=== PATIENT | female | born 1975 | race Caucasian/White ===

== ENCOUNTER → 2024-10-06 | Outpatient (CLI) | payer MEDICAID, SELFPAY ==
[2024-10-06 12:31] LABS: AST(SGOT) 26 U/L (<=31); Alanine Aminotransfer ALT/SGPT 24 U/L (<=34); Albumin, Serum 4.0 g/dL (3.5-5.0); Alkaline Phosphatase 83 U/L (35-104); Anion Gap 14 (5-15); BUN 15 mg/dL (4-19); BUN/Creat Ratio 17.2 RATIO (10-20); Calcium,Total 9.2 mg/dL (7.6-11.0); Carbon Dioxide 22.2 mmol/L (21.0-32.0); Chloride 103 mmol/L (98-108); Cholesterol 215 mg/dL (<=200); Globulin 3.8 g/dL (2.2-4.2); Glucose 96 mg/dL (70-99); HIV Nonreactive (Nonreactive); Low Density Lipoprotein Calc. 130 mg/dL; Potassium 4.3 mmol/L (3.3-5.1); Syphilis Antibodies Nonreactive (Nonreactive); Triglycerides 142 mg/dL; Very Low Density Lipoprotein 28 mg/dL (5-40); cholesterol:hdl ratio screen 3.79
[2024-10-09 12:08] LABS: HEPATITIS B SURFACE AG Negative (Negative); Hep C Antibodies Reactive (Non Reactive)
== END | disposition home or self-care (01) ==
PROVIDERS: PCP Nurse Practitioner Family; Referring Provider Nurse Practitioner Family; Visit Provider Nurse Practitioner Family
DX: R73.03 Prediabetes (principal); Z13.220 Encounter for screening for lipoid disorders; Z11.3 Encounter for screening for infections with a predominantly sexual mode of transmission
CPT/HCPCS: 36415; 80053; 80061; 80074; 83036; 86703; 86780

== ENCOUNTER → 2024-10-15 | Outpatient (CLI) | payer MEDICAID, SELFPAY ==
[2024-10-15 15:18] LABS: Mucous, Urine 0 SEEN /hpf (<or=2+); Red Blood Cells-Urine 0 SEEN /hpf (0-5)
[2024-10-15 16:48] LABS: Hematocrit 39.7 % (37-47); Hemoglobin 12.8 g/dL (12.0-15.0); Immature Granulocytes Count 0.020 X10^3/uL (0.0-0.0); Mean Corp Hgb Conc 32.2 g/dL (32-36); Mean Corpuscular Volume 90.2 fL (81-99); Mean Platelet Vol. 9.6 fl (6.2-12.0); NRBC Flagged by Analyzer 0 % (0-5); Platelet Count 253 K/mm3 (150-450); RBC Distribution Width CV 13.7 % (11.6-14.6); RBC Distribution Width SD 45.6 fl (35.1-43.9); Red Blood Count 4.40 M/mm3 (4.2-5.4); White Blood Count 4.4 K/mm3 (4.4-11.0)
[2024-10-15 17:05] LABS: AST(SGOT) 25 U/L (<=31); Alanine Aminotransfer ALT/SGPT 18 U/L (<=34); Albumin, Serum 3.8 g/dL (3.5-5.0); Alkaline Phosphatase 77 U/L (35-104); Anion Gap 10 (5-15); BUN 8 mg/dL (4-19); BUN/Creat Ratio 11.6 RATIO (10-20); Calcium,Total 9.5 mg/dL (7.6-11.0); Carbon Dioxide 26.1 mmol/L (21.0-32.0); Chloride 102 mmol/L (98-108); Globulin 3.5 g/dL (2.2-4.2); Glucose 110 mg/dL (70-99); Potassium 4.2 mmol/L (3.3-5.1); Pro- Brain NATRIURETIC PEPTIDE 103 pg/mL (<=450)
[2024-10-15 17:49] LABS: Color, Urine Yellow (Yellow); Glucose, Dipstick Normal (Normal); Ketone-Dipstick Negative (Negative); Leukocyte Esterase-Dipstick Negative /ul (Negative); Nitrite-Dipstick Negative (Negative); Occult Blood-Urine Negative /ul (Negative); Protein-Dipstick Negative (Negative); Specific Gravity, Urine 1.010 (1.002-1.030); Urine Bilirubin Dipstick Negative (Negative)
[2024-10-15 18:55] LABS: Squamous Epithelial Cells - UA 0-5 SEEN /hpf (5-10)
[2024-10-20 10:09] LABS: HPV APTIMA, High Risk Negative (Negative)
== END | disposition home or self-care (01) ==
LOC: VSLAB 15:05
PROVIDERS: PCP Nurse Practitioner Family; Visit Provider Nurse Practitioner Family
DX: R63.5 Abnormal weight gain (principal); R30.0 Dysuria; Z12.4 Encounter for screening for malignant neoplasm of cervix
CPT/HCPCS: 36415; 80053; 81001; 83880; 85025; 87086; 87088; 87624; 88175; G0145

== ENCOUNTER → 2024-11-21 | Outpatient (CLI) | payer MEDICAID, SELFPAY ==
--- OUTSIDE RECORDS SUMMARY | 2024-11-21 11:31 | XMS RPT_ITS | CCD ---
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 M100.2200, L503.7505, L500.4050 #### [facility] [address] [place], [address] MCHC (RBC) [Mass/Vol] 32.2 g/dL Normal 32-36 [facility] Comment on above: Performed By: #### L 7400.0280, [id number], L400.0001, L100.0100, M100.2200, L503.7505, L500.4050 #### [facility] [address] [place], [address] MCV (RBC) [Entitic vol] 90.2 fL Normal 81-99 [facility] Comment on above: Performed By: #### L 7400.0280, [id number], L400.0001, L100.0100, M100.2200, L503.7505, L500.4050 #### [facility] [address] [place], [address] Monocytes/100 WBC (Bld) 9.2 % Normal 0-10 [facility] Comment on above: Performed By: #### L 7400.0280, [id number], L400.0001, L100.0100, M100.2200, L503.7505, L500.4050 #### [facility] [address] [place], [address] Neutrophils/100 WBC (Bld) 48.9 % Normal 47-70 [facility] Comment on above: Performed By: #### L 7400.0280, [id number], L400.0001, L100.0100, M100.2200, L503.7505, L500.4050 #### [facility] [address] [place], [address] Nucleated RBC (Bld) [#/Vol] 0 10*3/uL Normal 0-5 [facility] Comment on above: Performed By: #### L 7400.0280, L3410.9992, L400.0001, L100.0100, M100.2200, L503.7505, L500.4050 #### [facility] [address] [place], [address] Platelet mean volume (Bld) [Entitic vol] 9.6 fL Normal 6.2-12.0 [facility] Comment on above: Performed By: #### L 7400.0280, L3410.9992, L400.0001, L100.0100, M100.2200, L503.7505, L500.4050 #### [facility] [address] [place], [address] Platelets (Bld) [#/Vol] 253 10*3/uL Normal 150-450 [facility] Comment on above: Performed By: #### L 7400.0280, L3410.9992, L400.0001, L100.0100, M100.2200, L503.7505, L500.4050 #### [facility] [address] [place], [address] RBC (Bld) [#/Vol] 4.40 10*6/uL Normal 4.2-5.4 [facility] Comment on above: Performed By: #### L 7400.0280, L3410.9992, L400.0001, L100.0100, M100.2200, L503.7505, L500.4050 #### [facility] [address] [place], [address] RDW SD 45.6 fl High 35.1-43.9 [facility] Comment on above: Performed By: #### L 7400.0280, L3410.9992, L400.0001, L100.0100, M100.2200, L503.7505, L500.4050 #### [facility] [address] [place], [address] WBC (Bld) [#/Vol] 4.4 10*3/uL Normal 4.4-11.0 [facility] Comment on above: Performed By: #### L 7400.0280, L3410.9992, L400.0001, L100.0100, M100.2200, L503.7505, L500.4050 #### [facility] [address] [place], [address] Carbon dioxide, total [Moles /volume] in Central venous bloodOrdered By: Kayla Diego on 10-15-2024 CO2 [Moles/Vol] 26.1 mmol/L 21.0-32.0 [facility] Cervical or vaginal specimen microscopic examination by liquid based cytology (reportOrdered By: Kayla Diego on 10-15-2024 Cytology report Cyto stain.thin prep Doc (Cvx/Vag) Comment . [facility] Comment on above: Criteria not met, HP V Genotype not performed.Performed at: - [facility] [id number] Director: Liz Brown MD, Phone: [phone] at: = - [facility] [id number] Director: Liz Brown MD, Phone: [phone] Cervical or vagninal specime n microscopic examination by cytology stain (reported asOrdered By: Kayla Diego on 10-15-2024 Cytology report Cyto stain Doc (Cvx/Vag) Comment . [facility] Comment on above: The Pap smear is a s creening test designed to aid in thedetection of premalignant and malignant conditions of theuterine cervix. It is not a diagnostic procedure andshould not be used as the sole means of detecting cervicalcancer. Both false-positive and false-negative reports dooccur. Chloride assayOrdered By: Janie Diego on 10-15-2024 Chloride [Moles/Vol] 102 mmol/L 98-108 [facility] Comprehensive Metabolic Prof ilon 10-15-2024 Albumin [Mass/Vol] 3.8 g/dL Normal 3.5-5.0 [facility] Comment on above: Performed By: #### L 7400.0280, L3410.9992, L400.0001, L100.0100, M100.2200, L503.7505, L500.4050 #### [facility] [address] [place], [address] Albumin/Globulin [Mass ratio] 1.1 {ratio} Normal 0.9-2.4 [facility] Comment on above: Performed By: #### L 7400.0280, L3410.9992, L400.0001, L100.0100, M100.2200, L503.7505, L500.4050 #### [facility] [address] [place], [address] ALK PHOS 77 U/L Normal 35-104 [facility] Comment on above: Performed By: #### L 7400.0280, L3410.9992, L400.0001, L100.0100, M100.2200, L503.7505, L500.4050 #### [facility] [address] [place], [address] ALT [Catalytic activity/Vol] 18 U/L Normal <=34 [facility] Comment on above: Performed By: #### L 7400.0280, L3410.9992, L400.0001, L100.0100, M100.2200, L503.7505, L500.4050 #### [facility] [address] [place], [address] AST [Catalytic activity/Vol] 25 U/L Normal <=31 [facility] Comment on above: Performed By: #### L 7400.0280, L3410.9992, L400.0001, L100.0100, M100.2200, L503.7505, L500.4050 #### [facility] [address] [place], [address] Bilirubin [Mass/Vol] 0.27 mg/dL Normal 0.00-1.30 [facility] Comment on above: Performed By: #### L 7400.0280, L3410.9992, L400.0001, L100.0100, M100.2200, L503.7505, L500.4050 #### [facility] [address] [place], [address] BUN/CRE 11.6 RATIO Normal 10-20 [facility] Comment on above: Performed By: #### L 7400.0280, L3410.9992, L400.0001, L100.0100, M100.2200, L503.7505, L500.4050 #### [facility] [address] [place], [address] Calcium [Mass/Vol] 9.5 mg/dL Normal 7.6-11.0 [facility] Comment on above: Performed By: #### L 7400.0280, L3410.9992, L400.0001, L100.0100, M100.2200, L503.7505, L500.4050 #### [facility] [address] [place], [address] Chloride [Moles/Vol] 102 mmol/L Normal 98-108 [facility] Comment on above: Performed By: #### L 7400.0280, L3410.9992, L400.0001, L100.0100, M100.2200, L503.7505, L500.4050 #### [facility] [address] [place], [address] CO2 [Moles/Vol] 26.1 mmol/L Normal 21.0-32.0 [facility] Comment on above: Performed By: #### L 7400.0280, L3410.9992, L400.0001, L100.0100, M100.2200, L503.7505, L500.4050 #### [facility] [address] [place], [address] Creatinine [Mass/Vol] 0.72 mg/dL Normal 0.70-1.20 [facility] Comment on above: Performed By: #### L 7400.0280, L3410.9992, L400.0001, L100.0100, M100.2200, L503.7505, L500.4050 #### [facility] [address] [place], [address] GAP 10 Normal 5-15 [facility] Comment on above: Performed By: #### L 7400.0280, L3410.9992, L400.0001, L100.0100, M100.2200, L503.7505, L500.4050 #### [facility] [address] [place], [address] GFR/1.73 sq M.predicted among non-blacks MDRD (S/P/Bld) [Vol rate/Area] 104 mL/min/{1.73_m2} Normal >60 [facility] Comment on above: Result Comment: mL/m in/1.73m2 CKD-EPI Creatinine Equation (2020) Performed By: #### L 7400.0280, L3410.9992, L400.0001, L100.0100, M100.2200, L503.7505, L500.4050 #### [facility] [address] [place], [place], [address] Globulin (S) [Mass/Vol] 3.5 g/dL Normal 2.2-4.2 [facility] Comment on above: Performed By: #### L 7400.0280, L3410.9992, L400.0001, L100.0100, M100.2200, L503.7505, L500.4050 #### [facility] [address] [place], [address] Glucose [Mass/Vol] 110 mg/dL High 70-99 [facility] Comment on above: Performed By: #### L 7400.0280, L3410.9992, L400.0001, L100.0100, M100.2200, L503.7505, L500.4050 #### [facility] [address] [place], [address] Potassium [Moles/Vol] 4.2 mmol/L Normal 3.3-5.1 [facility] Comment on above: Performed By: #### L 7400.0280, L3410.9992, L400.0001, L100.0100, M100.2200, L503.7505, L500.4050 #### [facility] [address] [place], [address] Sodium [Moles/Vol] 138 mmol/L Normal 133-145 [facility] Comment on above: Performed By: #### L 7400.0280, L3410.9992, L400.0001, L100.0100, M100.2200, L503.7505, L500.4050 #### [facility] [address] [place], [address] T PROT 7.3 g/dL Normal 5.9-8.4 [facility] Comment on above: Performed By: #### L 7400.0280, L3410.9992, L400.0001, L100.0100, M100.2200, L503.7505, L500.4050 #### [facility] [address] [place], [address] Urea nitrogen [Mass/Vol] 8 mg/dL Normal 4-19 [facility] Comment on above: Performed By: #### L 7400.0280, L3410.9992, L400.0001, L100.0100, M100.2200, L503.7505, L500.4050 #### [facility] [address] [place], [address] Detection in cervical specim en of any of human papilloma virus (HPV) 16, 18, 31, 33,Ordered By: Kayla Diego on 10-15-2024 HPV 16+18+31+33+35+39+45+ 51+52+56+58+59+66+68 DNA Probe+sig amp Ql (Cvx) Negative Negative [facility] Comment on above: This nucleic acid am plification test detects fourteen high- risk HPV types (16,18,31,33,35,39,45,51,52,56,58,59,66,68)without differentiation. Eosinophil percentageOrdered By: Kayla Diego on 10-15-2024 Eosinophils/100 WBC (Bld) 1.4 % 0-5 [facility] Erythrocyte distribution wid th ratioOrdered By: Kayladallas Daviscristel on 10-15-2024 Erythrocyte distribution width (RBC) [Ratio] 13.7 % 11.6-14.6 [facility] Erythrocyte distribution wid th standard deviationOrdered By: Kayladallas Diego on 10-15-2024 Erythrocyte distribution width (RBC) [Ratio] 45.6 fl High 35.1-43.9 [facility] Glomerular filtration rate ( GFR) estimation/1.73 sq m using serum, plasma, or whole bOrdered By: Kayla Diego on 10-15-2024 GFR/1.73 sq M.predicted among non-blacks MDRD (S/P/Bld) [Vol rate/Area] 104 mL/min/{1.73_m2} >60 [facility] Comment on above: mL/min/1.73m2 CKD-EP I Creatinine Equation (2020) Hematocrit Auto (Bld) [Volum e fraction]Ordered By: Kayla Diego on 10-15-2024 Hematocrit (Bld) [Volume fraction] 39.7 % 37-47 [facility] Hemoglobin measurementOrdere d By: Kayla Diego on 10-15-2024 Hemoglobin (Bld) [Mass/Vol] 12.8 g/dL 12.0-15.0 [facility] Immature granulocytes/100 WB C Auto (Bld)Ordered By: Kayla Diego on 10-15-2024 Immature granulocytes/100 WBC (Bld) 0.500 % 0.0-0.9 [facility] Comment on above: IG% - Immature Granu locytes (promyelocytes, myelocytes and metamyelocytes) > 1% indicates that a LEFT SHIFT is Present. Ketones Test strip Ql (U)Ord ered By: Kayla Diego on 10-15-2024 Ketones Ql (U) Negative Negative [facility] L503.7505on 10-15-2024 Natriuretic peptide B (Bld) [Mass/Vol] 103 pg/mL Normal <=450 [facility] Comment on above: Result Comment: Hear t Failure Unlikely: < 300 pg/mL Heart Failure Likely < 50 Years: > 450 pg/mL 50-75 Years: > 900 pg/mL >75 Years: > 1800 pg/mL Performed By: #### L 7400.0280, L3410.9992, L400.0001, L100.0100, M100.2200, L503.7505, L500.4050 #### [facility] [address] [place], [address] Laboratory - Chemistry and C hemistry - challengeOrdered By: Kayla Diego on 10-15-2024 AST [Catalytic activity/Vol] 25 U/L <32 [facility] - CytologyOrdered By: Kayla Diego on 10-15-2024 [employer] Cyto stain Nom (Cvx/Vag) [ID] Comment . [facility] Comment on above: Andres Soares ologist (ASCP) Laboratory - Miscellaneous t estsOrdered By: Kayla Diego on 10-15-2024 Service comment (Unsp spec) [Interp] . . [facility] MCV (mean corpuscular volume ) determinationOrdered By: Kayla Diego on 10-15-2024 MCV (RBC) [Entitic vol] 90.2 fL 81-99 [facility] Mean corpuscular hemoglobin (MCH) determinationOrdered By: Kayla Diego on 10-15-2024 MCH (RBC) [Entitic mass] 29.1 pg 27.0-32.0 [facility] Mean corpuscular hemoglobin concentration (MCHC) determinationOrdered By: Kayla Diego on 10-15-2024 MCHC (RBC) [Mass/Vol] 32.2 g/dL 32-36 [facility] Mean platelet volume determi nationOrdered By: Kayla Diego on 10-15-2024 Platelet mean volume (Bld) [Entitic vol] 9.6 fL 6.2-12.0 [facility] Microscopic analysis of urin e for red blood cells (RBC)Ordered By: Kayla iDego on 10-15-2024 Microscopic analysis of urine for red blood cells (RBC) 0 SEEN /hpf 0-5 [facility] Monocyte percentageOrdered B y: Kayla Diego on 10-15-2024 Monocytes/100 WBC (Bld) 9.2 % 0-10 [facility] Mucus LM Ql (Urine sed)Order ed By: Kayla Diego on 10-15-2024 Mucus Ql (Urine sed) 0 SEEN /hpf [facility] Natriuretic peptide.B prohor vee N-Terminal [Mass/volume] in Serum or PlasmaOrdered By: Kayla Diego on 10-15-2024 Natriuretic peptide.B prohormone N-Terminal [Mass/Vol] 103 pg/mL <450 [facility] Comment on above: Heart Failure Unlike ly: < 300 pg/mLHeart Failure Likely< 50 Years: > 450 pg/mL50-75 Years: > 900 pg/mL>75 Years: > 1800 pg/mL Neutrophil percentageOrdered By: Kayla Diego on 10-15-2024 Neutrophils/100 WBC (Bld) 48.9 % 47-70 [facility] Nitrite Test strip Ql (U)Ord ered By: Kayla Dieog on 10-15-2024 Nitrite Ql (U) Negative Negative [facility] No Panel InformationOrdered By: Kayla Diego on 10-15-2024 Pap Smear Specimen Adequacy Comment . [facility] Comment on above: Satisfactory for jeannie luation. Endocervical and/or squamous metaplasticcells (endocervical component) are present. Nucleated red blood cell per centageOrdered By: Kayla Diego on 10-15-2024 Nucleated RBC/100 WBC (Bld) [Ratio] 0 % 0-5 [facility] Platelet countOrdered By: Janie Diego on 10-15-2024 Platelets (Bld) [#/Vol] 253 10*3/uL 150-450 [facility] Potassium measurement (mass/ volume)Ordered By: Kayla Diego on 10-15-2024 Potassium (Unsp spec) [Mass/Vol] 4.2 mmol/L 3.3-5.1 [facility] Protein Test strip Ql (U)Ord ered By: Kayla Diego on 10-15-2024 Protein Ql (U) Negative Negative [facility] RBC Auto (Bld) [#/Vol]Ordere d By: Kayla Diego on 10-15-2024 RBC (Bld) [#/Vol] 4.40 10*6/uL 4.2-5.4 [facility] Serum creatinine measurement (mass/volume)Ordered By: Kayla Diego on 10-15-2024 Creatinine [Mass/Vol] 0.72 mg/dL 0.70-1.20 [facility] Serum globulin measurementOr dered By: Kayla Diego 10-15-2024 Globulin (S) [Mass/Vol] 3.5 g/dL 2.2-4.2 [facility] Serum glucose measurement (m ass/volume)Ordered By: Kayla Diego on 10-15-2024 Glucose [Mass/Vol] 110 mg/dL High 70-99 [facility] Serum or plasma alanine valdivia otransferase (ALT) measurementOrdered By: Kayla Diego 10-15-2024 ALT [Catalytic activity/Vol] 18 U/L <35 [facility] Serum or plasma albumin marilee urement (mass/volume)Ordered By: Kayla Diego 10-15-2024 Albumin [Mass/Vol] 3.8 g/dL 3.5-5.0 [facility] Serum or plasma albumin/glob ulin mass ratioOrdered By: Kayla Diego 10-15-2024 Albumin/Globulin [Mass ratio] 1.1 {ratio} 0.9-2.4 [facility] Serum or plasma alkaline emerson sphatase measurementOrdered By: Kayla Diego 10-15-2024 ALP [Catalytic activity/Vol] 77 U/L 35-104 [facility] Serum or plasma calcium marilee urement (mass/volume)Ordered By: Kayla Diego 10-15-2024 Calcium [Mass/Vol] 9.5 mg/dL 7.6-11.0 [facility] Serum or plasma urea nitroge n measurement (mass/volume)Ordered By: Kayla Diego on 10-15-2024 Urea nitrogen [Mass/Vol] 8 mg/dL 4-19 [facility] Sodium levelOrdered By: Amaris Diego on 10-15-2024 Sodium [Moles/Vol] 138 mmol/L 133-145 [facility] Squamous epithelial cells de tection in urine sediment by light microscopyOrdered By: Kayla Diego on 10-15-2024 Epithelial cells.squamous LM Ql (Urine sed) 0-5 SEEN /hpf - [facility] Total proteinOrdered By: Rey landy Johnathon on 10-15-2024 Protein [Mass/Vol] 7.3 g/dL 5.9-8.4 [facility] Urinalysis, Completeon 10-15 EPI,SQUAMOUS 0-5 SEEN Normal - [facility] Comment on above: Order Comment: CLEAN CATCH Performed By: #### L 7400.0280, L3410.9992, L400.0001, L100.0100, M100.2200, L503.7505, L500.4050 #### [facility] [address] [place], [address] WBC 0-5 SEEN Normal 0-5 [facility] Comment on above: Order Comment: CLEAN CATCH Performed By: #### L 7400.0280, L3410.9992, L400.0001, L100.0100, M100.2200, L503.7505, L500.4050 #### [facility] [address] [place], [address] BACTERIA 0 SEEN Normal None Seen [facility] Comment on above: Order Comment: CLEAN CATCH Performed By: #### L 7400.0280, L3410.9992, L400.0001, L100.0100, M100.2200, L503.7505, L500.4050 #### [facility] [address] [place], [address] Mucus Ql (Urine sed) 0 SEEN Normal [facility] Comment on above: Order Comment: CLEAN CATCH Performed By: #### L 7400.0280, L3410.9992, L400.0001, L100.0100, M100.2200, L503.7505, L500.4050 #### [facility] [address] [place], [address] RBC 0 SEEN Normal 0-5 [facility] Comment on above: Order Comment: CLEAN CATCH Performed By: #### L 7400.0280, L3410.9992, L400.0001, L100.0100, M100.2200, L503.7505, L500.4050 #### [facility] [address] [place], [address] Urine clarityOrdered By: Rey Diego on 10-15-2024 Clarity (U) Clear Clear [facility] Urine color determinationOrd ered By: Kayla Diego on 10-15-2024 Color (U) Yellow Yellow [facility] Urine cultureOrdered By: Rey Diego on 10-15-2024 Bacteria identified Cx Nom (U) Positive Abnormal [facility] Urine glucose detectionOrder ed By: Kayla Diego on 10-15-2024 Glucose Ql (U) Normal mg/dl Normal [facility] Urine leukocyte esterase det ection by dipstickOrdered By: Kayla Diego on 10-15-2024 Leukocyte esterase Test strip Ql (U) Negative Negative [facility] Urine pHOrdered By: Kayla gonzales on 10-15-2024 pH (U) 7.0 [pH] 5.0 - 8.0 [facility] Urine sediment bacteria coun t by microscopy (number/high power field)Ordered By: Kayla Diego on 10-15-2024 Bacteria LM.HPF (Urine sed) [#/Area] 0 /[HPF] None Seen [facility] Urine specific gravity measu rementOrdered By: Kayla Diego on 10-15-2024 Specific gravity (U) [Rel density] 1.010 1.002-1.030 [facility] Urine urobilinogen measureme ntOrdered By: Kayla Diego on 10-15-2024 Urobilinogen Ql (U) 1 mg/dl High Normal [facility] White blood cell (WBC) count Ordered By: Kayla Johnathon on 10-15-2024 WBC (Bld) [#/Vol] 4.4 10*3/uL 4.4-11.0 [facility] White blood cell countOrdere d By: Kayla Diego on 10-15-2024 White blood cell count 0-5 SEEN /hpf 0-5 [facility] Hepatitis Panel Acuteon 09-29 HCV Interpretat Comment Normal . [facility] Comment on above: Result Comment: Posi tive HCV antibody screen without the presence of HCV RNA is consistent with a resolved past infection or a false positive HCV antibody. Consider repeat testing after one month. Performed at: [facility] [address] [id number] [employer]: Александр Florian PhD, Phone: [phone] Performed at: [facility] [address] [id number] [employer]: Radha Roche MD, Phone: [phone] Performed By: #### L 501.9985, L3000.0375, L3890.6006, L500.4050, L509.8002, L500.4100 #### [facility] [address] [place], [address] HCV log 10 TNP Normal . [facility] Comment on above: Performed By: #### L 501.9985, L3000.0375, L3890.6006, L500.4050, L509.8002, L500.4100 #### [facility] [address] [place], [address] HEP B CORE,IgM Negative Normal Negative [facility] Comment on above: Performed By: #### L 501.9985, L3000.0375, L3890.6006, L500.4050, L509.8002, L500.4100 #### [facility] [address] [place], [address] HEP B SURF AG Negative Normal Negative [facility] Comment on above: Performed By: #### L 501.9985, L3000.0375, L3890.6006, L500.4050, L509.8002, L500.4100 #### [facility] [address] [place], [address] Hep C Quant Not detected Normal . [facility] Comment on above: Performed By: #### L 501.9985, L3000.0375, L3890.6006, L500.4050, L509.8002, L500.4100 #### [facility] [address] [place], [address] HEP C VIRUS AB Reactive Abnormal Non Reactive [facility] Comment on above: Result Comment: Clie nt Requested Flag Performed By: #### L 501.9985, L3000.0375, L3890.6006, L500.4050, L509.8002, L500.4100 #### [facility] [address] [place], [address] HEPATITIS A-IgM Negative Normal Negative [facility] Comment on above: Result Comment: A ne gative anti-HAV IgM result suggests no recent or current HAV infection. Performed By: #### L 501.9985, L3000.0375, L3890.6006, L500.4050, L509.8002, L500.4100 #### [facility] [address] [place], [address] Test Informatio Comment Normal . [facility] Comment on above: Result Comment: The quantitative range of this assay is 15 IU/mL to 100 million IU/mL. Performed By: #### L 501.9985, L3000.0375, L3890.6006, L500.4050, L509.8002, L500.4100 #### [facility] [address] [place], [place], [id number] Anion gap in Serum or Plasma Ordered By: Kayla Diego on 10-06-2024 Anion gap [Moles/Vol] 14 mmol/L 5-15 [facility] BUN/creatinine ratioOrdered By: Kayla Diego on 10-06-2024 Urea nitrogen/Creatinine [Mass ratio] 17.2 mg/mg 10- [facility] Bilirubin, totalOrdered By: Kayla Diego on 10-06-2024 Bilirubin [Mass/Vol] 0.45 mg/dL 0.00-1.30 [facility] Calculated very low density lipoprotein (VLDL) cholesterol measurementOrdered By: Kayla Diego on 10-06-2024 Calculated very low density lipoprotein (VLDL) cholesterol measurement 28 mg/dL 5-40 [facility] Carbon dioxide, total [Moles /volume] in Central venous bloodOrdered By: Kayla Diego on 10-06-2024 CO2 [Moles/Vol] 22.2 mmol/L 21.0-32.0 [facility] Chloride assayOrdered By: Janie Diego on 10-06-2024 Chloride [Moles/Vol] 103 mmol/L 98-108 [facility] Comprehensive Metabolic Prof ilon 10-06-2024 Albumin [Mass/Vol] 4.0 g/dL Normal 3.5-5.0 [facility] Comment on above: Performed By: #### L 501.9985, L3000.0375, L3890.6006, L500.4050, L509.8002, L500.4100 #### [facility] [address] [place], [place], [id number] Albumin/Globulin [Mass ratio] 1.0 {ratio} Normal 0.9-2.4 [facility] Comment on above: Performed By: #### L 501.9985, L3000.0375, L3890.6006, L500.4050, L509.8002, L500.4100 #### [facility] [address] [place], [address] ALK PHOS 83 U/L Normal 35-104 [facility] Comment on above: Performed By: #### L 501.9985, L3000.0375, L3890.6006, L500.4050, L509.8002, L500.4100 #### [facility] [address] [place], [address] ALT [Catalytic activity/Vol] 24 U/L Normal <=34 [facility] Comment on above: Performed By: #### L 501.9985, L3000.0375, L3890.6006, L500.4050, L509.8002, L500.4100 #### [facility] [address] [place], [address] AST [Catalytic activity/Vol] 26 U/L Normal <=31 [facility] Comment on above: Performed By: #### L 501.9985, L3000.0375, L3890.6006, L500.4050, L509.8002, L500.4100 #### [facility] [address] [place], [place], [id number] ([phone] Bilirubin [Mass/Vol] 0.45 mg/dL Normal 0.00-1.30 [facility] Comment on above: Performed By: #### L 501.9985, L3000.0375, L3890.6006, L500.4050, L509.8002, L500.4100 #### [facility] [address] [place], [address] BUN/CRE 17.2 RATIO Normal 10-20 [facility] Comment on above: Performed By: #### L 501.9985, L3000.0375, L3890.6006, L500.4050, L509.8002, L500.4100 #### [facility] [address] [place], [place], [id number] [phone] Calcium [Mass/Vol] 9.2 mg/dL Normal 7.6-11.0 [facility] Comment on above: Performed By: #### L 501.9985, L3000.0375, L3890.6006, L500.4050, L509.8002, L500.4100 #### [facility] [address] [place], [address] Chloride [Moles/Vol] 103 mmol/L Normal 98-108 [facility] Comment on above: Performed By: #### L 501.9985, L3000.0375, L3890.6006, L500.4050, L509.8002, L500.4100 #### [facility] [address] [place], [address] CO2 [Moles/Vol] 22.2 mmol/L Normal 21.0-32.0 [facility] Comment on above: Performed By: #### L 501.9985, L3000.0375, L3890.6006, L500.4050, L509.8002, L500.4100 #### [facility] [address] [place], [address] Creatinine [Mass/Vol] 0.88 mg/dL Normal 0.70-1.20 [facility] Comment on above: Performed By: #### L 501.9985, L3000.0375, L3890.6006, L500.4050, L509.8002, L500.4100 #### [facility] [address] [place], [address] GAP 14 Normal 5-15 [facility] Comment on above: Performed By: #### L 501.9985, L3000.0375, L3890.6006, L500.4050, L509.8002, L500.4100 #### [facility] [address] [place], [address] GFR/1.73 sq M.predicted among non-blacks MDRD (S/P/Bld) [Vol rate/Area] 81 mL/min/{1.73_m2} Normal >60 [facility] Comment on above: Result Comment: mL/m in/1.73m2 CKD-EPI Creatinine Equation (2020) Performed By: #### L 501.9985, L3000.0375, L3890.6006, L500.4050, L509.8002, L500.4100 #### [facility] [address] [place], [address] Globulin (S) [Mass/Vol] 3.8 g/dL Normal 2.2-4.2 [facility] Comment on above: Performed By: #### L 501.9985, L3000.0375, L3890.6006, L500.4050, L509.8002, L500.4100 #### [facility] [address] [place], [address] Glucose [Mass/Vol] 96 mg/dL Normal 70-99 [facility] Comment on above: Performed By: #### L 501.9985, L3000.0375, L3890.6006, L500.4050, L509.8002, L500.4100 #### [facility] [address] [place], [address] Potassium [Moles/Vol] 4.3 mmol/L Normal 3.3-5.1 [facility] Comment on above: Performed By: #### L 501.9985, L3000.0375, L3890.6006, L500.4050, L509.8002, L500.4100 #### [facility] [address] [place], [address] Sodium [Moles/Vol] 140 mmol/L Normal 133-145 [facility] Comment on above: Performed By: #### L 501.9985, L3000.0375, L3890.6006, L500.4050, L509.8002, L500.4100 #### [facility] [address] [place], [address] T PROT 7.7 g/dL Normal 5.9-8.4 [facility] Comment on above: Performed By: #### L 501.9985, L3000.0375, L3890.6006, L500.4050, L509.8002, L500.4100 #### [facility] [address] [place], [address] Urea nitrogen [Mass/Vol] 15 mg/dL Normal 4-19 [facility] Comment on above: Performed By: #### L 501.9985, L3000.0375, L3890.6006, L500.4050, L509.8002, L500.4100 #### [facility] [address] [place], [place], [address] Gastroenterology Visit Repor ton 10-06-2024 Gastroenterology Visit Report [facility] [address] [place] [address] OFFICE VISIT Date of Service: 10/06/24 MR#: [id number] Acct: [id number] Name: LINDA BRUMFIELD Rep #: [id number] : 1975 Provider: LOLA plata Age/Sex: 48/F [place] [facility] [place]: S[place] Intake Vital Signs 10/06/24 09:46 Height 5 ft 7 in Weight: 269 lb 6 oz BMI 42.2 BP 128/69 H Respiration 18 Pulse 79 Temp 97.5 F L Pulse Oximetry (%) 97 Oxygen Delivery Method room air Intake Visit Reasons: CONSTIPATION Chief Complaint: constipation Ticketing Agent Required: No Accompanied by: Self Is patient in pain?: Yes Allergies erythromycin base (From E-Mycin) Allergy (Mild, Verified 10/06/24 09:44) chest pain and swelling hydroxyzine Allergy (Mild, Verified 10/06/24 09:44) elevates heart rate Medications ???Medication ???Instructions ???Recorded ???Confirmed ???Type all seltzer fizzy melts PO PRN 10/06/24 History hydrocortisone 2.5 % topical cream 1 applic KS QD-BID PRN rectal pa in 10/06/24 10/06/24 Rx with perineal applicator and bleeding #30 grams lubiprostone 24 mcg capsule 24 mcg PO BID #60 caps 10/06/24 Rx (Amitiza) ondansetron HCl 4 mg tablet 4 mg PO Q4-6H PRN 10/06/24 5 History pantoprazole 40 mg tablet,delayed 40 mg PO QDAY #90 tabs 10/06/24 0 10/06/24 Rx release peg 3350-electrolytes 236 240 ml PO Q10M #4,000 mL 10/06/24 10/06/24 Rx gram-22.74 gram-6.74 gram-5.86 gram solution (Golytely) polyethylene glycol 3350 17 17 g PO Q10M #119 grams 10/06/24 0 10/06/24 Rx gram/dose oral powder (Miralax) ropinirole 2 mg tablet 2 mg PO QHS 10/06/24 10/06/24 Hist ory [facility] Medical History (Updated 10/06/24 @ 13:53 by Candis Stone NP-C) Anxiety disorder Hallucinations Insomnia UTI (urinary tract infection) Back pain Abdominal pain Methamphetamine use Suicidal ideation RUQ pain PTSD (post-traumatic stress disorder) Medial meniscus tear Chondromalacia of knee Migraine with aura and without status migrainosus, not intractable Drug overdose, intentional Hypokalemia Surgical History Hx of cholecystectomy H/O tubal ligation Family History Brother Alcoholism Mother Anemia affecting fifth Anemia Anxiety Asthma Arthritis Bowel disease Cancer cervical and lung Depression Diabetes Heart disease Hypertension High cholesterol Kidney disease Liver disease Mental disorder Osteoporosis Ovarian cancer Respiratory disease CVA (cerebral vascular accident) Suicide attempt Thyroid disorder COPD (chronic obstructive pulmonary disease) Father Arthritis Diabetes Myocardial infarction Hypertension HPI HPI Chief Complaint: constipation Details: LINDA BRUMFIELD, is a 48 F who presents to the office today for - constipation, chronic, lately has to use a enema to have BM - has BM once every 2 weeks - formed and loose stool with BRB - can't use the bathroom unless she uses an enema - abdominal pain - excess gas - belching, flatulence - abdominal pain, epigastric and radiates down to lower abdomen, pain >1 year - methamphetamine - last used 1 month ago - just moved here from [facility] - Marijuana use intermittent - reports a remote history to Oxy abuse - she reports a history of inpatient rehab - denies any weight loss - nausea, constant, worse with eating - denies any emesis - denies any h/o colonoscopy or EGD - reports a history of UGI 15 years ago - suicidal ideation on ROS - reports she has tendencies to try and kill herself, I do not have that feeling now - reports her last attempt was in 2023 - I feel worthless - denies having a plan - she lives alone, trying to get her own place - she is currently in school for business - reports her fiance is currently incarcerated - reports there are no weapons in the home - I am happier now than I have been in years - weight gain 30lbs in the past 6 months The patient is a 48-year-old female presenting with severe constipation and abdominal pain. The constipation has been a long-standing issue, requiring the use of enemas for relief, and bowel movements occur no less than every two weeks, often accompanied by bright red blood. The abdominal pain is described as starting in the epigastric region and radiating to the lower abdomen, with episodes severe enough to cause the patient to cry in the position. The patient reports nausea, which worsens with eating, and has experienced significant weight gain of 30 pounds over the last six [address] scan of the abdomen and pelvis from August 2023 showed mild bile duct ectasia lik (more content not included)... Normal [facility] Glomerular filtration rate ( GFR) estimation/1.73 sq m using serum, plasma, or whole bOrdered By: Kayla Diego on 10-06-2024 GFR/1.73 sq M.predicted among non-blacks MDRD (S/P/Bld) [Vol rate/Area] 81 mL/min/{1.73_m2} >60 [facility] Comment on above: mL/min/1.73m2 CKD-EP I Creatinine Equation (2020) HIVon 10-06-2024 HIV Non-Reactive Normal Nonreactive [facility] Comment on above: Result Comment: Non- Reactive Reactive Repeatedly reactive samples must be confirmed according to CDC recommended confirmatory algorithms. The subresults for either HIVAG or AHIV can be used as an aid in the selection of the confirmation algorithm for reactive samples. Send out specimens with Reactive results to [facility] for confirmation. Order the HIV antibody detection and differentiation: lc#[id number] Performed By: #### L 501.9985, L3000.0375, L3890.6006, L500.4050, L509.8002, L500.4100 #### [facility] [address] [place], [place], [id number] Hemoglobin A1con 10-06-2024 HbA1c (Bld) [Mass fraction] 5.7 % Normal <=5.6 [facility] Comment on above: Result Comment: Norm al < 5.7 % Prediabetic 5.7 - 6.4 % Diabetic >or= 6.5 % Please note range changes. Performed By: #### L 501.9985, L3000.0375, L3890.6006, L500.4050, L509.8002, L500.4100 #### [facility] [address] [place], [address] Hemoglobin A1c percentageOrd ered By: Kayla Diego on 10-06-2024 HbA1c (Bld) [Mass fraction] 5.7 % <5.7 [facility] Comment on above: Normal < 5.7 % Predi abetic 5.7 - 6.4 % Diabetic >or= 6.5 % Please note range changes. LDL calc ser/plasOrdered By: Kayla Diego on 10-06-2024 Cholesterol in LDL [Mass/Vol] 130 mg/dL [facility] Comment on above: Tpbhakkcpb=554-915 m g/dL & Higher Mlta=155 mg/dL or greater Laboratory - Chemistry and C hemistry - challengeOrdered By: Kayla Diego on 10-06-2024 AST [Catalytic activity/Vol] 26 U/L <32 [facility] Lipid Profileon 10-06-2024 CHOL:HDL 3.79 Normal [facility] Comment on above: Performed By: #### L 501.9985, L3000.0375, L3890.6006, L500.4050, L509.8002, L500.4100 #### [facility] [address] [place], [address] Cholesterol [Mass/Vol] 215 mg/dL High <=200 [facility] Comment on above: Result Comment: Chol esterol level, Desirable <200 mg/dL Borderline high cholesterol 200-239 mg/dL High cholesterol >=240 mg/dL Recommendations of the NCEP Adult Treatment Panel for the following risk-cutoff thresholds for the [place] population. Performed By: #### L 501.9985, L3000.0375, L3890.6006, L500.4050, L509.8002, L500.4100 #### [facility] [address] [place], [address] Cholesterol in HDL [Mass/Vol] 57 mg/dL Normal [facility] Comment on above: Result Comment: Margaret onal Cholesterol Education Program (NCEP) guidelines: <40 mg/dL: Low HDL-cholesterol (major risk factor for CHD) >= 60 mg/dL: High HDL-cholesterol (negative risk factor for CHD) HDL-cholesterol is affected by a number of factors, e.g. smoking, exercise, hormones, sex and age. Performed By: #### L 501.9985, L3000.0375, L3890.6006, L500.4050, L509.8002, L500.4100 #### [facility] [address] [place], [address] Cholesterol in LDL [Mass/Vol] 130 mg/dL Normal [facility] Comment on above: Result Comment: Bord vsgsyn=613-619 mg/dL Higher Gyfn=036 mg/dL or greater Performed By: #### L 501.9985, L3000.0375, L3890.6006, L500.4050, L509.8002, L500.4100 #### [facility] [address] [place], [address] Cholesterol in VLDL [Mass/Vol] 28 mg/dL Normal 5-40 [facility] Comment on above: Performed By: #### L 501.9985, L3000.0375, L3890.6006, L500.4050, L509.8002, L500.4100 #### [facility] [address] [place], [address] Triglyceride [Mass/Vol] 142 mg/dL Normal [facility] Comment on above: Result Comment: The drugs N-Acetylcysteine and Metamizole may falsely depress this assay. Normal range: <150 mg/dL Borderline High: 150-199 mg/dL High: 200-499 mg/dL Very High: >500 mg/dL Performed By: #### L 501.9985, L3000.0375, L3890.6006, L500.4050, L509.8002, L500.4100 #### [facility] [address] [place], [address] No Panel InformationOrdered By: Kayla Diego on 10-06-2024 HCV log10 Confirmation TNP [facility] Comment on above: Test not performed Hepatitis C RNA Qnt (PCR) Test Info Comment . [facility] Comment on above: The quantitative ran ge of this assay is 15 IU/mL to 100million IU/mL. Hepatitis C Virus Note Comment . [facility] Comment on above: Positive HCV antibod y screen without the presence of HCVRNA is consistent with a resolved past infection or a falsepositive HCV antibody. Consider repeat testing after onemonth.Performed at: [facility] [address] [id number] Director: Александр Florian PhD, Phone: [phone] at: [facility] [address] [id number] Director: Radha Roche MD, Phone: [phone] HIV (1&2) Antibody Non-Reactive Nonreactive [facility] Comment on above: Non-ReactiveReactive Repeatedly reactive samples must be confirmed according to CDC recommended confirmatory algorithms. The subresults for either HIVAG or AHIV can be used as an aid in the selection of the confirmation algorithm for reactive samples.Send out specimens with Reactive results to [facility] for confirmation.Order the HIV antibody detection and differentiation: #[id number] Potassium measurement (mass/ volume)Ordered By: Kayla Diego on 10-06-2024 Potassium (Unsp spec) [Mass/Vol] 4.3 mmol/L 3.3-5.1 [facility] Screening total cholesterol/ high density lipoprotein (HDL) cholesterol ratioOrdered By: Kayladallas Diego on 10-06-2024 Cholesterol.total/Cho lesterol in HDL [Mass ratio] 3.79 {ratio} [facility] Serum creatinine measurement (mass/volume)Ordered By: Kayladallas Diego on 10-06-2024 Creatinine [Mass/Vol] 0.88 mg/dL 0.70-1.20 [facility] Serum globulin measurementOr dered By: Kayla Diego on 10-06-2024 Globulin (S) [Mass/Vol] 3.8 g/dL 2.2-4.2 [facility] Serum glucose measurement (m ass/volume)Ordered By: Kayla Diego on 10-06-2024 Glucose [Mass/Vol] 96 mg/dL 70-99 [facility] Serum or plasma alanine valdivia otransferase (ALT) measurementOrdered By: Kayladallas Diego 10-06-2024 ALT [Catalytic activity/Vol] 24 U/L <35 [facility] Serum or plasma albumin marilee urement (mass/volume)Ordered By: Kayla Diego on 10-06-2024 Albumin [Mass/Vol] 4.0 g/dL 3.5-5.0 [facility] Serum or plasma albumin/glob ulin mass ratioOrdered By: [facility]ladallas [facility] 10-06-2024 Albumin/Globulin [Mass ratio] 1.0 {ratio} 0.9-2.4 [facility] Serum or plasma alkaline emerson sphatase measurementOrdered By: Kayladallas Daviscristel 10-06-2024 ALP [Catalytic activity/Vol] 83 U/L 35-104 [facility] Serum or plasma calcium marilee urement (mass/volume)Ordered By: Kayla Diego on 10-06-2024 Calcium [Mass/Vol] 9.2 mg/dL 7.6-11.0 [facility] Serum or plasma cholesterol in HDL measurement (mass/volume)Ordered By: Kayla Diego on 10-06-2024 Cholesterol in HDL [Mass/Vol] 57 mg/dL >40 [facility] Comment on above: National Cholesterol Education Program (NCEP) guidelines:<40 mg/dL: Low HDL-cholesterol (major risk factor for CHD)>= 60 mg/dL: High HDL-cholesterol (negative risk factor for CHD)HDL-cholesterol is affected by a number of factors, e.g. smoking, exercise, hormones, sex and age. Serum or plasma cholesterol measurement (mass/volume)Ordered By: Kayla Diego on 10-06-2024 Cholesterol [Mass/Vol] 215 mg/dL High <201 [facility] Comment on above: Cholesterol level, D esirable <200 mg/dLBorderline high cholesterol 200-239 mg/dLHigh cholesterol >=240 mg/dLRecommendations of the NCEP Adult Treatment Panel for the following risk-cutoff thresholds for the [place] population. Serum or plasma hepatitis B virus surface antigen detection by immunoassayOrdered By: Kayla Diego on 10-06-2024 HBV surface Ag IA Ql Negative Negative [facility] Serum or plasma urea nitroge n measurement (mass/volume)Ordered By: Kayla Diego on 10-06-2024 Urea nitrogen [Mass/Vol] 15 mg/dL 4-19 [facility] Sodium levelOrdered By: Amaris Diego on 10-06-2024 Sodium [Moles/Vol] 140 mmol/L 133-145 [facility] Syphilis Antibodieson 2024 Syphilis Abs Non-Reactive Normal Nonreactive [facility] Comment on above: Performed By: #### L 501.9985, L3000.0375, L3890.6006, L500.4050, L509.8002, L500.4100 #### [facility] [address] [place], [place], [id number] Total proteinOrdered By: Rey Diego on 10-06-2024 Protein [Mass/Vol] 7.7 g/dL 5.9-8.4 [facility] Triglycerides measurementOrd ered By: Kayla Diego on 10-06-2024 Triglyceride [Mass/Vol] 142 mg/dL <199 [facility] Comment on above: The drugs N-Acetylcy steine and Metamizole may falsely depress this assay. Normal range: <150 mg/dLBorderline High: 150-199 mg/dLHigh: 200-499 mg/dLVery High: >500 mg/dL CULT URINEon 09-27-2023 CULT URINE SPECIMEN DESCRIPTION Urine, Clean Catch SPECIMEN TYPE Urine Tested at [facility] [address] [place] [address] CULTURE RESULTS Multiple bacterial species isolated from urine consistent with urogenital commensal organisms. REPORT STATUS 09/27/2023 FINAL REPORT Normal [facility] Comment on above: Performed By: #### U RNC #### Eva Fernández ([id number]) [facility] [address] [place] [address] TROPONIN I HIGH SENSITIVEon 09-26-2023 TROPONIN I HIGH SENSITIVE <3 Normal <15 [facility] Comment on above: Result Comment: Inte rpretive Guidelines: LOW RISK: <3 ng/L or Delta <4 and below 15 ng/L LOW INTERMEDIATE RISK: <15 ng/L HIGH INTERMEDIATE RISK: >/=15 ng/L HIGH RISK: >/=88 ng/L or Delta >/=[address] [facility] [address] [place] [address] Performed By: #### H STNI #### Eva Fernández ([id number]) [facility] [address] [place] [address] BASIC METABOLIC PNLon 2023 Anion gap [Moles/Vol] 9 mmol/L Normal 4-16 [facility] Comment on above: Performed By: #### B AMP #### Eva Fernández ([id number]) [facility] [address] [place] [address] Calcium [Mass/Vol] 9.0 mg/dL Normal 8.5-10.4 [facility] Comment on above: Performed By: #### B AMP #### Eva Fernández ([id number]) [facility] [address] [place] [address] Chloride [Moles/Vol] 104 mmol/L Normal 98-111 [facility] Comment on above: Performed By: #### B AMP #### Eva Fernández ([id number]) [facility] [address] [place] [address] CO2 [Moles/Vol] 26 mmol/L Normal 21-31 [facility] Comment on above: Performed By: #### B AMP #### Eva Fernández ([id number]) [facility] [address] [place] [address] Creatinine [Mass/Vol] 0.74 mg/dL Normal 0.60-1.20 [facility] [facility] Comment on above: Performed By: #### B AMP #### Eva Fernández ([id number]) [facility] [address] [place] [address] ESTIMATED GFR 100 mL/min/1.73 m2 Normal >59 [facility] Comment on above: Result Comment: Alis mated GFR was calculated using the CKD-EPI cr (2020) equation refit without race. The equation is recommended by the National Kidney Foundation - [place] Society of Nephrology Task Force. Tested at [facility] [address] [facility] [address] Performed By: #### B AMP #### Eva Fernández ([id number]) [facility] [address] [place] [address] Glucose [Mass/Vol] 97 mg/dL Normal 70-99 [facility] Comment on above: Performed By: #### B AMP #### Eva Fernández ([id number]) [facility] [address] [place] [address] Potassium [Moles/Vol] 3.7 mmol/L Normal 3.6-5.1 [facility] Comment on above: Performed By: #### B AMP #### Eva Fernández ([id number]) [facility] [address] [place] [address] Sodium [Moles/Vol] 139 mmol/L Normal 135-145 [facility] Comment on above: Performed By: #### B AMP #### Eva Fernández ([id number]) [facility] [address] [place] [address] Urea nitrogen [Mass/Vol] 13 mg/dL Normal 8-26 [facility] Comment on above: Performed By: #### B AMP #### Eva Fernández ([id number]) [facility] [address] [place] [address] CBC W/ DIFFon 09-25-2023 ABS BASOS 0.00 THOU/mcL Normal 0.00-0.20 [facility] Comment on above: Performed By: #### C BCD #### Eva Fernández ([id number]) [facility] [address] [place] [address] ABS EOS 0.10 THOU/mcL Normal 0.03-0.45 [facility] Comment on above: Performed By: #### C BCD #### Eva Fernández ([id number]) [facility] [address] [place] [address] ABS LYMPHS 2.10 THOU/mcL Normal 1.00-4.00 [facility] Comment on above: Performed By: #### C BCD #### Eva Fernández ([id number]) [facility] [address] [place] [address] ABS MONOS 0.50 THOU/mcL Normal 0.20-0.90 [facility] Comment on above: Performed By: #### C BCD #### Eva Fernández ([id number]) [facility] [address] [place] [address] ABS NEUTROPHIL 2.90 THOU/mcL Normal 1.80-7.70 [facility] Comment on above: Performed By: #### C BCD #### Eva Fernández ([id number]) [facility] [address] [place] [address] Basophils/100 WBC (Bld) 1 % Normal [facility] Comment on above: Result Comment: Test ed at [facility] [address] [facility] [address] Performed By: #### C BCD #### Eva Fernández ([id number]) [facility] [address] [place] [address] Eosinophils/100 WBC (Bld) 1 % Normal [facility] Comment on above: Performed By: #### C BCD #### Eva Fernández ([id number]) [facility] [address] [place] [address] Erythrocyte distribution width (RBC) [Ratio] 13.5 % Normal 12.3-17.0 [facility] Comment on above: Performed By: #### C BCD #### Eva Fernández ([id number]) [facility] [address] [place] [address] Hematocrit (Bld) [Volume fraction] 39.1 % Normal 36-46 [facility] Comment on above: Performed By: #### C BCD #### Eva Fernández ([id number]) [facility] [address] [place] [address] Hemoglobin (Bld) [Mass/Vol] 13.1 g/dL Normal 12.0-15.2 [facility] Comment on above: Performed By: #### C BCD #### Eva Fernández ([id number]) [facility] [address] [place] [address] Lymphocytes/100 WBC (Bld) 38 % Normal [facility] Comment on above: Performed By: #### C BCD #### Eva Fernández ([id number]) [facility] [address] [place] [address] MCH (RBC) [Entitic mass] 29.5 pg Normal 27-33 [facility] Comment on above: Performed By: #### C BCD #### Eva Fernández ([id number]) [facility] [address] [place] [address] MCHC (RBC) [Mass/Vol] 33.4 g/dL Normal 32-36 [facility] Comment on above: Performed By: #### C BCD #### Eva Fernández ([id number]) [facility] [address] [place] [address] MCV (RBC) [Entitic vol] 88.1 fL Normal 82-97 [facility] Comment on above: Performed By: #### C BCD #### Eva Fernández ([id number]) [facility] [address] [place] [address] Monocytes/100 WBC (Bld) 9 % Normal [facility] Comment on above: Performed By: #### C BCD #### Eva Fernández ([id number]) [facility] [address] [place] [address] PLATELET 215 THOU/mcL Normal 140-375 [facility] Comment on above: Performed By: #### C BCD #### Eva Fernández ([id number]) [facility] [address] [place] [address] Platelet mean volume (Bld) [Entitic vol] 8.0 fL Normal 7.4-11.5 [facility] Comment on above: Performed By: #### C BCD #### Eva Fernández ([id number]) [facility] [address] [place] [address] RBC 4.44 MIL/mcL Normal 3.80-5.20 [facility] Comment on above: Performed By: #### C BCD #### Eva Fernández ([id number]) [facility] [address] [place] [address] SEGS 51 % Normal [facility] Comment on above: Performed By: #### C BCD #### Eva Fernández ([id number]) [facility] [address] [place] [address] WBC 5.6 THOU/mcL Normal 3.6-10.5 [facility] Comment on above: Performed By: #### C BCD #### Eva Fernández ([id number]) [address] [address] [address] ABDOMEN PELVIS WO CONTRAS Ton 09-25-2023 CT ABDOMEN PELVIS WO CONTRAST CT ABDOMEN PELVIS WO CONTRAST HISTORY: Flank pain, kidney stone suspected left flank pain, vomiting , chest pain COMPARISON: Abdomen/pelvis CT 12-19 TECHNIQUE: Noncontrast multiplanar CT images of the abdomen and pelvis NOTE: If there are questions about the content of this report, please contact [facility] radiology by calling [phone] FINDINGS: LOWER CHEST: Unremarkable LIVER: Unremarkable GALLBLADDER/BILE DUCTS: Gallbladder surgically absent. Mild bile duct ectasia likely secondary to prior cholecystectomy. PANCREAS: Unremarkable. No mass or duct dilation SPLEEN: Unremarkable ADRENALS: Unremarkable KIDNEYS/URETERS: No obstructing renal or ureteral calculus. No hydronephrosis. GI TRACT: No obstruction, wall thickening, or pneumatosis. Normal appendix VESSELS: Unremarkable. No aneurysm LYMPH NODES: Unremarkable. No enlarged lymph nodes ABD WALL: Unremarkable PELVIS: Anteverted uterus. Intrauterine device in place. Unremarkable urinary bladder. BONES: Unremarkable OTHER: None IMPRESSION: No acute abdominopelvic CT abnormality. No obstructing renal or ureteral calculus. No hydronephrosis. SIGNED BY: William Reilly MD on 09/26/2023 12:21 AM 170.2 124.739 [facility] Imaging Report - Main Call Center - [facility] Call Center: Normal [facility] ED PROV NOTEon 09-25-2023 ED PROV NOTE [employer] Salesperson Authentication Interface Message Text [facility] EMERGENCY DEPARTMENT ED Encounter Arrival Date: 09/25/23 214 Linda Brumfield : 1975 [address] [place] [address] CSN: [id number] RAYRAY: [id number] EMERGENCY DEPARTMENT ENCOUNTER History: Chief Complaint Patient presents with Flank Pain Pt states she has been having flank pain on both sides for the last week with the left side hurting worse than the right, pt states the pain is rated a 7 out of 10, pt states she has been having burning and pain with urination HPI Linda Brumfield is a 47 year old female with PMH methamphetamine abuse presenting for evaluation of bilateral flank pain today. The patient reports that she is at intermittent pain of the bilateral flanks for the past week. She states the pain seems to come and go he is also been having some discomfort with urination. She denies any hematuria or history of kidney stone. Denies any fever, chest pain or shortness of breath. She does report some nausea/vomiting. History was provided by: Patient Triage Vitals ED Triage Vitals [09/25/232149] Enc Vitals Group BP 150/69 Pulse 75 Resp 18 Temp 98.2 F (36.8 C) Temp src TEMPORAL SpO2 98 % Weight 275 lb (124.7 kg) Height 5' 7 (1.702 m) Head Circumference Peak Flow Pain Score 7 Pain Loc Pain Education Exclude from Growth Chart Allergies Allergies Allergen Reactions Erythromycin Other (See Comments) Chest pain Past Medical History Past Medical History: Diagnosis Date AC (acromioclavicular) joint bone spurs PID (pelvic inflammatory disease) Surgical History Past Surgical History: Procedure Laterality Date CHOLECYSTECTOMY MULTIPLE TOOTH EXTRACTIONS TUBAL LIGATION Family History Family History Problem Relation Age of Onset Stroke Mother Ovarian cancer Mother Thyroid Disease Mother Mental illness Mother Diabetes Father Hypertension Father Diabetes Maternal Grandmother Diabetes Maternal Grandfather Stroke Maternal Grandfather Social History Social History Socioeconomic History Marital status: Single Tobacco Use Smoking status: Every Day Current packs/day: 1.00 Types: Cigarettes Substance and Sexual Activity Alcohol use: No Drug use: No Types: Marijuana Comment: former Sexual activity: Yes Partners: Male Social Determinants of Health Food Insecurities Transportation Interpersonal Safety Housing/Utilities Medications Prior to Admission medications Not on File I have reviewed the pertinent past medical history, past surgical history, social history, family history, current medications and allergies. Physical Exam: Vitals: 09/25/232149 BP: 150/69 Pulse: 75 Resp: 18 Temp: 98.2 F (36.8 C) SpO2: 98% Physical Exam Constitutional: General: She is not in acute distress. Appearance: Normal appearance. HENT: Head: Normocephalic and atraumatic. Right Ear: External ear normal. Left Ear: External ear normal. Nose: Nose normal. Mouth/Throat: Mouth: Mucous membranes are moist. Eyes: Extraocular Movements: Extraocular movements intact. Conjunctiva/sclera: Conjunctivae normal. Pupils: Pupils are equal, round, and reactive to light. Cardiovascular: Rate and Rhythm: Normal rate and regular rhythm. Pulses: Normal pulses. Heart sounds: Normal heart sounds. No murmur heard. No friction rub. No gallop. Pulmonary: Effort: Pulmonary effort is normal. No respiratory distress. Breath sounds: Normal breath sounds. No wheezing or rhonchi. Abdominal: General: Abdomen is flat. There is no distension. Palpations: Abdomen is soft. Tenderness: There is no abdominal tenderness. There is no right CVA tenderness, left CVA tenderness, guarding or rebound. Musculoskeletal: General: No deformity. Normal range of motion. Cervical back: Normal range of motion. Skin: General: Skin is warm and dry. Findings: No rash. Neurological: General: No focal deficit present. Mental Status: She is alert and oriented to person, place, and time. Sensory: No sensory deficit. Motor: No weakness. Psychiatric: Mood and Affect: Mood normal. Behavior: Behavior normal. Labs Recent Results (from the past 24 hour(s)) BAMP (Na,K,Cl,CO2,Glu,BUN,Cre at,Ca) Collection Time: 09/25/23 10:29 PM Result Value Ref Range BLD UREA NITROGEN 13 8 - 26 mg/dL SODIUM 139 135 - 145 mEq/L POTASSIUM 3.7 3.6 - 5.1 mEq/L CHLORIDE 104 98 - 111 mEq/L CO2 26 21 - 31 mmol/L GLUCOSE, RANDOM 97 70 - 99 mg/dL CREATININE 0.74 0.60 - 1.20 mg/dL ANION GAP 9 4 - 16 mmol/L CALCIUM 9.0 8.5 - 10.4 mg/dL ESTIMATED GFR 100 >59 mL/min/1.73 m2 CBC w diff Collection Time: 09/25/23 10:29 PM Result Value Ref Range WBC 5.6 3.6 - 10.5 THOU/mcL RBC 4.44 3.80 - 5.20 MIL/mcL HEMOGLOBIN 13.1 12.0 - 15.2 g/dL HEMATOCRIT 39.1 36 - 46 % MCV 88.1 82 - 97 fL MCH 29.5 27 - 33 pg MCHC 33.4 32 - 36 g/dL RDW (more content not included)... Normal [facility] HCG,POC URINEon 09-25-2023 Beta HCG ( test) Ql (U) Negative Normal NEGATIVE [facility] Comment on above: Performed By: #### P HCG #### Eva Fernández ([id number]) [facility] [address] [place] [address] HEPATIC FUNC PANELon 024 Albumin [Mass/Vol] 3.7 g/dL Normal 3.5-5.7 [facility] Comment on above: Performed By: #### L IVER #### Eva Fernández ([id number]) [facility] [address] [place] [address] ALP [Catalytic activity/Vol] 65 U/L Normal 35-135 [facility] Comment on above: Performed By: #### L IVER #### Eva Fernández ([id number]) [facility] [address] [place] [address] ALT [Catalytic activity/Vol] 10 U/L Normal 10-60 [facility] Comment on above: Performed By: #### L IVER #### Eva Fernández ([id number]) [facility] [address] [place] [address] AST [Catalytic activity/Vol] 13 U/L Normal 10-40 [facility] Comment on above: Performed By: #### L IVER #### Eva Fernández ([id number]) [facility] [address] [place] [address] Bilirubin [Mass/Vol] 0.3 mg/dL Normal 0.0-1.2 [facility] Comment on above: Performed By: #### L IVER #### Eva Fernández ([id number]) [facility] [address] [place] [address] Bilirubin.direct [Mass/Vol] 0.1 mg/dL Normal 0.0-0.2 [facility] Comment on above: Result Comment: Test ed at [facility] [address] [place] [address] Performed By: #### L IVER #### Eva Fernández ([id number]) [facility] [address] [place] [address] Protein [Mass/Vol] 7.0 g/dL Normal 6.0-8.0 [facility] Comment on above: Performed By: #### L IVER #### Eva Fernández ([id number]) [facility] [address] [place] [address] LIPASEon 09-25-2023 Lipase [Catalytic activity/Vol] 51 U/L Normal 11-82 [facility] Comment on above: Result Comment: Test ed at [facility] [address] [place] [address] Performed By: #### L IPA #### Eva Fernández ([id number]) [facility] [address] [place] [address] UAS REFLEXon 09-25-2023 Appearance (U) Clear Normal Clear [facility] Comment on above: Performed By: #### U ASR #### Eva Fernández ([id number]) [facility] [address] [place] [address] BACTERIA SEE NOTES Abnormal NONE [facility] Comment on above: Result Comment: FEW Performed By: #### U ASR #### Eva Fernández ([id number]) [facility] [address] [place] [address] BILIRUBIN,URINE Negative Normal NEGATIVE [facility] Comment on above: Performed By: #### U ASR #### Eva Fernández ([id number]) [facility] [address] [place] [address] BLOOD, URINE Negative Normal NEGATIVE [facility] Comment on above: Performed By: #### U ASR #### Eva Fernández ([id number]) [facility] [address] [place] [address] Color (U) Yellow Normal Yellow [facility] Comment on above: Result Comment: Ligh t Yellow Performed By: #### U ASR #### Eva Fernández ([id number]) [facility] [address] [place] [address] Glucose Ql (U) Negative Normal NEGATIVE [facility] Comment on above: Performed By: #### U ASR #### Eva Fernández ([id number]) [facility] [address] [place] [address] Ketones Ql (U) Negative Normal NEGATIVE [facility] Comment on above: Performed By: #### U ASR #### Eva Fernández ([id number]) [facility] [address] [place] [address] Leukocyte esterase Test strip Ql (U) 4+ (500 Ena/uL) Abnormal NEGATIVE [facility] Comment on above: Performed By: #### U ASR #### Eva Fernández ([id number]) [facility] [address] [place] [address] Mucus Ql (Urine sed) PRESENT Normal [facility] Comment on above: Result Comment: Test ed at [facility] [address] [facility] [address] Performed By: #### U ASR #### Eva Fernández ([id number]) [facility] [address] [place] [address] Nitrite Ql (U) Negative Normal NEGATIVE [facility] Comment on above: Performed By: #### U ASR #### Eva Fernández ([id number]) [facility] [address] [place] [address] pH (U) 6.0 [pH] Normal 5.0-8.0 [facility] Comment on above: Performed By: #### U ASR #### Eva Fernández ([id number]) [facility] [address] [place] [address] PROTEIN URIN Trace (10-20 mg/dL) Abnormal NEGATIVE [facility] Comment on above: Performed By: #### U ASR #### Eva Fernández ([id number]) [facility] [address] [place] [address] RBC (U) [#/Vol] /uL Normal <6 [facility] Comment on above: Result Comment: 3 to 5 Performed By: #### U ASR #### Eva Fernández ([id number]) [facility] [address] [place] [address] SPEC.GRAVITY,URINE 1.021 Normal 1.005-1.029 [facility] Comment on above: Performed By: #### U ASR #### Eva Fernández ([id number]) [facility] [address] [place] [address] SQUAMOUS EPI CELLS 6 to 10 Normal [facility] Comment on above: Performed By: #### U ASR #### Eva Fernández ([id number]) [facility] [address] [place] [address] UROBILINOGEN 1+ (2-3 mg/dL) Abnormal NORMAL [facility] Comment on above: Performed By: #### U ASR #### gayla Cortezew ([id number]) [facility] [address] [place] [address] WBC 11 to 20 Abnormal <6 [facility] Comment on above: Performed By: #### U ASR #### gayla Pradeep ([id number]) [facility] [address] [place] [address] SPECIMEN SOURCE Urine, Clean Catch Normal B [facility] Comment on above: Performed By: #### U ASR #### gayla Pradeep ([id number]) [facility] [address] [place] [address] URINE TYPE Urine Normal [facility] Comment on above: Performed By: #### U ASR #### Yunisummer Pradeep ([id number]) [facility] [address] [place] [address] CBC W Auto Differential pane l (Bld)on 10-09-2022 Basophils (Bld) [#/Vol] 0.1 10*3/uL 0.0 - 0.2 K/uL [employer] [facility] Basophils/100 WBC (Bld) 0.8 % [facility] Eosinophils (Bld) [#/Vol] 0.0 10*3/uL 0.0 - 0.6 K/uL [facility] Eosinophils/100 WBC (Bld) 0.3 % [facility] Erythrocyte distribution width (RBC) [Entitic vol] 13.7 % 12.4 - 15.4 % [facility] Hematocrit (Bld) [Volume fraction] 41.1 % 36.0 - 48.0 % [facility] Hemoglobin (Bld) [Mass/Vol] 13.6 g/dL 12.0 - 16.0 g/dL [facility] Lymphocytes (Bld) [#/Vol] 1.3 10*3/uL 1.0 - 5.1 K/uL [facility] Lymphocytes/100 WBC (Bld) 14.4 % [facility] MCH (RBC) [Entitic mass] 29.7 pg 26.0 - 34.0 pg [facility] MCHC (RBC) [Mass/Vol] 33.0 g/dL 31.0 - 36.0 g/dL [facility] MCV (RBC) [Entitic vol] 89.8 fL 80.0 - 100.0 fL [facility] Monocytes (Bld) [#/Vol] 0.8 10*3/uL 0.0 - 1.3 K/uL [facility] Monocytes/100 WBC (Bld) 9.3 % [facility] Neutrophils (Bld) [#/Vol] 6.8 10*3/uL 1.7 - 7.7 K/uL [facility] Neutrophils/100 WBC (Bld) 75.2 % [facility] Platelet mean volume (Bld) [Entitic vol] 7.7 fL 5.0 - 10.5 fL [facility] Platelets (Bld) [#/Vol] 238 10*3/uL 135 - 450 K/uL [facility] RBC (Bld) [#/Vol] 4.57 10*6/uL [facility] WBC (Bld) [#/Vol] 9.0 10*3/uL 4.0 - 11.0 K/uL [facility] Comprehensive metabolic 2000 panelon 10-09-2022 Albumin [Mass/Vol] 3.7 g/dL 3.4 - 5.0 g/dL [facility] Albumin/Globulin [Mass ratio] 0.9 {ratio} Low 1.1 - 2.2 [facility] ALP [Catalytic activity/Vol] 66 U/L 40 - 129 U/L [facility] ALT [Catalytic activity/Vol] 8 U/L Low 10 - 40 U/L [facility] Anion gap [Moles/Vol] 8 mmol/L 3 - 16 [facility] AST [Catalytic activity/Vol] 15 U/L 15 - 37 U/L [facility] Bilirubin [Mass/Vol] 0.4 mg/dL 0.0 - 1 .0 mg/dL [facility] Calcium [Mass/Vol] 9.6 mg/dL 8.3 - 10. 6 mg/dL [facility] Chloride [Moles/Vol] 103 mmol/L 99 - 11 0 mmol/L [facility] CO2 [Moles/Vol] 26 mmol/L 21 - 32 mmol/L [facility] Creatinine [Mass/Vol] 0.7 mg/dL 0.6 - 1.1 mg/dL [facility] GFR/1.73 sq M.predicted CKD-EPI (S/P/Bld) [Vol rate/Area] 60 - PINF [facility] Comment on above: Pediatric calculator link https://www.kidney.org/professionals/kdoqi/gfr_calculatorped Effective Jan 01, 2022 These results are not intended for use in patients <18 years of age. eGFR results are calculated without a race factor using the 2020 CKD-EPI equation. Careful clinical correlation is recommended, particularly when comparing to results calculated using previous equations. The CKD-EPI equation is less accurate in patients with extremes of muscle mass, extra-renal metabolism of creatinine, excessive creatinine ingestion, or following therapy that affects renal tubular secretion. Glucose [Mass/Vol] 91 mg/dL 70 - 99 mg/dL [facility] Interpretation and review of laboratory results Abnormal [facility] Potassium [Moles/Vol] 4.1 mmol/L 3.5 - 5.1 mmol/L [facility] Protein [Mass/Vol] 7.6 g/dL 6.4 - 8.2 g/dL [facility] Sodium [Moles/Vol] 137 mmol/L 136 - 145 mmol/L [facility] Urea nitrogen [Mass/Vol] 10 mg/dL 7 - 20 mg/dL [facility] HCG ( test) Qlon [facility] HCG Qualitative, Serumon HCG ( test) Ql Negative Detects HCG level >10 MIU/mL [facility] No Panel Informationon 10-09 [facility] Troponinon 10-09-2022 Troponin, High Sensitivity 8 ng/L 0 - 14 ng/L [facility] Comment on above: The high-sensitivity troponin T result should not be compared with other troponin methodologies. [facility] Troponin, High Sensitivity 8 ng/L 0 - 14 ng/L [facility] Comment on above: The high-sensitivity troponin T result should not be compared with other troponin methodologies. XR CHEST PORTABLEon 10-10-19 No definite portable radiographic evidence of acute cardiopulmonary disease when patient rotation to the right, patient body habitus and low lung volumes taken a consideration. [facility] EXAMINATION: ONE XRAY VIEW OF THE CHEST 10/09/2022 12:20 pm COMPARISON: Two-view chest 12/22/2017 HISTORY: ORDERING SYSTEM PROVIDED HISTORY: chest pain TECHNOLOGIST PROVIDED HISTORY: Reason for exam:->chest pain Reason for Exam: chest pain FINDINGS: Study degraded by patient rotation to the right. No acute pulmonary consolidation, airspace infiltrate, detectable pleural effusion, pneumothorax, pulmonary edema, cardiomegaly or mediastinal widening when patient positioning taken a consideration [facility] Bucky Barrios D O - 10/09/2022 EXAMINATION: ONE XRAY VIEW OF THE CHEST 10/09/2022 12:20 pm COMPARISON: Two-view chest 12/22/2017 HISTORY: ORDERING SYSTEM PROVIDED HISTORY: chest pain TECHNOLOGIST PROVIDED HISTORY: Reason for exam:->chest pain Reason for Exam: chest pain FINDINGS: Study degraded by patient rotation to the right. No acute pulmonary consolidation, airspace infiltrate, detectable pleural effusion, pneumothorax, pulmonary edema, cardiomegaly or mediastinal widening when patient positioning taken a consideration IMPRESSION: No definite portable radiographic evidence of acute cardiopulmonary disease when patient rotation to the right, patient body habitus and low lung volumes taken a consideration. [facility] Radiology Study observation (narrative) [facility] XR CHEST PORTABLEOrdered By: Bucky Barrios on 10-09-2022 [facility] Work Phone: FOLATESon 03-17-2020 FOLATES 15.3 ng/mL Normal >5.21 [facility] Comment on above: Performed By: #### L [id number] #### [facility] [address] [place] [address] PREG TEST, UA QUALon 020 TEST,UR QL Negative Normal NEGATIVE [facility] Comment on above: Performed By: #### L [id number] #### [facility] [address] [place] [address] SARS CoV-2, OL, PCR RAPIDon 03-17-2020 SARS CoV-2, OL, PCR RAPID Undetected Normal Undetected [facility] Comment on above: Order Comment: Sympt omatic?->No Indications (select all that apply)->Admission Result Comment: Testing was performed using the Quidel Aminata Direct. Fact sheets for this Emergency Use Authorization (EUA) assay can be found at the following links: For Healthcare Providers: https://www.fda.gov/media/755757/download For Patients: https://www.fda.gov/media/525772/download Test Performed by: [facility],[address] [place] [address], [employer]cher [employer]: Umu Cuello MD; CLIA#: [id number] Performed By: #### L QY5382 #### [place] [address] SARS CoV-2, OL, PCR RAPID Undetected Normal Undetected [facility] Comment on above: Order Comment: Sympt omatic?->No Indications (select all that apply)->Behavioral Med Result Comment: Testing was performed using the Quidel Aminata Direct. Fact sheets for this Emergency Use Authorization (EUA) assay can be found at the following links: For Healthcare Providers: https://www.fda.gov/media/607391/download For Patients: https://www.fda.gov/media/524102/download Test Performed by: [facility],[address] [place] [address], [employer]: Umu Cuello MD; CLIA#: [id number] Performed By: #### L [id number] #### [place] [address] SARS-CoV-2 Ag, QL (SWAB)on 1 05-18-2019 SARS-CoV-2 Ag, QL (SWAB) Negative Normal Undetected [facility] Comment on above: Order Comment: Sympt omatic?->No Indications (select all that apply)->Behavioral Med Performed By: #### L [id number] #### [address] [place] [address] TOX SCREEN, RAPID, URon 12- AMPHETAMINES, UR Negative Normal Cutoff: 1000 [facility] Comment on above: Performed By: #### L PV3414 #### [facility] [address] [place] [address] BARBITURATES, UR Negative Normal Cutoff: 200 [facility] Comment on above: Performed By: #### L QW6659 #### [facility] [address] [place] [address] BENZODIAZEPINES, UR Negative Normal Cutoff: 200 [facility] Comment on above: Performed By: #### L YA0904 #### [place] [address] BUPRENORPHINE, UR Negative Normal Cutoff: 5 [facility] Comment on above: Result Comment: Note , cutoff changed from 10 to 5 ng/mL 02/13/18. Performed By: #### L CD0967 #### [place] [address] CANNABINOID, UR Negative Normal Cutoff: 50 [facility] Comment on above: Performed By: #### L GD3928 #### [place] [address] COCAINE, UR Negative Normal Cutoff: 300 [facility] Comment on above: Performed By: #### L OD8600 #### [place] [address] FENTANYL, UR Negative Normal Cutoff: 200 [facility] Comment on above: Performed By: #### L OP5100 #### [place] [address] METHADONE, UR Negative Normal Cutoff: 300 [facility] Comment on above: Performed By: #### L OU6349 #### [place] [address] OPIATES, UR Negative Normal Cutoff: 300 [facility] Comment on above: Performed By: #### L JD8210 #### [place] [address] OXYCODONE, UR Negative Normal Cutoff: 300 [facility] Comment on above: Performed By: #### L PF8397 #### [facility] [address] [place] [address] PHENCYCLIDINE, UR Negative Normal Cutoff: 25 [facility] Comment on above: Performed By: #### L GH1870 #### JES[place]A [facility] [address] [place] [address] PROPOXYPHENE, UR Negative Normal Cutoff: 300 [facility] Comment on above: Result Comment: IM PORTANT This is a screening method. The test results are to be used for medical purposes only. Many common compounds can cause false positive results. Confirmation of a positive result is available upon request. Performed By: #### L YG4387 #### [place] [address] TRICYCLICS, UR Negative Normal Cutoff: 300 [facility] Comment on above: Performed By: #### L KV3918 #### [place] [address] TSHon 03-17-2020 TSH Qn 2.91 u[iU]/mL Normal 0.30-5.60 [facility] Comment on above: Performed By: #### L AB9535 #### [place] [address] URINALYSISon 03-17-2020 Protein (U) [Mass/Vol] Trace Abnormal NEGATIVE [facility] Comment on above: Performed By: #### L JP6426 #### [place] [address] RBC (U) [#/Vol] 4 - 5 Normal 1-3 [facility] Comment on above: Performed By: #### L IS1213 #### [place] [address] UR BACTERIA None Seen Normal NONE SEEN [facility] Comment on above: Performed By: #### L LA0548 #### [place] [address] UR BILIRUBIN Negative Normal NEGATIVE [facility] Comment on above: Performed By: #### L CZ0899 #### [facility] [address] [place] [address] UR BLOOD 3 + mg/dL Abnormal NEGATIVE [facility] Comment on above: Performed By: #### L TK1539 #### [facility] [address] [place] [address] UR CLARITY Clear Normal CLEAR [facility] Comment on above: Performed By: #### L BB5849 #### [facility] [address] [place] [address] UR COLOR Yellow Normal YELLOW [facility] Comment on above: Performed By: #### L NH7325 #### [facility] [address] [place] [address] UR GLUCOSE Normal Normal NEGATIVE [facility] Comment on above: Performed By: #### L TQ1231 #### [facility] [address] [place] [address] UR KETONE Negative Normal NEGATIVE [facility] Comment on above: Performed By: #### L VO1866 #### [facility] [address] [place] [address] UR LEUKOCYTE Trace Abnormal NEGATIVE [facility] Comment on above: Performed By: #### L ZQ8451 #### [facility] [address] [place] [address] UR MUCOUS Rare Normal NONE SEEN [facility] Comment on above: Performed By: #### L FZ3517 #### [facility] [address] [place] [address] UR NITRITE Negative Normal NEGATIVE [facility] Comment on above: Performed By: #### L SC5252 #### [facility] [address] [place] [address] UR PH 5.5 Normal 5.0-9.0 [facility] Comment on above: Performed By: #### L MM9890 #### [facility] [address] [place] [address] UR SP GRAVITY 1.027 Normal 1.005-1.030 [facility] Comment on above: Performed By: #### L UL6686 #### [facility] [address] [place] [address] UR SQUAMOUS EPI 1 - 3 Normal 3-5 [facility] Comment on above: Performed By: #### L FC6745 #### [facility] [address] [place] [address] UR UROBILINOGEN Normal Normal <2.0 [facility] Comment on above: Performed By: #### L VO1084 #### [facility] [address] [place] [address] UR WBC 11 - 20 Abnormal 1-3 [facility] Comment on above: Performed By: #### L IG4722 #### [facility] [address] [place] [address] VITAMIN B12on 03-17-2020 Cobalamin (Vitamin B12) [Mass/Vol] 262 pg/mL Normal 180-914 [facility] Comment on above: Performed By: #### L SO4780 #### [place] [address] ACETAMINOPHENon 03-16-2020 Acetaminophen [Mass/Vol] < 10.0 Normal [facility] Comment on above: Result Comment: THERAPEUTIC RANGE 10 TO 30 UG/ML TOXIC RANGE 4 HOURS POST-INGESTION >150 UG/ML 8 HOURS POST-INGESTION >75 UG/ML 12 HOURS POST-INGESTION >40 UG/ML Performed By: #### L IY0033, WRU3575, NVQ0710, WKL9095, XHC4268 #### [place] [address] CBCon 03-16-2020 Basophil Abs. 0.0 10*3/uL Normal 0.0-0.1 [facility] Comment on above: Performed By: #### L ZK9073, XGQ0579, ZOO9575, GFL2198, WAY7772 #### [place] [address] Basophils/100 WBC (Bld) 0.6 % Normal 0.0-1.0 [facility] Comment on above: Performed By: #### L VS0727, KPA4502, HWR3136, MOF7026, DRI1802 #### [address] [place] [address] Differential type Auto Normal [facility] Comment on above: Performed By: #### L HB3381, RYH6881, FHY6943, JRK2390, GVU3227 #### [facility] [address] [place] [address] Eosinophils (Bld) [#/Vol] 0.1 10*3/uL Normal 0.0-0.5 [facility] Comment on above: Performed By: #### L SD0359, NBB0196, GQU8437, TWQ0420, JBN8297 #### [address] [address] Eosinophils/100 WBC (Bld) 1.0 % Normal 0.3-5.0 [facility] Comment on above: Performed By: #### L EA4426, WCH4391, TCD0343, SRG0360, GYU5108 #### [place] [address] Erythrocyte distribution width (RBC) [Ratio] 14.9 % High 11.5-13.1 [facility] Comment on above: Performed By: #### L AE7860, JNJ1280, FXL4857, JJG8389, SGI0251 #### [place] [address] Hematocrit (Bld) [Volume fraction] 38.2 % Normal 33.0-51.0 [facility] Comment on above: Performed By: #### L XL9022, SQH4190, TEC8588, KJG5046, LTC3832 #### [place] [address] Hemoglobin (Bld) [Mass/Vol] 12.8 g/dL Normal 12.0-16.0 [facility] Comment on above: Performed By: #### L CD0259, FUT0534, RDH1478, ENN1669, MRA6030 #### [place] [address] Lymphocytes (Bld) [#/Vol] 2.6 10*3/uL Normal 1.1-5.0 [facility] Comment on above: Performed By: #### L FE5790, TWI5735, KTP8663, WCP5147, IBA3021 #### [place] [address] Lymphocytes/100 WBC (Bld) 33.7 % Normal 24.0-44.0 [facility] Comment on above: Performed By: #### L MB2361, XQV6531, XXY8082, OQB6038, KZK8985 #### [place] [address] MCH (RBC) [Entitic mass] 28.9 pg Normal 26.0-34.0 [facility] Comment on above: Performed By: #### L ET4112, CED6194, WUX3414, UBF3990, CFY8784 #### [place] [address] MCHC (RBC) [Mass/Vol] 33.6 g/dL Normal 32.0-36.0 [facility] Comment on above: Performed By: #### L PS7664, FKJ6731, HUV5997, CUY4227, SZF6207 #### [place] [address] MCV (RBC) [Entitic vol] 85.8 fL Normal 80.0-100.0 [facility] Comment on above: Performed By: #### L CI7640, CLY5300, RSC2499, WZX0448, POZ8040 #### [place] [address] Monocytes (Bld) [#/Vol] 0.7 10*3/uL Normal 0.0-1.4 [facility] Comment on above: Performed By: #### L JE9627, KRI5855, TGO7032, JZE3182, CPU0239 #### [place] [address] Monocytes/100 WBC (Bld) 8.9 % Normal 2.1-13.3 [facility] Comment on above: Performed By: #### L KA8479, ADI0200, IWC7767, ENI5055, VPA8016 #### [place] [address] Neutrophils, Abs. 4.2 10*3/uL Normal 1.5-8.5 [facility] Comment on above: Performed By: #### L YC4470, SLR1850, EYU3500, CRJ5694, CIQ1645 #### [place] [address] Neutrophils/100 WBC (Bld) 55.7 % Normal 35.0-66.0 [facility] Comment on above: Performed By: #### L AA9470, EQK0387, CXJ4654, CVN9698, RQO1178 #### [place] [address] Platelet Cnt 318 10*3/uL Normal 150-450 [facility] Comment on above: Performed By: #### L PR8736, ZZY3233, ZOX0111, TKS4814, ZED6004 #### [place] [address] Platelet mean volume (Bld) [Entitic vol] 7.5 fL Normal 6.5-10.0 [facility] Comment on above: Performed By: #### L YI7391, FHC5120, GMM0377, XHS8361, LIX8344 #### [place] [address] RBC (Bld) [#/Vol] 4.45 10*6/uL Normal 4.00-5.20 [facility] Comment on above: Performed By: #### L JO2369, RKZ1308, CZG3042, RMJ6464, KOK5410 #### [place] [address] WBC (Bld) [#/Vol] 7.6 10*3/uL Normal 4.5-11.0 [facility] Comment on above: Performed By: #### L OE3595, HYU0539, HFC2231, BSV2648, FII6746 #### [place] [address] COMPREHENSIVE METABOLIC PANE Mark 03-16-2020 Albumin [Mass/Vol] 4.1 g/dL Normal 3.2-5.0 [facility] Comment on above: Performed By: #### L QA2136, HJQ8652, SYD4327, SBK1922, KDN1734 #### [place] [address] Albumin/Globulin [Mass ratio] 1.2 {ratio} Normal [facility] Comment on above: Performed By: #### L MB9760, WKZ1381, WNQ8056, UGD3392, FND3384 #### [place] [address] ALP [Catalytic activity/Vol] 69 [iU]/L Normal 42-121 [facility] Comment on above: Performed By: #### L UA2151, MTR5838, WER9695, SNN1371, VEB6647 #### [place] [address] ALT [Catalytic activity/Vol] 14 [iU]/L Normal 10-60 [facility] Comment on above: Performed By: #### L NM9723, ZDW9376, KOK4869, HYX9913, JPK1419 #### [place] [address] Anion gap [Moles/Vol] 8 mmol/L Normal [facility] Comment on above: Performed By: #### L TF8709, CFV1689, RLT2940, VCH8091, EDP0670 #### [place] [address] AST [Catalytic activity/Vol] 16 [iU]/L Normal 10-42 [facility] Comment on above: Performed By: #### L EA7510, AOE9565, AVX8575, RBM5468, FJL6013 #### [place] [address] B/C 21 High 10-20 [facility] Comment on above: Performed By: #### L FY1400, QHD8397, TOI9417, ADS0165, MHE1556 #### [facility] [address] [place] [address] Bilirubin.direct [Mass/Vol] 0.2 mg/dL Normal 0.2-1.0 [facility] Comment on above: Performed By: #### L SY7788, OFJ9011, LOJ1376, WBY1845, LIJ8502 #### [facility] [address] [place] [address] Calcium [Mass/Vol] 9.1 mg/dL Normal 8.5-10.5 [facility] Comment on above: Performed By: #### L RZ1235, GQI2302, ORN2510, ESS6924, SYX1374 #### [facility] [address] [place] [address] Chloride [Moles/Vol] 102 mmol/L Normal 101-111 [facility] Comment on above: Performed By: #### L UB3009, TQU6015, TKD5693, REN4426, LZH4671 #### [place] [address] CO2 [Moles/Vol] 26 mmol/L Normal 21-31 [facility] Comment on above: Performed By: #### L DM8364, XCD4578, MVF9457, YIR5669, DPB1329 #### [facility] [address] [place] [address] Creatinine [Mass/Vol] 0.8 mg/dL Normal 0.4-1.0 [facility] Comment on above: Performed By: #### L PZ5035, CKP0730, BAU5221, VZL2442, OKW3346 #### [address] [address] GFR/1.73 sq M.predicted MDRD (S/P/Bld) [Vol rate/Area] 78 mL/min/{1.73_m2} Normal [facility] Comment on above: Result Comment: *The estimated Glomerular Filtration Rate(EGFR) may not be accurate for children under the age of 18 yrs. To estimate the GFR for -Americans multiply the result provided by 1.21. Stage 1 90 mL/min or greater Stage 2 60-89 mL/min Stage 3 30-59 mL/min Stage 4 15-29 mL/min Stage 5 14 mL/min or less Performed By: #### L AK0918, RQD0620,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 Note Date & Type Note Facility Evaluation note Diagnosis Acute strain of neck muscle, initial encounter- Primary Other acute back pain Acute non intractable tension-type headache documented in this encounter [facility] Evaluation note Note Date & Type Note Facility Evaluation note No assessment information availa ble [facility] Work Phone: Hospital Discharge instructions Attachments Note Date & Type Note Facility Hospital Discharge instructions The following attachments cannot be sent through Care Everywhere.Chest Pain (Greek)Blood Pressure: Elevated (Greek)documented in this encounter [facility] Reason for referral (narrative) Note Date & Type Note Facility Reason for referral (narrative) No reason for referral information available [facility] Work Phone: Summary Purpose Family History No Family History Records Found Relationship Condition Age at Onset Recorded Date/T vida brother Alcoholism Unknown mother Anemia affecting fifth Unknown Anemia Unknown Anxiety Unknown Asthma Unknown Arthritis Unknown Disorder of intestine Unknown Malignant neoplasm Unknown Depression Unknown Diabetes mellitus Unknown Cardiac disease Unknown Hypertension Unknown High blood cholesterol Unknown Kidney disorder Unknown Disorder of liver Unknown Mental disorder Unknown Osteoporosis Unknown Malignant neoplasm of ovary Unknown Disorder of respiratory system Unknown Cerebrovascular accident (CVA) Unknown Attempted suicide Unknown Disorder of thyroid Unknown Chronic obstructive pulmonary disease Unk nown father Arthritis Unknown Myocardial infarction Unknown Advance Directives No Advanced Directives Records FoundLatest Code Status on File Code Status Date Activated Date Inactivated Comments Full Code 04/02/2018 6:15 PM 04/09/2018 5:08 PM Code Status History Code Status Date Activated Date Inactivated Comments Full Code 11/13/2017 2:10 AM 11/21/2017 2:42 PM Full Code 11/18/2012 2:04 AM 12/01/2012 4:59 PM Chief Complaint and Reason for Visit Chief Complaint Admit Date CONSTIPATION October 06, 2024 9:32a m Reason for Visit Admit Date Abdominal pain October 06, 2024 9:32a m Constipation October 06, 2024 9:32a m Nausea October 06, 2024 9:32a m Additional Source Comments INFORMATION SOURCE (unrecogn ized section and content) DATE CREATED AUTHOR 09/16/2017 [facility] DATE CREATED AUTHOR AUTHOR'S ORGANIZ ATION 03/18/2020 [facility] DATE CREATED AUTHOR AUTHOR'S ORGANIZ ATION 11/11/2023 [facility] DATE CREATED AUTHOR AUTHOR'S ORGANIZ ATION 04/21/2024 [facility] DATE CREATED AUTHOR AUTHOR'S ORGANIZ ATION 11/19/2024 [facility] Reason for Visit (unrecogniz ed section and content) Reason Comments Chest Pain Started at 3am this morning woke her up, hurts in middle of chest and down left arm. Hx anxiety, denies cards hx, also relapsed on cocaine a week ago. Reason Comments Back Pain Pulled muscle in nec k and back,MCKEON Sx started yesterday Scheduled Active and Recently Administ ered Medications (unrecognized section and content) Medication Order 10/07/2022 10/08/2022 10/09/2022 aspirin tablet 325 mg (COMPLETED) 325 mg, Oral, ONCE, 1 dose, On Sat10/09/22 at 1230 1229 (Given - Provid er: Nevaeh Suggs RN) ketorolac (TORADOL) injection 15 mg (COMPLETED) 15 mg, IntraVENous, ONCE, 1 dose, On Sat10/09/22 at 1345, Do not administer for more than 5 days. 1356 (Given - Provid er: Ele Newton RN) morphine sulfate (PF) injection 4 mg (COMPLETED) 4 mg, IntraVENous, ONCE, 1 dose, On Sat10/09/22 at 1230, If oral and IV narcotics ordered, use oral first and only use IV if oral is ineffective or cannot take oral. Do Not give oral and IV within 1 hour of each other unless specifically ordered. 1233 (Given - Provid er: Nevaeh Suggs RN) ondansetron (ZOFRAN) injection 4 mg (COMPLETED) 4 mg, IntraVENous, ONCE, 1 dose, On Sat10/09/22 at 1230 1233 (Given - Provid er: Nevaeh Suggs RN) Care Teams (unrecognized sec tion and content) Tape Weaver Relationship Specialty Start Date End Date Orly Pillai APRN - [employer] PCP - General Nurse Practitioner 04/03/18 Tape Weaver Relationship Specialty Start Date End Date Carlos García, [employer]ORER [address] [facility] [place] [address] PCP - General Nurse Practitioner 01/10/22 Team Status: Active Member Role/Relationship Status Dates LOLA Turner Primary Care Provider Active Team Status: Active Member Role/Relationship Status Dates LOLA Turner Primary Care Provider Active Start: October 06, 2024 Kayla Tannhof , AML ANALYST-C Attending Provider Active Start: October 06, 2024 Kayla Tannhof , AML ANALYST-C Referring Provider Active Start: October 06, 2024 Team Status: Inactive Member Role/Relationship Status Dates Candis Chase , AML ANALYST-C Attending Provider Active Start: October 06, 2024 End: October 06, 2024 Kayla Tannhof , AML ANALYST-C Primary Care Provider Active Start: October 06, 2024 End: October 06, 2024 Kayla Tannhof , AML ANALYST-C Referring Provider Active Start: October 06, 2024 End: October 06, 2024 Team Status: Inactive Member Role/Relationship Status Dates Kayla Tannhof , AML ANALYST-C Primary Care Provider Active Start: October 06, 2024 End: October 06, 2024 Kayla Tannhof , AML ANALYST-C Attending Provider Active Start: October 06, 2024 End: October 06, 2024 Kayla Tannhof , AML ANALYST-C Referring Provider Active Start: October 06, 2024 End: October 06, 2024 Team Status: Inactive Member Role/Relationship Status Dates Kayladallas Davishof , AML ANALYST-C Primary Care Provider Active Start: October 15, 2024 End: October 15, 2024 Kayla Tannhof , AML ANALYST-C Attending Provider Active Start: October 15, 2024 End: October 15, 2024 Source Comments (unrecognize d section and content) This information has been di sclosed to you from confidential records protectfrom disclosure by state law. You shall make no further disclosure of thisinformation without the specific, written, and informed release of theindividual to whom it pertains, or as otherwise permitted by law. A generalauthorization for the release of medical or other information is not sufficientfor the purposes of the release of HIV test results or diagnoses. [id number] Goals (unrecognized section and content) Goals may be documented in a n alternate sectionGoals may be documented in an alternate sectionGoals may be documented in an alternate section FOR RECORDS PERTAINING TO PATIENTS WHO ARE OR HAVE BEEN ENROLLED IN A CHEMICAL DEPENDENCY/SUBSTANCEABUSE PROGRAM, SOME INFORMATION MAY BE OMITTED. This clinical summary was aggregated from multiple sources. Caution should be exercised in using it in the provision of clinical care. This summary normalizes information from multiple sources, and as a consequence, information in this document may materially change the coding, format and clinical context of patient data. In addition, data may be omitted in some cases. CLINICAL DECISIONS SHOULD BE BASED ON THE PRIMARY CLINICAL RECORDS. [facility]. provides no warranty or guarantee of the accuracy or completeness of information in this document.
--- NOTE | 2024-11-21 11:33 | RAD_ITS ---
PROCEDURE: CERV SPINE 4 OR 5 VIEWS 11/21/2024 REASON FOR EXAM: CERVICAL RADICULOPATHY TECHNIQUE: CERV SPINE 4 OR 5 VIEWS FINDINGS: Vertebrae: Vertebral body heights are intact. disc spaces: Disc heights are fairly well-maintained. Alignment: Alignment is fairly well-maintained with some cervical spine lordosis present. soft tissues: No prevertebral soft tissue thickening Other: The right neural foramen are widely patent. There is questionable narrowing of the left C3-4 and C4-5 neural foramina from uncovertebral joint spurring and endplate spondylosis RAD/Cerv Spine 4 or 5 Views IMPRESSION: Possible neural foramen stenosis as detailed above Disclaimer: Reading [facility]
== END | disposition home or self-care (01) ==
LOC: RAD 11:29
PROVIDERS: PCP Nurse Practitioner Family; Referring Provider Chiropractor; Visit Provider Chiropractor
DX: M54.12 Radiculopathy, cervical region (principal)
CPT/HCPCS: 72050

== ENCOUNTER 2024-11-22 12:33 | Emergency (ER) | payer MEDICAID, SELFPAY ==
[2024-11-22 12:35] VITALS: BP 162/93; PULSE 82; RESP 16; TEMP 36.8; O2SAT 98; BMI 43.0
--- NOTE | 2024-11-22 12:51 | EX.ED.DYSGE1 ---
HPI History of Present Illness Chief Complaint: Lower Extremity Injury Narrative Narrative: Patient is a 40-year-old female with past medical anxiety, methamphetamine use, PTSD, hypokalemia who presented to the emergency department with a chief complaint of left knee pain. Patient states that about 3 weeks ago she was taken her daughter back home was sitting in the backseat of the car and noted that she attempted to move her knee. She states that at that point time she felt like it was twisting on itself. She states that since then she has had pain and notes that today she was going off a set of stairs from her neighbors house and when she stepped down she had extreme pain prompting her to come here for further evaluation management. States that she has been trying to ice use ibuprofen for pain however this is not helping therefore she came here. Patient states that she has had steroid injections in her knees in the past which seem to help her but her last one was about a year ago. Patient denies any fevers or chills [facility] Medical History Anxiety disorder Hallucinations Insomnia UTI (urinary tract infection) Back pain Abdominal pain Methamphetamine use Suicidal ideation RUQ pain PTSD (post-traumatic stress disorder) Medial meniscus tear Chondromalacia of knee Migraine with aura and without status migrainosus, not intractable Drug overdose, intentional Hypokalemia Home Medications ?Medication ?Instructions ?Recorded ?Last Taken ?Type all indigoer fizzy melts PO PRN 10/06/24 Unknown History hydrocortisone 2.5 % topical cream 1 applic NV QD-BID PRN rectal pain 10/06/24 Unknown Rx with perineal applicator and bleeding #30 grams lubiprostone 24 mcg capsule 24 mcg PO BID #60 caps 10/06/24 Unknown Rx (Amitiza) ondansetron HCl 4 mg tablet 4 mg PO Q4-6H PRN 10/06/24 Unknown History pantoprazole 40 mg tablet,delayed 40 mg PO QDAY #90 tabs 10/06/24 Unknown Rx release peg 3350-electrolytes 236 240 ml PO Q10M #4,000 mL 10/06/24 Unknown Rx gram-22.74 gram-6.74 gram-5.86 gram solution (Golytely) polyethylene glycol 3350 17 17 g PO Q10M #119 grams 10/06/24 Unknown Rx gram/dose oral powder (Miralax) ropinirole 2 mg tablet 2 mg PO QHS 10/06/24 Unknown History diclofenac sodium 1 % topical gel 2 g topical Q6H PRN PRN pain 11/22/24 Unknown Rx (Voltaren Arthritis Pain) (scale score 4-6) #50 grams Allergy/AdvReac Type Severity Reaction Status Date / Time erythromycin base (From Allergy Mild chest pain Verified 11/22/24 12:37 E-Mycin) and swelling hydroxyzine Allergy Mild elevates Verified 11/22/24 12:37 heart rate Family History Brother Alcoholism Mother Anemia affecting fifth Anemia Anxiety Asthma Arthritis Bowel disease Cancer cervical and lung Depression Diabetes Heart disease Hypertension High cholesterol Kidney disease Liver disease Mental disorder Osteoporosis Ovarian cancer Respiratory disease CVA (cerebral vascular accident) Suicide attempt Thyroid disorder COPD (chronic obstructive pulmonary disease) Father Arthritis Diabetes Myocardial infarction Hypertension Surgical History Hx of cholecystectomy H/O tubal ligation Social History Smoking Status: Unknown if ever smoked ROS ROS ED ROS Narrative Constitutional: Denies any fevers, chills Neurological: Denies any numbness, weakness, tingling Musculoskeletal: Complains of left knee pain as noted above Skin: Denies any rashes or lesions EXAM Physical Exam Narrative Exam Narrative: General: Patient is lying in bed did appear to be uncomfortable secondary to her knee pain she was tearful Head: Atraumatic, normocephalic Eyes: PERRL bilateral, EOMI bilateral, no conjunctival injection noted Neck: Soft, supple, trachea midline Cardiovascular: Regular rate and rhythm Respiratory: Clear to auscultation bilaterally Abdomen: Soft, nondistended, nontender to palpation Musculoskeletal: Patient has full range of motion of her left knee no evidence short arc syndrome no concern for septic joint Extremities: DP pulses +2/4 in the left lower extremity, +5/5 strength noted in the bilateral lower extremities Neurological: Patient following commands and that she was at [facility] the year is 2024 sensation grossly intact Skin: Warm, dry, intact no rashes or lesions noted no erythema of her knee no petechia no purpura noted Const Vital Signs: 11/22/24 12:35 Temperature 98.2 F Temperature Source Oral Pulse Rate 82 Respiratory Rate 16 Blood Pressure 162/93 H Blood Pressure Mean 116 Pulse Ox 98 Oxygen Delivery Method Room Air MDM MDM MDM Narrative Medical decision making narrative: Patient is a 48-year-old female who presents to the emergency department the chief complaint of left knee pain. On the differential diagnosis includes but limited to meniscal tear, ligamentous injury, osteoarthritis, septic joint although have low suspicion for this clinically. Once workup is obtained reviewed she will be reevaluated. Patient given Venetie and Zofran. Patient's x-ray of her left knee reviewed by myself by radiology showed no acute fractures or dislocations no joint effusion noted. Discussed results with the patient. She states that her last orthopedic surgeon is from [place] and we will refer her to today for steroid injections. She will also be given prescription for Voltaren gel. She is also advised to rotate Tylenol and ibuprofen [id number]. She advised return with worsening symptoms or concerns. She is agreeable this plan all question concerns answered she was discharged home in stable condition. Radiography Diagnostic Testing: Clinical Impression(s) from Imaging Studies Knee X-Ray 11/22/24 13:10 IMPRESSION: No acute osseous abnormalities. Reading Location: [facility] Discharge Plan Triage Chief Complaint: Lower Extremity Injury ED Provider: Tom Donald Dx/Rx/DC Orders Clinical Impression: Knee pain, left, Osteoarthritis, History of depression Prescriptions: New diclofenac sodium [Voltaren Arthritis Pain] 1 % gel 2 g topical Q6H PRN PRN (Reason: pain (scale score 4-6)) Qty: 50 0RF No Action ropinirole 2 mg tablet 2 mg PO QHS Rx Instructions: administer 1-3 hours before bedtime all jeb millery melts 200 mg PO PRN ondansetron HCl 4 mg tablet 4 mg PO Q4-6H PRN pantoprazole 40 mg tablet,delayed release (DR/EC) 40 mg PO QDAY Qty: 90 1RF Rx Instructions: take once daily 30 minutes before breakfast on an empty stomach lubiprostone [Amitiza] 24 mcg capsule 24 mcg PO BID Qty: 60 2RF Rx Instructions: twice a day with breakfast and dinner hydrocortisone 2.5 % cream with perineal applicator 1 applic NV QD-BID PRN (Reason: rectal pain and bleeding) Qty: 30 0RF peg 3350-electrolytes [Golytely] 236-22.74-6.74 -5.86 gram recon soln 240 ml PO Q10M Qty: 4000 0RF Rx Instructions: take as directed for split dose bowel prep polyethylene glycol 3350 [Miralax] 17 gram/dose powder 17 g PO Q10M Qty: 119 0RF Rx Instructions: as directed for split dose bowel prep Primary Care Provider: Kayla Diego Referrals: Kayla Diego NP-C [Primary Care Provider] - Parrish Bullock MD [Med Staff - Active Staff] - Activity Restrictions/Additional Instructions: Your x-ray did not show any acute findings here today. Rotate Tylenol and ibuprofen [id number] when you do this you can take something every 3 hours for pain. Max dose of Tylenol in 24 hours 4000 mg max dose of ibuprofen in 24 hours 3200 mg. Use the Voltaren gel that was sent to the pharmacy as prescribed. Follow-up with the orthopedic team they referred to. Return with worsening symptoms or any other concerns Print Language: Malaysian Disposition Disposition: Home, Self Care
--- OUTSIDE RECORDS SUMMARY | 2024-11-22 13:06 | XMS RPT_ITS | CCD ---
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 By: Kayla Diego 10-15-2024 ALT [Catalytic activity/Vol] 18 U/L <35 [facility] Serum or plasma albumin marilee urement (mass/volume)Ordered By: Kayla Diego 10-15-2024 Albumin [Mass/Vol] 3.8 g/dL 3.5-5.0 [facility] Serum or plasma albumin/glob ulin mass ratioOrdered By: Kayla Diego 10-15-2024 Albumin/Globulin [Mass ratio] 1.1 {ratio} 0.9-2.4 [facility] Serum or plasma alkaline emerson sphatase measurementOrdered By: Kayla Diego 10-15-2024 ALP [Catalytic activity/Vol] 77 U/L 35-104 [facility] Serum or plasma calcium marilee urement (mass/volume)Ordered By: Kayla Diego 10-15-2024 Calcium [Mass/Vol] 9.5 mg/dL 7.6-11.0 [facility] Serum or plasma urea nitroge n measurement (mass/volume)Ordered By: Kayla Diego on 10-15-2024 Urea nitrogen [Mass/Vol] 8 mg/dL 4-19 [facility] Sodium levelOrdered By: Amaris Diego on 10-15-2024 Sodium [Moles/Vol] 138 mmol/L 133-145 [facility] Squamous epithelial cells de tection in urine sediment by light microscopyOrdered By: Kayla Diego on 10-15-2024 Epithelial cells.squamous LM Ql (Urine sed) 0-5 SEEN /hpf - [facility] Total proteinOrdered By: Rey landy Johnathon on 10-15-2024 Protein [Mass/Vol] 7.3 g/dL 5.9-8.4 [facility] Urinalysis, Completeon 10-15 EPI,SQUAMOUS 0-5 SEEN Normal - [facility] Comment on above: Order Comment: CLEAN CATCH Performed By: #### L 7400.0280, L3410.9992, L400.0001, L100.0100, M100.2200, L503.7505, L500.4050 #### [facility] [address] [place], [address] WBC 0-5 SEEN Normal 0-5 [facility] Comment on above: Order Comment: CLEAN CATCH Performed By: #### L 7400.0280, L3410.9992, L400.0001, L100.0100, M100.2200, L503.7505, L500.4050 #### [facility] [address] [place], [address] BACTERIA 0 SEEN Normal None Seen [facility] Comment on above: Order Comment: CLEAN CATCH Performed By: #### L 7400.0280, L3410.9992, L400.0001, L100.0100, M100.2200, L503.7505, L500.4050 #### [facility] [address] [place], [address] Mucus Ql (Urine sed) 0 SEEN Normal [facility] Comment on above: Order Comment: CLEAN CATCH Performed By: #### L 7400.0280, L3410.9992, L400.0001, L100.0100, M100.2200, L503.7505, L500.4050 #### [facility] [address] [place], [address] RBC 0 SEEN Normal 0-5 [facility] Comment on above: Order Comment: CLEAN CATCH Performed By: #### L 7400.0280, L3410.9992, L400.0001, L100.0100, M100.2200, L503.7505, L500.4050 #### [facility] [address] [place], [address] Urine clarityOrdered By: Rey Diego on 10-15-2024 Clarity (U) Clear Clear [facility] Urine color determinationOrd ered By: Kayla Diego on 10-15-2024 Color (U) Yellow Yellow [facility] Urine cultureOrdered By: Rey Diego on 10-15-2024 Bacteria identified Cx Nom (U) Positive Abnormal [facility] Urine glucose detectionOrder ed By: Kayla Diego on 10-15-2024 Glucose Ql (U) Normal mg/dl Normal [facility] Urine leukocyte esterase det ection by dipstickOrdered By: Kayla Diego on 10-15-2024 Leukocyte esterase Test strip Ql (U) Negative Negative [facility] Urine pHOrdered By: Kayla gonzales on 10-15-2024 pH (U) 7.0 [pH] 5.0 - 8.0 [facility] Urine sediment bacteria coun t by microscopy (number/high power field)Ordered By: Kayla Diego on 10-15-2024 Bacteria LM.HPF (Urine sed) [#/Area] 0 /[HPF] None Seen [facility] Urine specific gravity measu rementOrdered By: Kayla Diego on 10-15-2024 Specific gravity (U) [Rel density] 1.010 1.002-1.030 [facility] Urine urobilinogen measureme ntOrdered By: Kayla Diego on 10-15-2024 Urobilinogen Ql (U) 1 mg/dl High Normal [facility] White blood cell (WBC) count Ordered By: Kayla Johnathon on 10-15-2024 WBC (Bld) [#/Vol] 4.4 10*3/uL 4.4-11.0 [facility] White blood cell countOrdere d By: Kayla Diego on 10-15-2024 White blood cell count 0-5 SEEN /hpf 0-5 [facility] Hepatitis Panel Acuteon 09-29 HCV Interpretat Comment Normal . [facility] Comment on above: Result Comment: Posi tive HCV antibody screen without the presence of HCV RNA is consistent with a resolved past infection or a false positive HCV antibody. Consider repeat testing after one month. Performed at: [facility] [id number] Vascular Ultrasound Technologist: Александр Florian PhD, Phone: [phone] Performed at: [facility] [id number] Vascular Ultrasound Technologist: Radha Roche MD, Phone: [phone] Performed By: #### L 501.9985, L3000.0375, L3890.6006, L500.4050, L509.8002, L500.4100 #### [facility] [address] [place], [address] HCV log 10 TNP Normal . [facility] Comment on above: Performed By: #### L 501.9985, L3000.0375, L3890.6006, L500.4050, L509.8002, L500.4100 #### [facility] [address] [place], [address] HEP B CORE,IgM Negative Normal Negative [facility] Comment on above: Performed By: #### L 501.9985, L3000.0375, L3890.6006, L500.4050, L509.8002, L500.4100 #### [facility] [address] [place], [address] HEP B SURF AG Negative Normal Negative [facility] Comment on above: Performed By: #### L 501.9985, L3000.0375, L3890.6006, L500.4050, L509.8002, L500.4100 #### [facility] [address] [place], [address] Hep C Quant Not detected Normal . [facility] Comment on above: Performed By: #### L 501.9985, L3000.0375, L3890.6006, L500.4050, L509.8002, L500.4100 #### [facility] [address] [place], [address] HEP C VIRUS AB Reactive Abnormal Non Reactive [facility] Comment on above: Result Comment: Clie nt Requested Flag Performed By: #### L 501.9985, L3000.0375, L3890.6006, L500.4050, L509.8002, L500.4100 #### [facility] [address] [place], [address] HEPATITIS A-IgM Negative Normal Negative [facility] Comment on above: Result Comment: A ne gative anti-HAV IgM result suggests no recent or current HAV infection. Performed By: #### L 501.9985, L3000.0375, L3890.6006, L500.4050, L509.8002, L500.4100 #### [facility] [address] [place], [address] Test Informatio Comment Normal . [facility] Comment on above: Result Comment: The quantitative range of this assay is 15 IU/mL to 100 million IU/mL. Performed By: #### L 501.9985, L3000.0375, L3890.6006, L500.4050, L509.8002, L500.4100 #### [facility] [address] [place], [place], [id number] Anion gap in Serum or Plasma Ordered By: Kayla Diego on 10-06-2024 Anion gap [Moles/Vol] 14 mmol/L 5-[address] [facility] BUN/creatinine ratioOrdered By: Kayla Diego on 10-06-2024 Urea nitrogen/Creatinine [Mass ratio] 17.2 mg/mg 10- [facility] Bilirubin, totalOrdered By: Kayla Diego on 10-06-2024 Bilirubin [Mass/Vol] 0.45 mg/dL 0.00-1.30 [facility] Calculated very low density lipoprotein (VLDL) cholesterol measurementOrdered By: Kayla Diego on 10-06-2024 Calculated very low density lipoprotein (VLDL) cholesterol measurement 28 mg/dL 5-40 [facility] Carbon dioxide, total [Moles /volume] in Central venous bloodOrdered By: Kayla Diego on 10-06-2024 CO2 [Moles/Vol] 22.2 mmol/L 21.0-32.0 [facility] Chloride assayOrdered By: Janie Diego on 10-06-2024 Chloride [Moles/Vol] 103 mmol/L 98-108 [facility] Comprehensive Metabolic Prof ilon 10-06-2024 Albumin [Mass/Vol] 4.0 g/dL Normal 3.5-5.0 [facility] Comment on above: Performed By: #### L 501.9985, L3000.0375, L3890.6006, L500.4050, L509.8002, L500.4100 #### [facility] [address] [place], [place], [id number] Albumin/Globulin [Mass ratio] 1.0 {ratio} Normal 0.9-2.4 [facility] Comment on above: Performed By: #### L 501.9985, L3000.0375, L3890.6006, L500.4050, L509.8002, L500.4100 #### [facility] [address] [place], [address] ALK PHOS 83 U/L Normal 35-104 [facility] Comment on above: Performed By: #### L 501.9985, L3000.0375, L3890.6006, L500.4050, L509.8002, L500.4100 #### [facility] [address] [place], [address] ALT [Catalytic activity/Vol] 24 U/L Normal <=34 [facility] Comment on above: Performed By: #### L 501.9985, L3000.0375, L3890.6006, L500.4050, L509.8002, L500.4100 #### [facility] [address] [place], [address] AST [Catalytic activity/Vol] 26 U/L Normal <=31 [facility] Comment on above: Performed By: #### L 501.9985, L3000.0375, L3890.6006, L500.4050, L509.8002, L500.4100 #### [facility] [address] [place], [place], [id number] [phone] Bilirubin [Mass/Vol] 0.45 mg/dL Normal 0.00-1.30 [facility] Comment on above: Performed By: #### L 501.9985, L3000.0375, L3890.6006, L500.4050, L509.8002, L500.4100 #### [facility] [address] [place], [address] BUN/CRE 17.2 RATIO Normal 10-20 [facility] Comment on above: Performed By: #### L 501.9985, L3000.0375, L3890.6006, L500.4050, L509.8002, L500.4100 #### [facility] [address] [place], [place], [id number] [phone] Calcium [Mass/Vol] 9.2 mg/dL Normal 7.6-11.0 [facility] Comment on above: Performed By: #### L 501.9985, L3000.0375, L3890.6006, L500.4050, L509.8002, L500.4100 #### [facility] [address] [place], [address] Chloride [Moles/Vol] 103 mmol/L Normal 98-108 [facility] Comment on above: Performed By: #### L 501.9985, L3000.0375, L3890.6006, L500.4050, L509.8002, L500.4100 #### [facility] [address] [place], [address] CO2 [Moles/Vol] 22.2 mmol/L Normal 21.0-32.0 [facility] Comment on above: Performed By: #### L 501.9985, L3000.0375, L3890.6006, L500.4050, L509.8002, L500.4100 #### [facility] [address] [place], [address] Creatinine [Mass/Vol] 0.88 mg/dL Normal 0.70-1.[address] [facility] Comment on above: Performed By: #### L 501.9985, L3000.0375, L3890.6006, L500.4050, L509.8002, L500.4100 #### [facility] [address] [place], [address] GAP 14 Normal 5-15 [facility] Comment on above: Performed By: #### L 501.9985, L3000.0375, L3890.6006, L500.4050, L509.8002, L500.4100 #### [facility] [address] [place], [address] GFR/1.73 sq M.predicted among non-blacks MDRD (S/P/Bld) [Vol rate/Area] 81 mL/min/{1.73_m2} Normal >60 [facility] Comment on above: Result Comment: mL/m in/1.73m2 CKD-EPI Creatinine Equation (2020) Performed By: #### L 501.9985, L3000.0375, L3890.6006, L500.4050, L509.8002, L500.4100 #### [facility] [address] [place], [address] Globulin (S) [Mass/Vol] 3.8 g/dL Normal 2.2-4.2 [facility] Comment on above: Performed By: #### L 501.9985, L3000.0375, L3890.6006, L500.4050, L509.8002, L500.4100 #### [facility] [address] [place], [address] Glucose [Mass/Vol] 96 mg/dL Normal 70-99 [facility] Comment on above: Performed By: #### L 501.9985, L3000.0375, L3890.6006, L500.4050, L509.8002, L500.4100 #### [facility] [address] [place], [address] Potassium [Moles/Vol] 4.3 mmol/L Normal 3.3-5.[address] [facility] Comment on above: Performed By: #### L 501.9985, L3000.0375, L3890.6006, L500.4050, L509.8002, L500.4100 #### [facility] [address] [place], [address] Sodium [Moles/Vol] 140 mmol/L Normal 133-145 [facility] Comment on above: Performed By: #### L 501.9985, L3000.0375, L3890.6006, L500.4050, L509.8002, L500.4100 #### [facility] [address] [place], [address] T PROT 7.7 g/dL Normal 5.9-8.4 [facility] Comment on above: Performed By: #### L 501.9985, L3000.0375, L3890.6006, L500.4050, L509.8002, L500.4100 #### [facility] [address] [place], [address] Urea nitrogen [Mass/Vol] 15 mg/dL Normal 4-19 [facility] Comment on above: Performed By: #### L 501.9985, L3000.0375, L3890.6006, L500.4050, L509.8002, L500.4100 #### [facility] [address] [place], [place], [address] Gastroenterology Visit Repor ton 10-06-2024 Gastroenterology Visit Report [facility] [address] [place] [address] OFFICE VISIT Date of Service: 10/06/24 MR#: [id number] Acct: [id number] Name: LINDA BRUMFIELD Rep #: [id number] : 1975 Provider: LOLA plata Age/Sex: 48/F [place] [facility] [place]: Signed Intake Vital Signs 10/06/24 09:46 Height 5 ft 7 in Weight: 269 lb 6 oz BMI 42.2 BP 128/69 H Respiration 18 Pulse 79 Temp 97.5 F L Pulse Oximetry (%) 97 Oxygen Delivery Method room air Intake Visit Reasons: CONSTIPATION Chief Complaint: constipation Induction Coordination Power Engineer Required: No Accompanied by: Self Is patient in pain?: Yes Allergies erythromycin base (From E-Mycin) Allergy (Mild, Verified 10/06/24 09:44) chest pain and swelling hydroxyzine Allergy (Mild, Verified 10/06/24 09:44) elevates heart rate Medications ???Medication ???Instructions ???Recorded ???Confirmed ???Type all seltzer fizzy melts PO PRN 10/06/24 History hydrocortisone 2.5 % topical cream 1 applic [place] QD-BID PRN rectal pa in 10/06/24 10/06/24 [...] mg PO QHS 10/06/24 10/06/24 Hist ory [facility] Medical History (Updated 10/06/24 @ 13:53 [...] month ago - just moved here from [facility] - Marijuana use intermittent - reports [...] ectasia lik (more content not included)... Normal [facility] Glomerular filtration rate ( GFR) estimation/1.73 sq m using serum, plasma, or whole bOrdered By: Kayla Diego on 10-06-2024 GFR/1.73 sq M.predicted among non-blacks MDRD (S/P/Bld) [Vol rate/Area] 81 mL/min/{1.73_m2} >60 [facility] Comment on above: mL/min/1.73m2 CKD-EP I Creatinine Equation (2020) HIVon 10-06-2024 HIV Non-Reactive Normal Nonreactive [facility] Comment on above: Result Comment: Non- Reactive Reactive Repeatedly reactive samples must be confirmed according to CDC recommended confirmatory algorithms. The subresults for either HIVAG or AHIV can be used as an aid in the selection of the confirmation algorithm for reactive samples. Send out specimens with Reactive results to [facility] for confirmation. Order the HIV antibody detection and differentiation: [id number] Performed By: #### L 501.9985, L3000.0375, L3890.6006, L500.4050, L509.8002, L500.4100 #### [facility] [address] [place], [place], [id number] Hemoglobin A1con 10-06-2024 HbA1c (Bld) [Mass fraction] 5.7 % Normal <=5.6 [facility] Comment on above: Result Comment: Norm al < 5.7 % Prediabetic 5.7 - 6.4 % Diabetic >or= 6.5 % Please note range changes. Performed By: #### L 501.9985, L3000.0375, L3890.6006, L500.4050, L509.8002, L500.4100 #### [facility] [address] [place], [address] Hemoglobin A1c percentageOrd ered By: Kayla Diego on 10-06-2024 HbA1c (Bld) [Mass fraction] 5.7 % <5.7 [facility] Comment on above: Normal < 5.7 % Predi abetic 5.7 - 6.4 % Diabetic >or= 6.5 % Please note range changes. LDL calc ser/plasOrdered By: Kayla Diego on 10-06-2024 Cholesterol in LDL [Mass/Vol] 130 mg/dL [facility] Comment on above: Isdtbypflb=968-363 m g/dL & Higher Pvde=662 mg/dL or greater Laboratory - Chemistry and C hemistry - challengeOrdered By: Kayla Diego on 10-06-2024 AST [Catalytic activity/Vol] 26 U/L <32 [facility] Lipid Profileon 10-06-2024 CHOL:HDL 3.79 Normal [facility] Comment on above: Performed By: #### L 501.9985, L3000.0375, L3890.6006, L500.4050, L509.8002, L500.4100 #### [facility] [address] [place], [address] Cholesterol [Mass/Vol] 215 mg/dL High <=200 [facility] Comment on above: Result Comment: Chol esterol level, Desirable <200 mg/dL Borderline high cholesterol 200-239 mg/dL High cholesterol >=240 mg/dL Recommendations of the NCEP Adult Treatment Panel for the following risk-cutoff thresholds for the [place] population. Performed By: #### L 501.9985, L3000.0375, L3890.6006, L500.4050, L509.8002, L500.4100 #### [facility] [address] [place], [address] Cholesterol in HDL [Mass/Vol] 57 mg/dL Normal [facility] Comment on above: Result Comment: Margaret onal Cholesterol Education Program (NCEP) guidelines: <40 mg/dL: Low HDL-cholesterol (major risk factor for CHD) >= 60 mg/dL: High HDL-cholesterol (negative risk factor for CHD) HDL-cholesterol is affected by a number of factors, e.g. smoking, exercise, hormones, sex and age. Performed By: #### L 501.9985, L3000.0375, L3890.6006, L500.4050, L509.8002, L500.4100 #### [facility] [address] [place], [address] Cholesterol in LDL [Mass/Vol] 130 mg/dL Normal [facility] Comment on above: Result Comment: Bord ufxxzf=871-767 mg/dL Higher Giwu=270 mg/dL or greater Performed By: #### L 501.9985, L3000.0375, L3890.6006, L500.4050, L509.8002, L500.4100 #### [facility] [address] [place], [address] Cholesterol in VLDL [Mass/Vol] 28 mg/dL Normal 5-40 [facility] Comment on above: Performed By: #### L 501.9985, L3000.0375, L3890.6006, L500.4050, L509.8002, L500.4100 #### [facility] [address] [place], [address] Triglyceride [Mass/Vol] 142 mg/dL Normal [facility] Comment on above: Result Comment: The drugs N-Acetylcysteine and Metamizole may falsely depress this assay. Normal range: <150 mg/dL Borderline High: 150-199 mg/dL High: 200-499 mg/dL Very High: >500 mg/dL Performed By: #### L 501.9985, L3000.0375, L3890.6006, L500.4050, L509.8002, L500.4100 #### [facility] [address] [place], [address] No Panel InformationOrdered By: Kayla Diego on 10-06-2024 HCV log10 Confirmation TNP [facility] Comment on above: Test not performed Hepatitis C RNA Qnt (PCR) Test Info Comment . [facility] Comment on above: The quantitative ran ge of this assay is 15 IU/mL to 100million IU/mL. Hepatitis C Virus Note Comment . [facility] Comment on above: Positive HCV antibod y screen without the presence of HCVRNA is consistent with a resolved past infection or a falsepositive HCV antibody. Consider repeat testing after onemonth.Performed at: [facility] [address] [id number] Director: Александр Florian PhD, Phone: [phone] at: [facility] [address] [id number] Director: Radha Roche MD, Phone: [phone] HIV (1&2) Antibody Non-Reactive Nonreactive [facility] Comment on above: Non-ReactiveReactive Repeatedly reactive samples must be confirmed according to CDC recommended confirmatory algorithms. The subresults for either HIVAG or AHIV can be used as an aid in the selection of the confirmation algorithm for reactive samples.Send out specimens with Reactive results to [facility] for confirmation.Order the HIV antibody detection and differentiation: #[id number] Potassium measurement (mass/ volume)Ordered By: Kayla Diego on 10-06-2024 Potassium (Unsp spec) [Mass/Vol] 4.3 mmol/L 3.3-5.1 [facility] Screening total cholesterol/ high density lipoprotein (HDL) cholesterol ratioOrdered By: Kayladallas Diego on 10-06-2024 Cholesterol.total/Cho lesterol in HDL [Mass ratio] 3.79 {ratio} [facility] Serum creatinine measurement (mass/volume)Ordered By: Kayladallas Diego on 10-06-2024 Creatinine [Mass/Vol] 0.88 mg/dL 0.70-1.[address] [facility] Serum globulin measurementOr dered By: Kayla Diego on 10-06-2024 Globulin (S) [Mass/Vol] 3.8 g/dL 2.2-4.2 [facility] Serum glucose measurement (m ass/volume)Ordered By: Kayla Diego on 10-06-2024 Glucose [Mass/Vol] 96 mg/dL 70-99 [facility] Serum or plasma alanine valdivia otransferase (ALT) measurementOrdered By: Kayladallas Diego 10-06-2024 ALT [Catalytic activity/Vol] 24 U/L <35 [facility] Serum or plasma albumin marilee urement (mass/volume)Ordered By: Kayla Diego on 10-06-2024 Albumin [Mass/Vol] 4.0 g/dL 3.5-5.0 [facility] Serum or plasma albumin/glob ulin mass ratioOrdered By: [facility]ladallas [facility] 10-06-2024 Albumin/Globulin [Mass ratio] 1.0 {ratio} 0.9-2.4 [facility] Serum or plasma alkaline emerson sphatase measurementOrdered By: Kayladallas [facility] 10-06-2024 ALP [Catalytic activity/Vol] 83 U/L 35-104 [facility] Serum or plasma calcium marilee urement (mass/volume)Ordered By: Kayla Diego on 10-06-2024 Calcium [Mass/Vol] 9.2 mg/dL 7.6-11.0 [facility] Serum or plasma cholesterol in HDL measurement (mass/volume)Ordered By: Kayla Diego on 10-06-2024 Cholesterol in HDL [Mass/Vol] 57 mg/dL >40 [facility] Comment on above: National Cholesterol Education Program (NCEP) guidelines:<40 mg/dL: Low HDL-cholesterol (major risk factor for CHD)>= 60 mg/dL: High HDL-cholesterol (negative risk factor for CHD)HDL-cholesterol is affected by a number of factors, e.g. smoking, exercise, hormones, sex and age. Serum or plasma cholesterol measurement (mass/volume)Ordered By: Kayla Diego on 10-06-2024 Cholesterol [Mass/Vol] 215 mg/dL High <201 [facility] Comment on above: Cholesterol level, D esirable <200 mg/dLBorderline high cholesterol 200-239 mg/dLHigh cholesterol >=240 mg/dLRecommendations of the NCEP Adult Treatment Panel for the following risk-cutoff thresholds for the [place] population. Serum or plasma hepatitis B virus surface antigen detection by immunoassayOrdered By: Kayla Diego on 10-06-2024 HBV surface Ag IA Ql Negative Negative [facility] Serum or plasma urea nitroge n measurement (mass/volume)Ordered By: Kayla Diego on 10-06-2024 Urea nitrogen [Mass/Vol] 15 mg/dL 4-19 [facility] Sodium levelOrdered By: Amaris Diego on 10-06-2024 Sodium [Moles/Vol] 140 mmol/L 133-145 [facility] Syphilis Antibodieson 2024 Syphilis Abs Non-Reactive Normal Nonreactive [facility] Comment on above: Performed By: #### L 501.9985, L3000.0375, L3890.6006, L500.4050, L509.8002, L500.4100 #### [facility] Laboratory [facility] [address]. [place], [place], [id number] Total proteinOrdered By: Rey Diego on 10-06-2024 Protein [Mass/Vol] 7.7 g/dL 5.9-8.4 [facility] Triglycerides measurementOrd ered By: Kayla Diego on 10-06-2024 Triglyceride [Mass/Vol] 142 mg/dL <199 [facility] Comment on above: The drugs N-Acetylcy steine and Metamizole may falsely depress this assay. Normal range: <150 mg/dLBorderline High: 150-199 mg/dLHigh: 200-499 mg/dLVery High: >500 mg/dL CULT URINEon 09-27-2023 CULT URINE SPECIMEN DESCRIPTION Urine, Clean Catch SPECIMEN TYPE Urine Tested at [facility] [address] [place] [address] CULTURE RESULTS Multiple bacterial species isolated from urine consistent with urogenital commensal organisms. REPORT STATUS 09/27/2023 FINAL REPORT Normal [facility] Comment on above: Performed By: #### U RNC #### Eva Fernández ([id number]) [facility] [id number] [place] [address] TROPONIN I HIGH SENSITIVEon 09-26-2023 TROPONIN I HIGH SENSITIVE <3 Normal <15 [facility] Comment on above: Result Comment: Inte rpretive Guidelines: LOW RISK: <3 ng/L or Delta <4 and below 15 ng/L LOW INTERMEDIATE RISK: <15 ng/L HIGH INTERMEDIATE RISK: >/=15 ng/L HIGH RISK: >/=88 ng/L or Delta >/=22 Tested at [facility] [address] [place] [address] Performed By: #### H STNI #### Eva Fernández ([id number]) [facility] [address] [place] [address] BASIC METABOLIC PNLon 2023 Anion gap [Moles/Vol] 9 mmol/L Normal 4-16 [facility] Comment on above: Performed By: #### B AMP #### Eva Fernández ([id number]) [facility] [address] [place] [address] Calcium [Mass/Vol] 9.0 mg/dL Normal 8.5-10.4 [facility] Comment on above: Performed By: #### B AMP #### Eva Fernández ([id number]) [facility] [address] [place] [address] Chloride [Moles/Vol] 104 mmol/L Normal 98-111 [facility] Comment on above: Performed By: #### B AMP #### Eva Fernández ([id number]) [facility] [address] [place] [address] CO2 [Moles/Vol] 26 mmol/L Normal 21-31 [facility] Comment on above: Performed By: #### B AMP #### Eva Fernández ([id number]) [facility] [address] [place] [address] Creatinine [Mass/Vol] 0.74 mg/dL Normal 0.60-1.20 [facility] Comment on above: Performed By: #### B AMP #### Eva Fernández ([id number]) [facility] [address] [place] [address] ESTIMATED GFR 100 mL/min/1.73 m2 Normal >59 [facility] Comment on above: Result Comment: Alis mated GFR was calculated using the CKD-EPI cr (2020) equation refit without race. The equation is recommended by the National Kidney Foundation - [place] Society of Nephrology Task Force. Tested at [facility] [address] [facility] [address] Performed By: #### B AMP #### Eva Fernández ([id number]) [facility] [address] [place] [address] Glucose [Mass/Vol] 97 mg/dL Normal 70-99 [facility] Comment on above: Performed By: #### B AMP #### Eva Fernández ([id number]) [facility] [address] [place] [address] Potassium [Moles/Vol] 3.7 mmol/L Normal 3.6-5.1 [facility] Comment on above: Performed By: #### B AMP #### Eva Fernández ([id number]) [facility] [address] [place] [address] Sodium [Moles/Vol] 139 mmol/L Normal 135-145 [facility] Comment on above: Performed By: #### B AMP #### Eva Fernández ([id number]) [facility] [address] [place] [address] Urea nitrogen [Mass/Vol] 13 mg/dL Normal 8-26 [facility] Comment on above: Performed By: #### B AMP #### Eva Fernández ([id number]) [facility] [address] [place] [address] CBC W/ DIFFon 09-25-2023 ABS BASOS 0.00 THOU/mcL Normal 0.00-0.20 [facility] Comment on above: Performed By: #### C BCD #### Eva Fernández ([id number]) [facility] [address] [place] [address] ABS EOS 0.10 THOU/mcL Normal 0.03-0.45 [facility] Comment on above: Performed By: #### C BCD #### Eva Fernández ([id number]) [facility] [address] [place] [address] ABS LYMPHS 2.10 THOU/mcL Normal 1.00-4.00 [facility] Comment on above: Performed By: #### C BCD #### Eva Fernádnez ([id number]) [facility] [address] [place] [address] ABS MONOS 0.50 THOU/mcL Normal 0.20-0.90 [facility] Comment on above: Performed By: #### C BCD #### Eva Fernández ([id number]) [facility] [address] [place] [address] ABS NEUTROPHIL 2.90 THOU/mcL Normal 1.80-7.70 [facility] Comment on above: Performed By: #### C BCD #### Eva Fernández ([id number]) [facility] [address] [place] [address] Basophils/100 WBC (Bld) 1 % Normal [facility] Comment on above: Result Comment: Test ed at [facility] [address] [facility] [address] Performed By: #### C BCD #### Eva Fernández ([id number]) [facility] [address] [place] [address] Eosinophils/100 WBC (Bld) 1 % Normal [facility] Comment on above: Performed By: #### C BCD #### Eva Fernández ([id number]) [facility] [address] [place] [address] Erythrocyte distribution width (RBC) [Ratio] 13.5 % Normal 12.3-17.0 [facility] Comment on above: Performed By: #### C BCD #### Eva Fernández ([id number]) [facility] [address] [place] [address] Hematocrit (Bld) [Volume fraction] 39.1 % Normal 36-46 [facility] Comment on above: Performed By: #### C BCD #### Eva Fernández ([id number]) [facility] [address] [place] [address] Hemoglobin (Bld) [Mass/Vol] 13.1 g/dL Normal 12.0-15.2 [facility] Comment on above: Performed By: #### C BCD #### Eva Fernández ([id number]) [facility] [address] [place] [address] Lymphocytes/100 WBC (Bld) 38 % Normal [facility] Comment on above: Performed By: #### C BCD #### Eva Fernández ([id number]) [facility] [address] [place] [address] MCH (RBC) [Entitic mass] 29.5 pg Normal 27-33 [facility] Comment on above: Performed By: #### C BCD #### Eva Fernández ([id number]) [facility] [address] [place] [address] MCHC (RBC) [Mass/Vol] 33.4 g/dL Normal 32-36 [facility] Comment on above: Performed By: #### C BCD #### Eva Fernández ([id number]) [facility] [address] [place] [address] MCV (RBC) [Entitic vol] 88.1 fL Normal 82-97 [facility] Comment on above: Performed By: #### C BCD #### Eva Fernández ([id number]) [facility] [address] [place] [address] Monocytes/100 WBC (Bld) 9 % Normal [facility] Comment on above: Performed By: #### C BCD #### Eva Fernández ([id number]) [facility] [address] [place] [address] PLATELET 215 THOU/mcL Normal 140-375 [facility] Comment on above: Performed By: #### C BCD #### Eva Fernández ([id number]) [facility] [address] [place] [address] Platelet mean volume (Bld) [Entitic vol] 8.0 fL Normal 7.4-11.5 [facility] Comment on above: Performed By: #### C BCD #### Eva Fernández ([id number]) [facility] [address] [place] [address] RBC 4.44 MIL/mcL Normal 3.80-5.20 [facility] Comment on above: Performed By: #### C BCD #### Eva Fernández ([id number]) [facility] [address] [place] [address] SEGS 51 % Normal [facility] Comment on above: Performed By: #### C BCD #### Eva Fernández ([id number]) [facility] [address] [place] [address] WBC 5.6 THOU/mcL Normal 3.6-10.5 [facility] Comment on above: Performed By: #### C BCD #### Eva Fernández ([id number]) [address] [address] [address] ABDOMEN PELVIS WO CONTRAS Ton 09-25-2023 CT ABDOMEN PELVIS WO CONTRAST CT ABDOMEN PELVIS WO CONTRAST HISTORY: Flank pain, kidney stone suspected left flank pain, vomiting , chest pain COMPARISON: Abdomen/pelvis CT 12-19 TECHNIQUE: Noncontrast multiplanar CT images of the abdomen and pelvis NOTE: If there are questions about the content of this report, please contact [facility] radiology by calling [phone] FINDINGS: LOWER CHEST: Unremarkable LIVER: Unremarkable GALLBLADDER/BILE [...] MD on 09/26/2023 12:21 AM 170.2 124.739 [facility] Imaging Report - Main Call Center - [facility] Call Center: Normal [facility] ED PROV NOTEon 09-25-2023 ED PROV NOTE Fraud Investigator Authentication Interface Message Text [facility] EMERGENCY DEPARTMENT ED Encounter Arrival Date: 09/25/23 214 Linda Brumfield : 1975 [address] [place] [address] CSN: [id number] RAYRAY: [id number] EMERGENCY DEPARTMENT ENCOUNTER History: Chief Complaint Patient [...] g/dL RDW (more content not included)... Normal [facility] HCG,POC URINEon 09-25-2023 Beta HCG ( test) Ql (U) Negative Normal NEGATIVE [facility] Comment on above: Performed By: #### P HCG #### Eva Fernández ([id number]) [facility] [address] [place] [address] HEPATIC FUNC PANELon 024 Albumin [Mass/Vol] 3.7 g/dL Normal 3.5-5.7 [facility] Comment on above: Performed By: #### L IVER #### Eva Fernández ([id number]) [facility] [address] [place] [address] ALP [Catalytic activity/Vol] 65 U/L Normal 35-135 [facility] Comment on above: Performed By: #### L IVER #### Eva Fernández ([id number]) [facility] [address] [place] [address] ALT [Catalytic activity/Vol] 10 U/L Normal 10-60 [facility] Comment on above: Performed By: #### L IVER #### Eva Fernández ([id number]) [facility] [address] [place] [address] AST [Catalytic activity/Vol] 13 U/L Normal 10-40 [facility] Comment on above: Performed By: #### L IVER #### Eva Fernández ([id number]) [facility] [address] [place] [address] Bilirubin [Mass/Vol] 0.3 mg/dL Normal 0.0-1.2 [facility] Comment on above: Performed By: #### L IVER #### Eva Fernández ([id number]) [facility] [address] [place] [address] Bilirubin.direct [Mass/Vol] 0.1 mg/dL Normal 0.0-0.2 [facility] Comment on above: Result Comment: Test ed at [facility] [address] [place] [address] Performed By: #### L IVER #### Eva Fernández ([id number]) [facility] [address] [place] [address] Protein [Mass/Vol] 7.0 g/dL Normal 6.0-8.0 [facility] Comment on above: Performed By: #### L IVER #### Eva Fernández ([id number]) [facility] [address] [place] [address] LIPASEon 09-25-2023 Lipase [Catalytic activity/Vol] 51 U/L Normal 11-82 [facility] Comment on above: Result Comment: Test ed at [facility] [address] [place] [address] Performed By: #### L IPA #### Eva Fernández ([id number]) [facility] [address] [place] [address] UAS REFLEXon 09-25-2023 Appearance (U) Clear Normal Clear [facility] Comment on above: Performed By: #### U ASR #### Eva Fernández ([id number]) [facility] [address] [place] [address] BACTERIA SEE NOTES Abnormal NONE [facility] Comment on above: Result Comment: FEW Performed By: #### U ASR #### Eva Fernández ([id number]) [facility] [address] [place] [address] BILIRUBIN,URINE Negative Normal NEGATIVE [facility] Comment on above: Performed By: #### U ASR #### Eva Fernández ([id number]) [facility] [address] [place] [address] BLOOD, URINE Negative Normal NEGATIVE [facility] Comment on above: Performed By: #### U ASR #### Eva Fernández ([id number]) [facility] [address] [place] [address] Color (U) Yellow Normal Yellow [facility] Comment on above: Result Comment: Ligh t Yellow Performed By: #### U ASR #### Eva Fernández ([id number]) [facility] [address] [place] [address] Glucose Ql (U) Negative Normal NEGATIVE [facility] Comment on above: Performed By: #### U ASR #### Eva Fernández ([id number]) [facility] [address] [place] [address] Ketones Ql (U) Negative Normal NEGATIVE [facility] Comment on above: Performed By: #### U ASR #### Eva Fernández ([id number]) [facility] [address] [place] [address] Leukocyte esterase Test strip Ql (U) 4+ (500 Ena/uL) Abnormal NEGATIVE [facility] Comment on above: Performed By: #### U ASR #### Eva Fernández ([id number]) [facility] [address] [place] [address] Mucus Ql (Urine sed) PRESENT Normal [facility] Comment on above: Result Comment: Test ed at [facility] [address] [facility] [address] Performed By: #### U ASR #### Eva Fernández ([id number]) [facility] [address] [place] [address] Nitrite Ql (U) Negative Normal NEGATIVE [facility] Comment on above: Performed By: #### U ASR #### Eva Fernández ([id number]) [facility] [address] [place] [address] pH (U) 6.0 [pH] Normal 5.0-8.0 [facility] Comment on above: Performed By: #### U ASR #### Eva Fernández ([id number]) [facility] [address] [place] [address] PROTEIN URIN Trace (10-20 mg/dL) Abnormal NEGATIVE [facility] Comment on above: Performed By: #### U ASR #### Eva Fernández ([id number]) [facility] [address] [place] [address] RBC (U) [#/Vol] /uL Normal <6 [facility] Comment on above: Result Comment: 3 to 5 Performed By: #### U ASR #### Eva Fernández ([id number]) [facility] [address] [place] [address] SPEC.GRAVITY,URINE 1.021 Normal 1.005-1.029 [facility] Comment on above: Performed By: #### U ASR #### Eva Fernández ([id number]) [facility] [address] [place] [address] SQUAMOUS EPI CELLS 6 to 10 Normal [facility] Comment on above: Performed By: #### U ASR #### Eva Fernández ([id number]) [facility] [address] [place] [address] UROBILINOGEN 1+ (2-3 mg/dL) Abnormal NORMAL [facility] Comment on above: Performed By: #### U ASR #### gayla Cortezew ([id number]) [facility] [address] [place] [address] WBC 11 to 20 Abnormal <6 [facility] Comment on above: Performed By: #### U ASR #### gayla Pradeep ([id number]) [facility] [address] [place] [address] SPECIMEN SOURCE Urine, Clean Catch Normal B [facility] Comment on above: Performed By: #### U ASR #### gayla Pradeep ([id number]) [facility] [address] [place] [address] URINE TYPE Urine Normal [facility] Comment on above: Performed By: #### U ASR #### Yunisummer Pradeep ([id number]) [facility] [address] [place] [address] CBC W Auto Differential pane l (Bld)on 10-09-2022 Basophils (Bld) [#/Vol] 0.1 10*3/uL 0.0 - 0.2 K/uL [facility] Basophils/100 WBC (Bld) 0.8 % [facility] Eosinophils (Bld) [#/Vol] 0.0 10*3/uL 0.0 - 0.6 K/uL [facility] Eosinophils/100 WBC (Bld) 0.3 % [facility] Erythrocyte distribution width (RBC) [Entitic vol] 13.7 % 12.4 - 15.4 % [facility] Hematocrit (Bld) [Volume fraction] 41.1 % 36.0 - 48.0 % [facility] Hemoglobin (Bld) [Mass/Vol] 13.6 g/dL 12.0 - 16.0 g/dL [facility] Lymphocytes (Bld) [#/Vol] 1.3 10*3/uL 1.0 - 5.1 K/uL [facility] Lymphocytes/100 WBC (Bld) 14.4 % [facility] MCH (RBC) [Entitic mass] 29.7 pg 26.0 - 34.0 pg [facility] MCHC (RBC) [Mass/Vol] 33.0 g/dL 31.0 - 36.0 g/dL [facility] MCV (RBC) [Entitic vol] 89.8 fL 80.0 - 100.0 fL [facility] Monocytes (Bld) [#/Vol] 0.8 10*3/uL 0.0 - 1.3 K/uL [facility] Monocytes/100 WBC (Bld) 9.3 % [facility] Neutrophils (Bld) [#/Vol] 6.8 10*3/uL 1.7 - 7.7 K/uL [facility] Neutrophils/100 WBC (Bld) 75.2 % [facility] Platelet mean volume (Bld) [Entitic vol] 7.7 fL 5.0 - 10.5 fL [facility] Platelets (Bld) [#/Vol] 238 10*3/uL 135 - 450 K/uL [facility] RBC (Bld) [#/Vol] 4.57 10*6/uL [facility] WBC (Bld) [#/Vol] 9.0 10*3/uL 4.0 - 11.0 K/uL [facility] Comprehensive metabolic 2000 panelon 10-09-2022 Albumin [Mass/Vol] 3.7 g/dL 3.4 - 5.0 g/dL [facility] Albumin/Globulin [Mass ratio] 0.9 {ratio} Low 1.1 - 2.2 [facility] ALP [Catalytic activity/Vol] 66 U/L 40 - 129 U/L [facility] ALT [Catalytic activity/Vol] 8 U/L Low 10 - 40 U/L [facility] Anion gap [Moles/Vol] 8 mmol/L 3 - 16 [facility] AST [Catalytic activity/Vol] 15 U/L 15 - 37 U/L [facility] Bilirubin [Mass/Vol] 0.4 mg/dL 0.0 - 1 .0 mg/dL [facility] Calcium [Mass/Vol] 9.6 mg/dL 8.3 - 10. 6 mg/dL [facility] Chloride [Moles/Vol] 103 mmol/L 99 - 11 0 mmol/L [facility] CO2 [Moles/Vol] 26 mmol/L 21 - 32 mmol/L [facility] Creatinine [Mass/Vol] 0.7 mg/dL 0.6 - 1.1 mg/dL [facility] GFR/1.73 sq M.predicted CKD-EPI (S/P/Bld) [Vol rate/Area] 60 - PINF [facility] Comment on above: Pediatric calculator link [...] [Mass/Vol] 91 mg/dL 70 - 99 mg/dL [facility] Interpretation and review of laboratory results Abnormal [facility] Potassium [Moles/Vol] 4.1 mmol/L 3.5 - 5.1 mmol/L [facility] Protein [Mass/Vol] 7.6 g/dL 6.4 - 8.2 g/dL [facility] Sodium [Moles/Vol] 137 mmol/L 136 - 145 mmol/L [facility] Urea nitrogen [Mass/Vol] 10 mg/dL 7 - 20 mg/dL [facility] HCG ( test) Qlon [facility] HCG Qualitative, Serumon HCG ( test) Ql Negative Detects HCG level >10 MIU/mL [facility] No Panel Informationon 10-09 [facility] Troponinon 10-09-2022 Troponin, High Sensitivity 8 ng/L 0 - 14 ng/L [facility] Comment on above: The high-sensitivity troponin T result should not be compared with other troponin methodologies. [facility] Troponin, High Sensitivity 8 ng/L 0 - 14 ng/L [facility] Comment on above: The high-sensitivity troponin T result should not be compared with other troponin methodologies. XR CHEST PORTABLEon 10-10-19 No definite portable radiographic evidence of acute cardiopulmonary disease when patient rotation to the right, patient body habitus and low lung volumes taken a consideration. [facility] EXAMINATION: ONE XRAY VIEW OF THE CHEST [...] widening when patient positioning taken a consideration [facility] Bucky Barrios D O - 10/09/2022 EXAMINATION: [...] and low lung volumes taken a consideration. [facility] Radiology Study observation (narrative) [facility] XR CHEST PORTABLEOrdered By: Bucky Barrios on 10-09-2022 [facility] Work Phone: FOLATESon 03-17-2020 FOLATES 15.3 ng/mL Normal >5.21 [facility] Comment on above: Performed By: #### L [id number] #### [facility] [address] [place] [address] PREG TEST, UA QUALon 020 TEST,UR QL Negative Normal NEGATIVE [facility] Comment on above: Performed By: #### L [id number] #### [facility] [address] [place] [address] SARS CoV-2, OL, PCR RAPIDon 03-17-2020 SARS CoV-2, OL, PCR RAPID Undetected Normal Undetected [facility] Comment on above: Order Comment: Sympt omatic?->No Indications (select all that apply)->Admission Result Comment: Testing was performed using the [employer] Direct. Fact sheets for this Emergency Use Authorization (EUA) assay can be found at the following links: For Healthcare Providers: https://www.fda.gov/media/517497/download For Patients: https://www.fda.gov/media/647919/download Test Performed by: [facility],[address] [place] [address], Vascular Ultrasound Technologist: Umu Cuello MD; CLIA#: [id number] Performed By: #### L [id number] #### [place] [address] SARS CoV-2, OL, PCR RAPID Undetected Normal Undetected [facility] Comment on above: Order Comment: Sympt omatic?->No Indications (select all that apply)->Behavioral Med Result Comment: Testing was performed using the Quidel Aminata Direct. Fact sheets for this Emergency Use Authorization (EUA) assay can be found at the following links: For Healthcare Providers: https://www.fda.gov/media/339834/download For Patients: https://www.fda.gov/media/670389/download Test Performed by: [facility],[address] [place] [address], Vascular Ultrasound Technologist: Umu Cuello MD; CLIA#: [id number] Performed By: #### L [id number] #### [place] [address] SARS-CoV-2 Ag, QL (SWAB)on 1 05-18-2019 SARS-CoV-2 Ag, QL (SWAB) Negative Normal Undetected [facility] Comment on above: Order Comment: Sympt omatic?->No Indications (select all that apply)->Behavioral Med Performed By: #### L [id number] #### [place] [address] [place] [address] TOX SCREEN, RAPID, URon 12- AMPHETAMINES, UR Negative Normal Cutoff: 1000 [facility] Comment on above: Performed By: #### L CR8081 #### [facility] [address] [place] [address] BARBITURATES, UR Negative Normal Cutoff: 200 [facility] Comment on above: Performed By: #### L CL9147 #### [facility] [address] [place] [address] BENZODIAZEPINES, UR Negative Normal Cutoff: 200 [facility] Comment on above: Performed By: #### L DH5039 #### [place] [address] BUPRENORPHINE, UR Negative Normal Cutoff: 5 [facility] Comment on above: Result Comment: Note , cutoff changed from 10 to 5 ng/mL 02/13/18. Performed By: #### L VJ3844 #### [place] [address] CANNABINOID, UR Negative Normal Cutoff: 50 [facility] Comment on above: Performed By: #### L EK6293 #### [place] [address] COCAINE, UR Negative Normal Cutoff: 300 [facility] Comment on above: Performed By: #### L MU3550 #### [place] [address] FENTANYL, UR Negative Normal Cutoff: 200 [facility] Comment on above: Performed By: #### L JR2246 #### [place] [address] METHADONE, UR Negative Normal Cutoff: 300 [facility] Comment on above: Performed By: #### L EW3556 #### [place] [address] OPIATES, UR Negative Normal Cutoff: 300 [facility] Comment on above: Performed By: #### L OI4904 #### [place] [address] OXYCODONE, UR Negative Normal Cutoff: 300 [facility] Comment on above: Performed By: #### L LA5556 #### [facility] [address] [place] [address] PHENCYCLIDINE, UR Negative Normal Cutoff: 25 [facility] Comment on above: Performed By: #### L HE1381 #### [facility] [address] [place] [address] PROPOXYPHENE, UR Negative Normal Cutoff: 300 [facility] Comment on above: Result Comment: IM PORTANT This is a screening method. The test results are to be used for medical purposes only. Many common compounds can cause false positive results. Confirmation of a positive result is available upon request. Performed By: #### L [id number] #### [place] [address] TRICYCLICS, UR Negative Normal Cutoff: 300 [facility] Comment on above: Performed By: #### L LP5036 #### [place] [address] TSHon 03-17-2020 TSH Qn 2.91 u[iU]/mL Normal 0.30-5.60 [facility] Comment on above: Performed By: #### L DS2724 #### [place] [address] URINALYSISon 03-17-2020 Protein (U) [Mass/Vol] Trace Abnormal NEGATIVE [facility] Comment on above: Performed By: #### L EB1641 #### [place] [address] RBC (U) [#/Vol] 4 - 5 Normal 1-3 [facility] Comment on above: Performed By: #### L MP0269 #### [place] [address] UR BACTERIA None Seen Normal NONE SEEN [facility] Comment on above: Performed By: #### L XE9149 #### [place] [address] UR BILIRUBIN Negative Normal NEGATIVE [facility] Comment on above: Performed By: #### L TZ3470 #### [facility] [address] [place] [address] UR BLOOD 3 + mg/dL Abnormal NEGATIVE [facility] Comment on above: Performed By: #### L VH5018 #### [facility] [address] [place] [address] UR CLARITY Clear Normal CLEAR [facility] Comment on above: Performed By: #### L PJ8840 #### [facility] [address] [place] [address] UR COLOR Yellow Normal YELLOW [facility] Comment on above: Performed By: #### L RD8069 #### [facility] [address] [place] [address] UR GLUCOSE Normal Normal NEGATIVE [facility] Comment on above: Performed By: #### L FN2186 #### [facility] [address] [place] [address] UR KETONE Negative Normal NEGATIVE [facility] Comment on above: Performed By: #### L FJ8491 #### [facility] [address] [place] [address] UR LEUKOCYTE Trace Abnormal NEGATIVE [facility] Comment on above: Performed By: #### L IL6935 #### [facility] [address] [place] [address] UR MUCOUS Rare Normal NONE SEEN [facility] Comment on above: Performed By: #### L BF8420 #### [facility] [address] [place] [address] UR NITRITE Negative Normal NEGATIVE [facility] Comment on above: Performed By: #### L VH8601 #### [facility] [address] [place] [address] UR PH 5.5 Normal 5.0-9.0 [facility] Comment on above: Performed By: #### L UC7970 #### [facility] [address] [place] [address] UR SP GRAVITY 1.027 Normal 1.005-1.030 [facility] Comment on above: Performed By: #### L IG7875 #### [facility] [address] [place] [address] UR SQUAMOUS EPI 1 - 3 Normal 3-5 [facility] Comment on above: Performed By: #### L CD0392 #### [facility] [address] [place] [address] UR UROBILINOGEN Normal Normal <2.0 [facility] Comment on above: Performed By: #### L OA5018 #### [facility] [address] [place] [address] UR WBC 11 - 20 Abnormal 1-3 [facility] Comment on above: Performed By: #### L JE8333 #### [facility] [address] [place] [address] VITAMIN B12on 03-17-2020 Cobalamin (Vitamin B12) [Mass/Vol] 262 pg/mL Normal 180-914 [facility] Comment on above: Performed By: #### L HX4272 #### [place] [address] ACETAMINOPHENon 03-16-2020 Acetaminophen [Mass/Vol] < 10.0 Normal [facility] Comment on above: Result Comment: THERAPEUTIC RANGE 10 TO 30 UG/ML TOXIC RANGE 4 HOURS POST-INGESTION >150 UG/ML 8 HOURS POST-INGESTION >75 UG/ML 12 HOURS POST-INGESTION >40 UG/ML Performed By: #### L LL7986, ZZI4914, ZSG7872, NHQ1706, ELY4780 #### [place] [address] CBCon 03-16-2020 Basophil Abs. 0.0 10*3/uL Normal 0.0-0.1 [facility] Comment on above: Performed By: #### L AS8524, TXX3982, HTB5021, IIQ1333, JTQ7397 #### [place] [address] Basophils/100 WBC (Bld) 0.6 % Normal 0.0-1.0 [facility] Comment on above: Performed By: #### L JO6309, EKB0642, PKW5189, JZE4579, CFG4215 #### [address] [place] [address] Differential type Auto Normal [facility] Comment on above: Performed By: #### L CF7297, IEM4793, AGY8281, ZCD5522, JZG0050 #### [facility] [address] [place] [address] Eosinophils (Bld) [#/Vol] 0.1 10*3/uL Normal 0.0-0.5 [facility] Comment on above: Performed By: #### L MJ6726, MEG7636, JNR5610, HLA9647, CFB2530 #### [address] [address] Eosinophils/100 WBC (Bld) 1.0 % Normal 0.3-5.0 [facility] Comment on above: Performed By: #### L CL4815, DFL4064, SZL0593, UXW9222, OJO5086 #### [place] [address] Erythrocyte distribution width (RBC) [Ratio] 14.9 % High 11.5-13.1 [facility] Comment on above: Performed By: #### L WD8518, UOO2853, AGK4803, SPA3855, FUK4642 #### [place] [address] Hematocrit (Bld) [Volume fraction] 38.2 % Normal 33.0-51.0 [facility] Comment on above: Performed By: #### L ZI7403, JCI3004, RWQ2005, UUH6191, DRS6943 #### [place] [address] Hemoglobin (Bld) [Mass/Vol] 12.8 g/dL Normal 12.0-16.0 [facility] Comment on above: Performed By: #### L UQ1700, MJK1095, JEI2180, UAM4903, HLL9048 #### [place] [address] Lymphocytes (Bld) [#/Vol] 2.6 10*3/uL Normal 1.1-5.0 [facility] Comment on above: Performed By: #### L YL9443, VKK5060, UFI3502, FJW2002, JJR7475 #### [place] [address] Lymphocytes/100 WBC (Bld) 33.7 % Normal 24.0-44.0 [facility] Comment on above: Performed By: #### L XC3390, WPW5633, TZW2596, CTB7839, JDZ6909 #### [place] [address] MCH (RBC) [Entitic mass] 28.9 pg Normal 26.0-34.0 [facility] Comment on above: Performed By: #### L XO8350, PEZ3245, YIX5627, QAU2238, NIV9935 #### [place] [address] MCHC (RBC) [Mass/Vol] 33.6 g/dL Normal 32.0-36.0 [facility] Comment on above: Performed By: #### L TH0814, HPO6644, LGK4214, XFQ4053, MYC9756 #### [place] [address] MCV (RBC) [Entitic vol] 85.8 fL Normal 80.0-100.0 [facility] Comment on above: Performed By: #### L QH4007, FSO8037, ROI8582, TMK2046, PKY4398 #### [place] [address] Monocytes (Bld) [#/Vol] 0.7 10*3/uL Normal 0.0-1.4 [facility] Comment on above: Performed By: #### L NE8898, DPC5763, PHC4017, KAR6092, CZD8352 #### [place] [address] Monocytes/100 WBC (Bld) 8.9 % Normal 2.1-13.3 [facility] Comment on above: Performed By: #### L MY4648, BGB8596, XWU3773, IOB5422, YTP0925 #### [place] [address] Neutrophils, Abs. 4.2 10*3/uL Normal 1.5-8.5 [facility] Comment on above: Performed By: #### L AT0248, ZGL1541, IPR7131, XQR8891, VEP9180 #### [place] [address] Neutrophils/100 WBC (Bld) 55.7 % Normal 35.0-66.0 [facility] Comment on above: Performed By: #### L LN1571, KNS4705, XLH8673, DJS4239, NSN4593 #### [place] [address] Platelet Cnt 318 10*3/uL Normal 150-450 [facility] Comment on above: Performed By: #### L RD5392, YYN1156, DXS4103, MFJ2106, CVI3690 #### [place] [address] Platelet mean volume (Bld) [Entitic vol] 7.5 fL Normal 6.5-10.0 [facility] Comment on above: Performed By: #### L ML0475, LHR2823, CII7506, XVI0105, YOP8345 #### [place] [address] RBC (Bld) [#/Vol] 4.45 10*6/uL Normal 4.00-5.20 [facility] Comment on above: Performed By: #### L ZV2601, YGN1020, JUX4326, MNG4049, PTZ2562 #### [place] [address] WBC (Bld) [#/Vol] 7.6 10*3/uL Normal 4.5-11.0 [facility] Comment on above: Performed By: #### L MB8426, QDN2274, UZL8956, GLW9011, YSJ1080 #### [place] [address] COMPREHENSIVE METABOLIC PANE Mark 03-16-2020 Albumin [Mass/Vol] 4.1 g/dL Normal 3.2-5.0 [facility] Comment on above: Performed By: #### L RC9655, ERU2813, ELT6064, INC6279, MJN5444 #### [place] [address] Albumin/Globulin [Mass ratio] 1.2 {ratio} Normal [facility] Comment on above: Performed By: #### L UA0349, NFB5323, UOT7111, QHM9766, XOB5925 #### [place] [address] ALP [Catalytic activity/Vol] 69 [iU]/L Normal 42-121 [facility] Comment on above: Performed By: #### L MD5051, QGO9265, KFQ1217, RUD5454, JAX6492 #### [place] [address] ALT [Catalytic activity/Vol] 14 [iU]/L Normal 10-60 [facility] Comment on above: Performed By: #### L YM6809, OLB0891, JZP8438, KKY1287, ITX2470 #### [place] [address] Anion gap [Moles/Vol] 8 mmol/L Normal [facility] Comment on above: Performed By: #### L IN3356, SBH1954, JRL0759, RED3321, LRY6086 #### [place] [address] AST [Catalytic activity/Vol] 16 [iU]/L Normal 10-42 [facility] Comment on above: Performed By: #### L LN5376, LKK8696, HRD7750, XPI8374, URW8145 #### [place] [address] B/C 21 High 10-20 [facility] Comment on above: Performed By: #### L WB8817, ZAA5185, AYM8032, FQZ7745, YBC4234 #### [facility] [address] [place] [address] Bilirubin.direct [Mass/Vol] 0.2 mg/dL Normal 0.2-1.0 [facility] Comment on above: Performed By: #### L BG7961, VDD6853, OJY0956, MNX7435, LMD9067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
--- NOTE | 2024-11-22 13:10 | RAD_ITS ---
PROCEDURE: KNEE 4 OR MORE VIEWS 11/22/2024 REASON FOR EXAM: PAIN, 3 WEEKS TECHNIQUE: KNEE 4 OR MORE VIEWS Laterality: Left COMPARISON: None FINDINGS: Bones: No acute bony abnormalities. Joints: Unremarkable. Effusion: No effusion. Soft tissues: No soft tissue abnormalities. Other: RAD/Knee 4 or More Views IMPRESSION: No acute osseous abnormalities. Reading Location: [id number]
[2024-11-22] MEDS: HYDROcodone Bitartrate/Apap 5/325 Tablet PO (13:22)
[2024-11-22 14:40] VITALS: BP 148/87; PULSE 81; RESP 18; TEMP 36.6; O2SAT 99
== END 2024-11-22 14:41 | disposition home or self-care (01) ==
PROVIDERS: Emergency Provider Emergency Medicine; PCP Nurse Practitioner Family; Visit Provider Emergency Medicine
DX: M17.12 Unilateral primary osteoarthritis, left knee (principal)
CPT/HCPCS: 73564; 99283

== ENCOUNTER 2024-11-24 13:20 | Emergency (ER) | payer MEDICAID, SELFPAY ==
[2024-11-24 13:21] VITALS: BP 152/86; PULSE 68; RESP 17; TEMP 36.3; O2SAT 100; BMI 43.2
--- OUTSIDE RECORDS SUMMARY | 2024-11-24 22:08 | XMS RPT_ITS | CCD ---
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 150-450 [facility] Comment on above: Performed By: #### L 501.9985, L3000.0375, L3890.6006, L500.4050, L509.8002, L500.4100 #### [facility] [address] [place], [address] RBC (Bld) [#/Vol] 4.40 10*6/uL Normal 4.2-5.4 [facility] Comment on above: Performed By: #### L 501.9985, L3000.0375, L3890.6006, L500.4050, L509.8002, L500.4100 #### [facility] [address] [place], [address] RDW SD 45.6 fl High 35.1-43.9 [facility] Comment on above: Performed By: #### L 501.9985, L3000.0375, L3890.6006, L500.4050, L509.8002, L500.4100 #### [facility] [address] [place], [address] WBC (Bld) [#/Vol] 4.4 10*3/uL Normal 4.4-11.0 [facility] Comment on above: Performed By: #### L 501.9985, L3000.0375, L3890.6006, L500.4050, L509.8002, L500.4100 #### [facility] [address] [place], [address] Carbon dioxide, total [Moles /volume] in Central venous bloodOrdered By: Kayla Diego on 10-15-2024 CO2 [Moles/Vol] 26.1 mmol/L 21.0-32.0 [facility] Cervical or vaginal specimen microscopic examination by liquid based cytology (reportOrdered By: Kayla Diego on 10-15-2024 Cytology report Cyto stain.thin prep Doc (Cvx/Vag) Comment . [facility] Comment on above: Criteria not met, HP V Genotype not performed.Performed at: - [address] [id number] Director: Liz Brown MD, Phone: [phone] at: =[facility] [id number] Director: Liz Brown MD, Phone: [phone] Cervical or vagninal specime n microscopic examination by cytology stain (reported asOrdered By: Kayla Diego on 10-15-2024 Cytology report Cyto stain Doc (Cvx/Vag) Comment . [facility] Comment on above: The Pap smear is a s creening test designed to aid in thedetection of premalignant and malignant conditions of theuterine cervix. It is not a diagnostic procedure andshould not be used as the sole means of detecting cervicalcancer. Both false-positive and false-negative reports dooccur. Chloride assayOrdered By: As brad Diego on 10-15-2024 Chloride [Moles/Vol] 102 mmol/L 98-108 [facility] Comprehensive Metabolic Prof ilon 10-15-2024 Albumin [Mass/Vol] 3.8 g/dL Normal 3.5-5.0 [facility] Comment on above: Performed By: #### L 501.9985, L3000.0375, L3890.6006, L500.4050, L509.8002, L500.4100 #### [facility] [address] [place], [address] Albumin/Globulin [Mass ratio] 1.1 {ratio} Normal 0.9-2.4 [facility] Comment on above: Performed By: #### L 501.9985, L3000.0375, L3890.6006, L500.4050, L509.8002, L500.4100 #### [facility] [address] [place], [address] ALK PHOS 77 U/L Normal 35-104 [facility] Comment on above: Performed By: #### L 501.9985, L3000.0375, L3890.6006, L500.4050, L509.8002, L500.4100 #### [facility] [address] [place], [address] ALT [Catalytic activity/Vol] 18 U/L Normal <=34 [facility] Comment on above: Performed By: #### L 501.9985, L3000.0375, L3890.6006, L500.4050, L509.8002, L500.4100 #### [facility] [address] [place], [address] AST [Catalytic activity/Vol] 25 U/L Normal <=31 [facility] Comment on above: Performed By: #### L 501.9985, L3000.0375, L3890.6006, L500.4050, L509.8002, L500.4100 #### [facility] [address] [place], [address] Bilirubin [Mass/Vol] 0.27 mg/dL Normal 0.00-1.30 [facility] Comment on above: Performed By: #### L 501.9985, L3000.0375, L3890.6006, L500.4050, L509.8002, L500.4100 #### [facility] [address] [place], [address] BUN/CRE 11.6 RATIO Normal 10-20 [facility] Comment on above: Performed By: #### L 501.9985, L3000.0375, L3890.6006, L500.4050, L509.8002, L500.4100 #### [facility] [address] [place], [address] Calcium [Mass/Vol] 9.5 mg/dL Normal 7.6-11.0 [facility] Comment on above: Performed By: #### L 501.9985, L3000.0375, L3890.6006, L500.4050, L509.8002, L500.4100 #### [facility] [address] [place], [address] Chloride [Moles/Vol] 102 mmol/L Normal 98-108 [facility] Comment on above: Performed By: #### L 501.9985, L3000.0375, L3890.6006, L500.4050, L509.8002, L500.4100 #### [facility] [address] [place], [address] CO2 [Moles/Vol] 26.1 mmol/L Normal 21.0-32.0 [facility] Comment on above: Performed By: #### L 501.9985, L3000.0375, L3890.6006, L500.4050, L509.8002, L500.4100 #### [facility] [address] [place], [place], [id number] (603) Creatinine [Mass/Vol] 0.72 mg/dL Normal 0.70-1.20 [facility] Comment on above: Performed By: #### L 501.9985, L3000.0375, L3890.6006, L500.4050, L509.8002, L500.4100 #### [facility] [address] [place], [place], [id number] (056) GAP 10 Normal 5-15 [facility] Comment on above: Performed By: #### L 501.9985, L3000.0375, L3890.6006, L500.4050, L509.8002, L500.4100 #### [facility] [address] [place], [place], [address] ([address] GFR/1.73 sq M.predicted among non-blacks MDRD (S/P/Bld) [Vol rate/Area] 104 mL/min/{1.73_m2} Normal >60 [facility] Comment on above: Result Comment: mL/m in/1.73m2 CKD-EPI Creatinine Equation (2020) Performed By: #### L 501.9985, L3000.0375, L3890.6006, L500.4050, L509.8002, L500.4100 #### [facility] [address] [place], [address] Globulin (S) [Mass/Vol] 3.5 g/dL Normal 2.2-4.2 [facility] Comment on above: Performed By: #### L 501.9985, L3000.0375, L3890.6006, L500.4050, L509.8002, L500.4100 #### [facility] [address] [place], [address] Glucose [Mass/Vol] 110 mg/dL High 70-99 [facility] Comment on above: Performed By: #### L 501.9985, L3000.0375, L3890.6006, L500.4050, L509.8002, L500.4100 #### [facility] [address] [place], [address] Potassium [Moles/Vol] 4.2 mmol/L Normal 3.3-5.1 [facility] Comment on above: Performed By: #### L 501.9985, L3000.0375, L3890.6006, L500.4050, L509.8002, L500.4100 #### [facility] [address] [place], [address] Sodium [Moles/Vol] 138 mmol/L Normal 133-145 [facility] Comment on above: Performed By: #### L 501.9985, L3000.0375, L3890.6006, L500.4050, L509.8002, L500.4100 #### [facility] [address] [place], [address] T PROT 7.3 g/dL Normal 5.9-8.4 [facility] Comment on above: Performed By: #### L 501.9985, L3000.0375, L3890.6006, L500.4050, L509.8002, L500.4100 #### [facility] [address] [place], [place], [address] Urea nitrogen [Mass/Vol] 8 mg/dL Normal 4-19 [facility] Comment on above: Performed By: #### L 501.9985, L3000.0375, L3890.6006, L500.4050, L509.8002, L500.4100 #### [facility] [address] [place], [address] Detection in cervical specim en of any of human papilloma virus (HPV) 16, 18, 31, 33,Ordered By: Kayla Diego on 10-15-2024 HPV 16+18+31+33+35+39+45+ 51+52+56+58+59+66+68 DNA Probe+sig amp Ql (Cvx) Negative Negative [facility] Comment on above: This nucleic acid am plification test detects fourteen high- risk HPV types (16,18,31,33,35,39,45,51,52,56,58,59,66,68)without differentiation. Eosinophil percentageOrdered By: Kayla Diego on 10-15-2024 Eosinophils/100 WBC (Bld) 1.4 % 0-5 [facility] Erythrocyte distribution wid th ratioOrdered By: Kayla Diego on 10-15-2024 Erythrocyte distribution width (RBC) [Ratio] 13.7 % 11.6-14.6 [facility] Erythrocyte distribution wid th standard deviationOrdered By: Kayla Diego on 10-15-2024 Erythrocyte distribution width (RBC) [Ratio] 45.6 fl High 35.1-43.9 [facility] Glomerular filtration rate ( GFR) estimation/1.73 sq m using serum, plasma, or whole bOrdered By: Kayla Diego on 10-15-2024 GFR/1.73 sq M.predicted among non-blacks MDRD (S/P/Bld) [Vol rate/Area] 104 mL/min/{1.73_m2} >60 [facility] Comment on above: mL/min/1.73m2 CKD-EP I Creatinine Equation (2020) Hematocrit Auto (Bld) [Volum e fraction]Ordered By: Kayla Diego on 10-15-2024 Hematocrit (Bld) [Volume fraction] 39.7 % 37-47 [facility] Hemoglobin measurementOrdere d By: Kayla Diego on 10-15-2024 Hemoglobin (Bld) [Mass/Vol] 12.8 g/dL 12.0-15.0 [facility] Immature granulocytes/100 WB C Auto (Bld)Ordered By: Kayla Diego on 10-15-2024 Immature granulocytes/100 WBC (Bld) 0.500 % 0.0-0.9 [facility] Comment on above: IG% - Immature Granu locytes (promyelocytes, myelocytes and metamyelocytes) > 1% indicates that a LEFT SHIFT is Present. Ketones Test strip Ql (U)Ord ered By: Kayla Diego on 10-15-2024 Ketones Ql (U) Negative Negative [facility] L503.7505on 10-15-2024 Natriuretic peptide B (Bld) [Mass/Vol] 103 pg/mL Normal <=450 [facility] Comment on above: Result Comment: Hear t Failure Unlikely: < 300 pg/mL Heart Failure Likely < 50 Years: > 450 pg/mL 50-75 Years: > 900 pg/mL >75 Years: > 1800 pg/mL Performed By: #### L 501.9985, L3000.0375, L3890.6006, L500.4050, L509.8002, L500.4100 #### [facility] [address] [place] [address]. [place], [address] Laboratory - Chemistry and C hemistry - challengeOrdered By: Kayla Diego on 10-15-2024 AST [Catalytic activity/Vol] 25 U/L <32 [facility] - CytologyOrdered By: Kayla Diego on 10-15-2024 Residential Sales Representative Cyto stain Nom (Cvx/Vag) [ID] Comment . [facility] Comment on above: Adalid Landa Cyt ologist (ASCP) Laboratory - Miscellaneous t estsOrdered By: Kayla Diego on 10-15-2024 Service comment (Unsp spec) [Interp] . . [facility] MCV (mean corpuscular volume ) determinationOrdered By: Kayla Diego on 10-15-2024 MCV (RBC) [Entitic vol] 90.2 fL 81-99 [facility] Mean corpuscular hemoglobin (MCH) determinationOrdered By: Kayla Diego on 10-15-2024 MCH (RBC) [Entitic mass] 29.1 pg 27.0-32.0 [facility] Mean corpuscular hemoglobin concentration (MCHC) determinationOrdered By: Kayla Diego on 10-15-2024 MCHC (RBC) [Mass/Vol] 32.2 g/dL 32-36 [facility] Mean platelet volume determi nationOrdered By: Kayla Diego on 10-15-2024 Platelet mean volume (Bld) [Entitic vol] 9.6 fL 6.2-12.0 [facility] Microscopic analysis of urin e for red blood cells (RBC)Ordered By: Kayla Diego on 10-15-2024 Microscopic analysis of urine for red blood cells (RBC) 0 SEEN /hpf 0-5 [facility] Monocyte percentageOrdered B y: Kayla Diego on 10-15-2024 Monocytes/100 WBC (Bld) 9.2 % 0-10 [facility] Mucus LM Ql (Urine sed)Order ed By: Kayla Diego on 10-15-2024 Mucus Ql (Urine sed) 0 SEEN /hpf [facility] Natriuretic peptide.B prohor vee N-Terminal [Mass/volume] in Serum or PlasmaOrdered By: Kayla Diego 10-15-2024 Natriuretic peptide.B prohormone N-Terminal [Mass/Vol] 103 pg/mL <450 [facility] Comment on above: Heart Failure Unlike ly: < 300 pg/mLHeart Failure Likely< 50 Years: > 450 pg/mL50-75 Years: > 900 pg/mL>75 Years: > 1800 pg/mL Neutrophil percentageOrdered By: Kayla Diego on 10-15-2024 Neutrophils/100 WBC (Bld) 48.9 % 47-70 [facility] Nitrite Test strip Ql (U)Ord ered By: Kayla Diego on 10-15-2024 Nitrite Ql (U) Negative Negative [facility] No Panel InformationOrdered By: Kayla Diego on 10-15-2024 Pap Smear Specimen Adequacy Comment . [facility] Comment on above: Satisfactory for jeannie luation. Endocervical and/or squamous metaplasticcells (endocervical component) are present. Nucleated red blood cell per centageOrdered By: Kayla Diego on 10-15-2024 Nucleated RBC/100 WBC (Bld) [Ratio] 0 % 0-5 [facility] Platelet countOrdered By: Janie Diego on 10-15-2024 Platelets (Bld) [#/Vol] 253 10*3/uL 150-450 [facility] Potassium measurement (mass/ volume)Ordered By: Kayla Diego on 10-15-2024 Potassium (Unsp spec) [Mass/Vol] 4.2 mmol/L 3.3-5.1 [facility] Protein Test strip Ql (U)Ord ered By: Kayla Diego on 10-15-2024 Protein Ql (U) Negative Negative [facility] RBC Auto (Bld) [#/Vol]Ordere d By: Kayla Diego on 10-15-2024 RBC (Bld) [#/Vol] 4.40 10*6/uL 4.2-5.4 [facility] Serum creatinine measurement (mass/volume)Ordered By: Kayla Diego on 10-15-2024 Creatinine [Mass/Vol] 0.72 mg/dL 0.70-1.20 [facility] Serum globulin measurementOr dered By: Kayla Diego on 10-15-2024 Globulin (S) [Mass/Vol] 3.5 g/dL 2.2-4.2 [facility] Serum glucose measurement (m ass/volume)Ordered By: Kayla Diego on 10-15-2024 Glucose [Mass/Vol] 110 mg/dL High 70-99 [facility] Serum or plasma alanine valdivia otransferase (ALT) measurementOrdered By: Kayla Diego on 10-15-2024 ALT [Catalytic activity/Vol] 18 U/L <35 [facility] Serum or plasma albumin marilee urement (mass/volume)Ordered By: Kayla Diego on 10-15-2024 Albumin [Mass/Vol] 3.8 g/dL 3.5-5.0 [facility] Serum or plasma albumin/glob ulin mass ratioOrdered By: Kayla Diego on 10-15-2024 Albumin/Globulin [Mass ratio] 1.1 {ratio} 0.9-2.4 [facility] Serum or plasma alkaline emerson sphatase measurementOrdered By: Kayla Diego on 10-15-2024 ALP [Catalytic activity/Vol] 77 U/L 35-104 [facility] Serum or plasma calcium marilee urement (mass/volume)Ordered By: Kayla Diego on 10-15-2024 Calcium [Mass/Vol] 9.5 mg/dL 7.6-11.0 [facility] Serum or plasma urea nitroge n measurement (mass/volume)Ordered By: Kayla Diego on 10-15-2024 Urea nitrogen [Mass/Vol] 8 mg/dL 4-19 [facility] Sodium levelOrdered By: Amaris Diego on 10-15-2024 Sodium [Moles/Vol] 138 mmol/L 133-145 [facility] Squamous epithelial cells de tection in urine sediment by light microscopyOrdered By: Kayla Diego on 10-15-2024 Epithelial cells.squamous LM Ql (Urine sed) 0-5 SEEN /hpf - [facility] Total proteinOrdered By: Rey Diego on 10-15-2024 Protein [Mass/Vol] 7.3 g/dL 5.9-8.4 [facility] Urinalysis, Completeon 10-15 EPI,SQUAMOUS 0-5 SEEN Normal 5-10 [facility] Comment on above: Order Comment: CLEAN CATCH Performed By: #### L 501.9985, L3000.0375, L3890.6006, L500.4050, L509.8002, L500.4100 #### [facility] [address] [place], [address] WBC 0-5 SEEN Normal 0-5 [facility] Comment on above: Order Comment: CLEAN CATCH Performed By: #### L 501.9985, L3000.0375, L3890.6006, L500.4050, L509.8002, L500.4100 #### [facility] [address] [place], [address] BACTERIA 0 SEEN Normal None Seen [facility] Comment on above: Order Comment: CLEAN CATCH Performed By: #### L 501.9985, L3000.0375, L3890.6006, L500.4050, L509.8002, L500.4100 #### [facility] [address] [place], [address] Mucus Ql (Urine sed) 0 SEEN Normal [facility] Comment on above: Order Comment: CLEAN CATCH Performed By: #### L 501.9985, L3000.0375, L3890.6006, L500.4050, L509.8002, L500.4100 #### [facility] [address] [place], [address] RBC 0 SEEN Normal 0-5 [facility] Comment on above: Order Comment: CLEAN CATCH Performed By: #### L 501.9985, L3000.0375, L3890.6006, L500.4050, L509.8002, L500.4100 #### [facility] [address] [place], [address] Urine clarityOrdered By: Rey Diego on 10-15-2024 Clarity (U) Clear Clear [facility] Urine color determinationOrd ered By: Kayla Diego on 10-15-2024 Color (U) Yellow Yellow [facility] Urine cultureOrdered By: Rey Diego on 10-15-2024 Bacteria identified Cx Nom (U) Positive Abnormal [facility] Urine glucose detectionOrder ed By: Kayla Diego on 10-15-2024 Glucose Ql (U) Normal mg/dl Normal [facility] Urine leukocyte esterase det ection by dipstickOrdered By: Kayla Diego on 10-15-2024 Leukocyte esterase Test strip Ql (U) Negative Negative [facility] Urine pHOrdered By: Kayla gonzales on 10-15-2024 pH (U) 7.0 [pH] 5.0 - 8.0 [facility] Urine sediment bacteria coun t by microscopy (number/high power field)Ordered By: Kayla Diego on 10-15-2024 Bacteria LM.HPF (Urine sed) [#/Area] 0 /[HPF] None Seen [facility] Urine specific gravity measu rementOrdered By: Kayla Diego on 10-15-2024 Specific gravity (U) [Rel density] 1.010 1.002-1.030 [facility] Urine urobilinogen measureme ntOrdered By: Kayladallas Diego on 10-15-2024 Urobilinogen Ql (U) 1 mg/dl High Normal [facility] White blood cell (WBC) count Ordered By: Kayla Diego on 10-15-2024 WBC (Bld) [#/Vol] 4.4 10*3/uL 4.4-11.0 [facility] White blood cell countOrdere d By: Kayla Diego on 10-15-2024 White blood cell count 0-5 SEEN /hpf 0-5 [facility] Hepatitis Panel Acuteon 09-29 HCV Interpretat Comment Normal . [facility] Comment on above: Result Comment: Posi tive HCV antibody screen without the presence of HCV RNA is consistent with a resolved past infection or a false positive HCV antibody. Consider repeat testing after one month. Performed at: [facility] [id number] Beam Doffer: Александр Florian PhD, Phone: [phone] Performed at: [facility] [id number] Beam Doffer: Radha Roche MD, Phone: [phone] Performed By: #### L 501.9945, L3000.0375, L3890.6002, L500.7060, L509.8202, L500.4100 #### [facility] [address] [place], [address] HCV log 10 TNP Normal . [facility] Comment on above: Performed By: #### L 501.9985, L3000.0375, L3890.6006, L500.4050, L509.8002, L500.4100 #### [facility] [address] [place], [address] HEP B CORE,IgM Negative Normal Negative [facility] Comment on above: Performed By: #### L 501.9985, L3000.0375, L3890.6006, L500.4050, L509.8002, L500.4100 #### [facility] [address] [place], [address] HEP B SURF AG Negative Normal Negative [facility] Comment on above: Performed By: #### L 501.9985, L3000.0375, L3890.6006, L500.4050, L509.8002, L500.4100 #### [facility] [address] [place], [address] Hep C Quant Not detected Normal . [facility] Comment on above: Performed By: #### L 501.9985, L3000.0375, L3890.6006, L500.4050, L509.8002, L500.4100 #### [facility] [address] [place], [address] HEP C VIRUS AB Reactive Abnormal Non Reactive [facility] Comment on above: Result Comment: Clie nt Requested Flag Performed By: #### L 501.9985, L3000.0375, L3890.6006, L500.4050, L509.8002, L500.4100 #### [facility] [address] [place], [address] HEPATITIS A-IgM Negative Normal Negative [facility] Comment on above: Result Comment: A ne gative anti-HAV IgM result suggests no recent or current HAV infection. Performed By: #### L 501.9985, L3000.0375, L3890.6006, L500.4050, L509.8002, L500.4100 #### [facility] [address] [place], [place], [id number] Test Informatio Comment Normal . [facility] Comment on above: Result Comment: The quantitative range of this assay is 15 IU/mL to 100 million IU/mL. Performed By: #### L 501.9985, L3000.0375, L3890.6006, L500.4050, L509.8002, L500.4100 #### [facility] [address] [place], [place], [address] Anion gap in Serum or Plasma Ordered By: Kayla Diego on 10-06-2024 Anion gap [Moles/Vol] 14 mmol/L 5-15 [facility] BUN/creatinine ratioOrdered By: Kayla Diego on 10-06-2024 Urea nitrogen/Creatinine [Mass ratio] 17.2 mg/mg 10-20 [facility] Bilirubin, totalOrdered By: Kayla Diego on 10-06-2024 Bilirubin [Mass/Vol] 0.45 mg/dL 0.00-1.30 [facility] Calculated very low density lipoprotein (VLDL) cholesterol measurementOrdered By: Kayla Diego on 10-06-2024 Calculated very low density lipoprotein (VLDL) cholesterol measurement 28 mg/dL 5-40 [facility] Carbon dioxide, total [Moles /volume] in Central venous bloodOrdered By: Kayla Diego on 10-06-2024 CO2 [Moles/Vol] 22.2 mmol/L 21.0-32.0 [facility] Chloride assayOrdered By: Janie Diego on 10-06-2024 Chloride [Moles/Vol] 103 mmol/L 98-108 [facility] Comprehensive Metabolic Prof ilon 10-06-2024 Albumin [Mass/Vol] 4.0 g/dL Normal 3.5-5.0 [facility] Comment on above: Performed By: #### L 501.9985, L3000.0375, L3890.6006, L500.4050, L509.8002, L500.4100 #### [facility] [address] [place], [address] Albumin/Globulin [Mass ratio] 1.0 {ratio} Normal 0.9-2.4 [facility] Comment on above: Performed By: #### L 501.9985, L3000.0375, L3890.6006, L500.4050, L509.8002, L500.4100 #### [facility] [address] [place], [address] ALK PHOS 83 U/L Normal 35-104 [facility] Comment on above: Performed By: #### L 501.9985, L3000.0375, L3890.6006, L500.4050, L509.8002, L500.4100 #### [facility] [address] [place], [address] ALT [Catalytic activity/Vol] 24 U/L Normal <=34 [facility] Comment on above: Performed By: #### L 501.9985, L3000.0375, L3890.6006, L500.4050, L509.8002, L500.4100 #### [facility] [address] [place], [address] AST [Catalytic activity/Vol] 26 U/L Normal <=31 [facility] Comment on above: Performed By: #### L 501.9985, L3000.0375, L3890.6006, L500.4050, L509.8002, L500.4100 #### [facility] [address] [place], [address] Bilirubin [Mass/Vol] 0.45 mg/dL Normal 0.00-1.30 [facility] Comment on above: Performed By: #### L 501.9985, L3000.0375, L3890.6006, L500.4050, L509.8002, L500.4100 #### [facility] [address] [place], [address] BUN/CRE 17.2 RATIO Normal 10-20 [facility] Comment on above: Performed By: #### L 501.9985, L3000.0375, L3890.6006, L500.4050, L509.8002, L500.4100 #### [facility] [address] [place], [address] Calcium [Mass/Vol] 9.2 mg/dL Normal 7.6-11.0 [facility] Comment on above: Performed By: #### L 501.9985, L3000.0375, L3890.6006, L500.4050, L509.8002, L500.4100 #### [facility] [address] [place], [address] Chloride [Moles/Vol] 103 mmol/L Normal 98-108 [facility] Comment on above: Performed By: #### L 501.9985, L3000.0375, L3890.6006, L500.4050, L509.8002, L500.4100 #### [facility] [address] [place], [address] CO2 [Moles/Vol] 22.2 mmol/L Normal 21.0-32.0 [facility] Comment on above: Performed By: #### L 501.9985, L3000.0375, L3890.6006, L500.4050, L509.8002, L500.4100 #### [facility] [address] [place], [address] Creatinine [Mass/Vol] 0.88 mg/dL Normal 0.70-1.20 [facility] Comment on above: Performed By: #### L 501.9985, L3000.0375, L3890.6006, L500.4050, L509.8002, L500.4100 #### [facility] [address] [place], [address] GAP 14 Normal 5-15 [facility] Comment on above: Performed By: #### L 501.9985, L3000.0375, L3890.6006, L500.4050, L509.8002, L500.4100 #### [facility] [address] [place], [address] GFR/1.73 sq M.predicted among non-blacks MDRD (S/P/Bld) [Vol rate/Area] 81 mL/min/{1.73_m2} Normal >60 [facility] Comment on above: Result Comment: mL/m in/1.73m2 CKD-EPI Creatinine Equation (2020) Performed By: #### L 501.9985, L3000.0375, L3890.6006, L500.4050, L509.8002, L500.4100 #### [facility] [address] [place], [address] Globulin (S) [Mass/Vol] 3.8 g/dL Normal 2.2-4.2 [facility] Comment on above: Performed By: #### L 501.9985, L3000.0375, L3890.6006, L500.4050, L509.8002, L500.4100 #### [facility] [address] [place], [address] Glucose [Mass/Vol] 96 mg/dL Normal 70-99 [facility] Comment on above: Performed By: #### L 501.9985, L3000.0375, L3890.6006, L500.4050, L509.8002, L500.4100 #### [facility] [address] [place], [address] Potassium [Moles/Vol] 4.3 mmol/L Normal 3.3-5.1 [facility] Comment on above: Performed By: #### L 501.9985, L3000.0375, L3890.6006, L500.4050, L509.8002, L500.4100 #### [facility] [address] [place], [address] Sodium [Moles/Vol] 140 mmol/L Normal 133-145 [facility] Comment on above: Performed By: #### L 501.9985, L3000.0375, L3890.6006, L500.4050, L509.8002, L500.4100 #### [facility] [address] [place], [address] T PROT 7.7 g/dL Normal 5.9-8.4 [facility] Comment on above: Performed By: #### L 501.9985, L3000.0375, L3890.6006, L500.4050, L509.8002, L500.4100 #### [facility] [address] [place], [address] Urea nitrogen [Mass/Vol] 15 mg/dL Normal 4-19 [facility] Comment on above: Performed By: #### L 501.9985, L3000.0375, L3890.6006, L500.4050, L509.8002, L500.4100 #### [facility] [address] [place], [address] Gastroenterology Visit Repor ton 10-06-2024 Gastroenterology Visit Report [facility] [address] [place] [address] OFFICE VISIT Date of Service: 10/06/24 MR#: [id number] Acct: [id number] Name: LINDA BRUMFIELD Rep #: [id number] : 1975 Provider: LOLA plata Age/Sex: 48/F [place] [facility] [place]: Signed Intake Vital Signs 10/06/24 09:46 Height 5 ft 7 in Weight: 269 lb 6 oz BMI 42.2 BP 128/69 H Respiration 18 Pulse 79 Temp 97.5 F L Pulse Oximetry (%) 97 Oxygen Delivery Method room air Intake Visit Reasons: CONSTIPATION Chief Complaint: constipation Tobacco Drummer Required: No Accompanied by: Self Is patient in pain?: Yes Allergies erythromycin base (From E-Mycin) Allergy (Mild, Verified 10/06/24 09:44) chest pain and swelling hydroxyzine Allergy (Mild, Verified 10/06/24 09:44) elevates heart rate Medications ???Medication ???Instructions ???Recorded ???Confirmed ???Type all jeb fizzy melts PO PRN 10/06/24 History hydrocortisone 2.5 % topical cream 1 applic ND QD-BID PRN rectal pa in 10/06/24 10/06/24 [...] mg PO QHS 10/06/24 10/06/24 Hist ory PFSH Medical History (Updated 10/06/24 @ 13:53 by LOLA Calero) Anxiety disorder Hallucinations Insomnia UTI (urinary tract [...] month ago - just moved here from [facility] - Marijuana use intermittent - reports a [...] (more content not included)... Normal [facility] Glomerular filtration rate ( GFR) estimation/1.73 sq m using serum, plasma, or whole bOrdered By: Kayla Diego on 10-06-2024 GFR/1.73 sq M.predicted among non-blacks MDRD (S/P/Bld) [Vol rate/Area] 81 mL/min/{1.73_m2} >60 [facility] Comment on above: mL/min/1.73m2 CKD-EP I Creatinine Equation (2020) HIVon 10-06-2024 HIV Non-Reactive Normal Nonreactive [facility] Comment on above: Result Comment: Non- Reactive Reactive Repeatedly reactive samples must be confirmed according to CDC recommended confirmatory algorithms. The subresults for either HIVAG or AHIV can be used as an aid in the selection of the confirmation algorithm for reactive samples. Send out specimens with Reactive results to [facility] for confirmation. Order the HIV antibody detection and differentiation: #[id number] Performed By: #### L 501.9985, L3000.0375, L3890.6006, L500.4050, L509.8002, L500.4100 #### [facility] [address] [place], [address] Hemoglobin A1con 10-06-2024 HbA1c (Bld) [Mass fraction] 5.7 % Normal <=5.6 [facility] Comment on above: Result Comment: Norm al < 5.7 % Prediabetic 5.7 - 6.4 % Diabetic >or= 6.5 % Please note range changes. Performed By: #### L 501.9985, L3000.0375, L3890.6006, L500.4050, L509.8002, L500.4100 #### [facility] [address] [place], [address] Hemoglobin A1c percentageOrd ered By: Kayla Diego on 10-06-2024 HbA1c (Bld) [Mass fraction] 5.7 % <5.7 [facility] Comment on above: Normal < 5.7 % Predi abetic 5.7 - 6.4 % Diabetic >or= 6.5 % Please note range changes. LDL calc ser/plasOrdered By: Kayla Diego on 10-06-2024 Cholesterol in LDL [Mass/Vol] 130 mg/dL [facility] Comment on above: Ohxamcryob=718-535 m g/dL & Higher Glag=007 mg/dL or greater Laboratory - Chemistry and C hemistry - challengeOrdered By: Kayla Diego on 10-06-2024 AST [Catalytic activity/Vol] 26 U/L <32 [facility] Lipid Profileon 10-06-2024 CHOL:HDL 3.79 Normal [facility] Comment on above: Performed By: #### L 501.9985, L3000.0375, L3890.6006, L500.4050, L509.8002, L500.4100 #### [facility] [address] [place], [address] Cholesterol [Mass/Vol] 215 mg/dL High <=200 [facility] Comment on above: Result Comment: Chol esterol level, Desirable <200 mg/dL Borderline high cholesterol 200-239 mg/dL High cholesterol >=240 mg/dL Recommendations of the NCEP Adult Treatment Panel for the following risk-cutoff thresholds for the [place] population. Performed By: #### L 501.9985, L3000.0375, L3890.6006, L500.4050, L509.8002, L500.4100 #### [facility] [address] [place], [address] Cholesterol in HDL [Mass/Vol] 57 mg/dL Normal [facility] Comment on above: Result Comment: Margaret onal Cholesterol Education Program (NCEP) guidelines: <40 mg/dL: Low HDL-cholesterol (major risk factor for CHD) >= 60 mg/dL: High HDL-cholesterol (negative risk factor for CHD) HDL-cholesterol is affected by a number of factors, e.g. smoking, exercise, hormones, sex and age. Performed By: #### L 501.9985, L3000.0375, L3890.6006, L500.4050, L509.8002, L500.4100 #### [facility] [address] [place], [address] Cholesterol in LDL [Mass/Vol] 130 mg/dL Normal [facility] Comment on above: Result Comment: Bord eraomx=137-589 mg/dL Higher Kzyj=491 mg/dL or greater Performed By: #### L 501.9985, L3000.0375, L3890.6006, L500.4050, L509.8002, L500.4100 #### [facility] [address] [place], [address] Cholesterol in VLDL [Mass/Vol] 28 mg/dL Normal 5-40 [facility] Comment on above: Performed By: #### L 501.9985, L3000.0375, L3890.6006, L500.4050, L509.8002, L500.4100 #### [facility] [address] [place], [address] Triglyceride [Mass/Vol] 142 mg/dL Normal [facility] Comment on above: Result Comment: The drugs N-Acetylcysteine and Metamizole may falsely depress this assay. Normal range: <150 mg/dL Borderline High: 150-199 mg/dL High: 200-499 mg/dL Very High: >500 mg/dL Performed By: #### L 501.9985, L3000.0375, L3890.6006, L500.4050, L509.8002, L500.4100 #### [facility] [address] [place], [address] No Panel InformationOrdered By: Kayla Diego on 10-06-2024 HCV log10 Confirmation TNP [facility] Comment on above: Test not performed Hepatitis C RNA Qnt (PCR) Test Info Comment . [facility] Comment on above: The quantitative ran ge of this assay is 15 IU/mL to 100million IU/mL. Hepatitis C Virus Note Comment . [facility] Comment on above: Positive HCV antibod y screen without the presence of HCVRNA is consistent with a resolved past infection or a falsepositive HCV antibody. Consider repeat testing after onemonth.Performed at: - [facility] [id number] [place], [place] [id number] Director: Александр Florian PhD, Phone: [phone] at: [facility] [address] [id number] Director: Radha Roche MD, Phone: [phone] HIV (1&2) Antibody Non-Reactive Nonreactive [facility] Comment on above: Non-ReactiveReactive Repeatedly reactive samples must be confirmed according to CDC recommended confirmatory algorithms. The subresults for either HIVAG or AHIV can be used as an aid in the selection of the confirmation algorithm for reactive samples.Send out specimens with Reactive results to [facility] for confirmation.Order the HIV antibody detection and differentiation: #[id number] Potassium measurement (mass/ volume)Ordered By: Kayla Diego on 10-06-2024 Potassium (Unsp spec) [Mass/Vol] 4.3 mmol/L 3.3-5.1 [facility] Screening total cholesterol/ high density lipoprotein (HDL) cholesterol ratioOrdered By: Kayla Diego on 10-06-2024 Cholesterol.total/Cho lesterol in HDL [Mass ratio] 3.79 {ratio} [facility] Serum creatinine measurement (mass/volume)Ordered By: Kayla Diego on 10-06-2024 Creatinine [Mass/Vol] 0.88 mg/dL 0.70-1.20 [facility] Serum globulin measurementOr dered By: Kayla Diego on 10-06-2024 Globulin (S) [Mass/Vol] 3.8 g/dL 2.2-4.2 [facility] Serum glucose measurement (m ass/volume)Ordered By: Kayla Diego on 10-06-2024 Glucose [Mass/Vol] 96 mg/dL 70-99 [facility] Serum or plasma alanine valdivia otransferase (ALT) measurementOrdered By: Kayla Diego on 10-06-2024 ALT [Catalytic activity/Vol] 24 U/L <35 [facility] Serum or plasma albumin marilee urement (mass/volume)Ordered By: Kayla Diego on 10-06-2024 Albumin [Mass/Vol] 4.0 g/dL 3.5-5.0 [facility] Serum or plasma albumin/glob ulin mass ratioOrdered By: Kayla Diego on 10-06-2024 Albumin/Globulin [Mass ratio] 1.0 {ratio} 0.9-2.4 [facility] Serum or plasma alkaline emerson sphatase measurementOrdered By: Kayla Diego on 10-06-2024 ALP [Catalytic activity/Vol] 83 U/L 35-104 [facility] Serum or plasma calcium marilee urement (mass/volume)Ordered By: Kayla Diego on 10-06-2024 Calcium [Mass/Vol] 9.2 mg/dL 7.6-11.0 [facility] Serum or plasma cholesterol in HDL measurement (mass/volume)Ordered By: Kayla Diego on 10-06-2024 Cholesterol in HDL [Mass/Vol] 57 mg/dL >40 [facility] Comment on above: National Cholesterol Education Program (NCEP) guidelines:<40 mg/dL: Low HDL-cholesterol (major risk factor for CHD)>= 60 mg/dL: High HDL-cholesterol (negative risk factor for CHD)HDL-cholesterol is affected by a number of factors, e.g. smoking, exercise, hormones, sex and age. Serum or plasma cholesterol measurement (mass/volume)Ordered By: Kayla Diego on 10-06-2024 Cholesterol [Mass/Vol] 215 mg/dL High <201 [facility] Comment on above: Cholesterol level, D esirable <200 mg/dLBorderline high cholesterol 200-239 mg/dLHigh cholesterol >=240 mg/dLRecommendations of the NCEP Adult Treatment Panel for the following risk-cutoff thresholds for the [place] population. Serum or plasma hepatitis B virus surface antigen detection by immunoassayOrdered By: Kayla Diego on 10-06-2024 HBV surface Ag IA Ql Negative Negative [facility] Serum or plasma urea nitroge n measurement (mass/volume)Ordered By: Kayla Diego on 10-06-2024 Urea nitrogen [Mass/Vol] 15 mg/dL 4-19 [facility] Sodium levelOrdered By: Amaris Diego on 10-06-2024 Sodium [Moles/Vol] 140 mmol/L 133-145 [facility] Syphilis Antibodieson 2024 Syphilis Abs Non-Reactive Normal Nonreactive [facility] Comment on above: Performed By: #### L 501.9985, L3000.0375, L3890.6006, L500.4050, L509.8002, L500.4100 #### [facility] [address] [place], [address] Total proteinOrdered By: Rey Diego on 10-06-2024 Protein [Mass/Vol] 7.7 g/dL 5.9-8.4 [facility] Triglycerides measurementOrd ered By: Kayla Diego on 10-06-2024 Triglyceride [Mass/Vol] 142 mg/dL <199 [facility] Comment on above: The drugs N-Acetylcy steine and Metamizole may falsely depress this assay. Normal range: <150 mg/dLBorderline High: 150-199 mg/dLHigh: 200-499 mg/dLVery High: >500 mg/dL CULT URINEon 09-27-2023 CULT URINE SPECIMEN DESCRIPTION Urine, Clean Catch SPECIMEN TYPE Urine Tested at [place] [address] CULTURE RESULTS Multiple bacterial species isolated from urine consistent with urogenital commensal organisms. REPORT STATUS 09/27/2023 FINAL REPORT Normal [facility] Comment on above: Performed By: #### U RNC #### Eva Fernández ([id number]) [place] [address] TROPONIN I HIGH SENSITIVEon 09-26-2023 TROPONIN I HIGH SENSITIVE <3 Normal <15 [facility] Comment on above: Result Comment: Inte rpretive Guidelines: LOW RISK: <3 ng/L or Delta <4 and below 15 ng/L LOW INTERMEDIATE RISK: <15 ng/L HIGH INTERMEDIATE RISK: >/=15 ng/L HIGH RISK: >/=88 ng/L or Delta >/=22 Tested at [place] [address] Performed By: #### H STNI #### Eva Fernández ([id number]) [place] [address] [place] [address] BASIC METABOLIC PNLon 2023 Anion gap [Moles/Vol] 9 mmol/L Normal 4-16 [facility] Comment on above: Performed By: #### B AMP #### Eva Fernández ([id number]) [facility] [address] [place] [address] Calcium [Mass/Vol] 9.0 mg/dL Normal 8.5-10.4 [facility] Comment on above: Performed By: #### B AMP #### Eva Fernández ([id number]) [facility] [address] [place] [address] Chloride [Moles/Vol] 104 mmol/L Normal 98-111 [facility] Comment on above: Performed By: #### B AMP #### Eva Fernández ([id number]) [facility] [address] [place] [address] CO2 [Moles/Vol] 26 mmol/L Normal 21-31 [facility] Comment on above: Performed By: #### B AMP #### Eva Fernández ([id number]) [facility] [address] [place] [address] Creatinine [Mass/Vol] 0.74 mg/dL Normal 0.60-1.20 [facility] Comment on above: Performed By: #### B AMP #### Eva Fernández ([id number]) [facility] [address] [place] [address] ESTIMATED GFR 100 mL/min/1.73 m2 Normal >59 [facility] Comment on above: Result Comment: Alis mated GFR was calculated using the CKD-EPI cr (2020) equation refit without race. The equation is recommended by the National Kidney Foundation - [place] [employer] of Nephrology Task Force. Tested at [facility] [address] [facility] [address] Performed By: #### B AMP #### Eva Fernández ([id number]) [facility] [address] [place] [address] Glucose [Mass/Vol] 97 mg/dL Normal 70-99 [facility] Comment on above: Performed By: #### B AMP #### Eva Fernández ([id number]) [facility] [address] [place] [address] Potassium [Moles/Vol] 3.7 mmol/L Normal 3.6-5.1 [facility] Comment on above: Performed By: #### B AMP #### Eva Fernández ([id number]) [facility] [address] [place] [address] Sodium [Moles/Vol] 139 mmol/L Normal 135-145 [facility] Comment on above: Performed By: #### B AMP #### Eva Fernández ([id number]) [facility] [address] [place] [address] Urea nitrogen [Mass/Vol] 13 mg/dL Normal 8-26 [facility] Comment on above: Performed By: #### B AMP #### Eva Fernández ([id number]) [facility] [address] [place] [address] CBC W/ DIFFon 09-25-2023 ABS BASOS 0.00 THOU/mcL Normal 0.00-0.20 [facility] Comment on above: Performed By: #### C BCD #### Eva Fernández ([id number]) [facility] [address] [place] [address] ABS EOS 0.10 THOU/mcL Normal 0.03-0.45 [facility] Comment on above: Performed By: #### C BCD #### Eva Fernández ([id number]) [facility] [address] [place] [address] ABS LYMPHS 2.10 THOU/mcL Normal 1.00-4.00 [facility] Comment on above: Performed By: #### C BCD #### Eva Fernández ([id number]) [facility] [address] [place] [address] ABS MONOS 0.50 THOU/mcL Normal 0.20-0.90 [facility] Comment on above: Performed By: #### C BCD #### Eva Fernández ([id number]) [facility] [address] [place] [address] ABS NEUTROPHIL 2.90 THOU/mcL Normal 1.80-7.70 [facility] Comment on above: Performed By: #### C BCD #### Eva Fernández ([id number]) [facility] [address] [place] [address] Basophils/100 WBC (Bld) 1 % Normal [facility] Comment on above: Result Comment: Test ed at [facility] [address] [facility] [address] Performed By: #### C BCD #### Eva Fernández ([id number]) [facility] [address] [place] [address] Eosinophils/100 WBC (Bld) 1 % Normal [facility] Comment on above: Performed By: #### C BCD #### Eva Fernández ([id number]) [facility] [address] [place] [address] Erythrocyte distribution width (RBC) [Ratio] 13.5 % Normal 12.3-17.0 [facility] Comment on above: Performed By: #### C BCD #### Eva Fernández ([id number]) [facility] [address] [place] [address] Hematocrit (Bld) [Volume fraction] 39.1 % Normal 36-46 [facility] Comment on above: Performed By: #### C BCD #### Eva Fernández ([id number]) [facility] [address] [place] [address] Hemoglobin (Bld) [Mass/Vol] 13.1 g/dL Normal 12.0-15.2 [facility] Comment on above: Performed By: #### C BCD #### Eva Fernández ([id number]) [facility] [address] [place] [address] Lymphocytes/100 WBC (Bld) 38 % Normal [facility] Comment on above: Performed By: #### C BCD #### Eva Fernández ([id number]) [facility] [address] [place] [address] MCH (RBC) [Entitic mass] 29.5 pg Normal 27-33 [facility] Comment on above: Performed By: #### C BCD #### Eva Fernández ([id number]) [facility] [address] [place] [address] MCHC (RBC) [Mass/Vol] 33.4 g/dL Normal 32-36 [facility] Comment on above: Performed By: #### C BCD #### Eva Fernández ([id number]) [facility] [address] [place] [address] MCV (RBC) [Entitic vol] 88.1 fL Normal 82-97 [facility] Comment on above: Performed By: #### C BCD #### Eva Fernández ([id number]) [facility] [address] [place] [address] Monocytes/100 WBC (Bld) 9 % Normal [facility] Comment on above: Performed By: #### C BCD #### Eva Fernández ([id number]) [facility] [address] [place] [address] PLATELET 215 THOU/mcL Normal 140-375 [facility] Comment on above: Performed By: #### C BCD #### Eva Fernández ([id number]) [facility] [address] [place] [address] Platelet mean volume (Bld) [Entitic vol] 8.0 fL Normal 7.4-11.5 [facility] Comment on above: Performed By: #### C BCD #### Eva Fernández ([id number]) [facility] [address] [place] [address] RBC 4.44 MIL/mcL Normal 3.80-5.20 [facility] Comment on above: Performed By: #### C BCD #### Eva Fernández ([id number]) [facility] [address] [place] [address] SEGS 51 % Normal [facility] Comment on above: Performed By: #### C BCD #### Eva Fernández ([id number]) [facility] [address] [place] [address] WBC 5.6 THOU/mcL Normal 3.6-10.5 [facility] Comment on above: Performed By: #### C JOEL #### Eva Fernández ([id number]) [facility] [address] [place] [address] CT ABDOMEN PELVIS WO CONTRAS Ton 09-25-2023 CT ABDOMEN PELVIS WO CONTRAST CT ABDOMEN PELVIS WO CONTRAST HISTORY: Flank pain, kidney stone suspected left flank pain, vomiting , chest pain COMPARISON: Abdomen/pelvis CT 12-19 TECHNIQUE: Noncontrast multiplanar CT images of the abdomen and pelvis NOTE: If there are questions about the content of this report, please contact [facility] radiology by calling [phone] FINDINGS: LOWER CHEST: Unremarkable LIVER: Unremarkable GALLBLADDER/BILE [...] MD on 09/26/2023 12:21 AM 170.2 124.739 [facility] Imaging Report - Main Call Center - [facility] Call Center: Normal [facility] ED PROV NOTEon 09-25-2023 ED PROV NOTE Therapy Coordinator Authentication Interface Message Text [facility] EMERGENCY DEPARTMENT ED Encounter Arrival Date: 09/25/23 [address] Octaviano : 1975 [address] [place] [address] CSN: [id number] RAYRAY: [id number] EMERGENCY DEPARTMENT ENCOUNTER History: Chief Complaint Patient [...] g/dL RDW (more content not included)... Normal [facility] HCG,POC URINEon 09-25-2023 Beta HCG ( test) Ql (U) Negative Normal NEGATIVE [facility] Comment on above: Performed By: #### P HCG #### Eva Fernández ([id number]) [facility] [address] [place] [address] HEPATIC FUNC PANELon 024 Albumin [Mass/Vol] 3.7 g/dL Normal 3.5-5.7 [facility] Comment on above: Performed By: #### L IVER #### Eva Fernández ([id number]) [facility] [address] [place] [address] ALP [Catalytic activity/Vol] 65 U/L Normal 35-135 [facility] Comment on above: Performed By: #### L IVER #### Eva Fernández ([id number]) [facility] [address] [place] [address] ALT [Catalytic activity/Vol] 10 U/L Normal 10-60 [facility] Comment on above: Performed By: #### L IVER #### Eva Fernández ([id number]) [facility] [address] [place] [address] AST [Catalytic activity/Vol] 13 U/L Normal 10-40 [facility] Comment on above: Performed By: #### L IVER #### Eva Fernández ([id number]) [facility] [address] [place] [address] Bilirubin [Mass/Vol] 0.3 mg/dL Normal 0.0-1.2 [facility] Comment on above: Performed By: #### L IVER #### Eva Fernández ([id number]) [facility] [address] [place] [address] Bilirubin.direct [Mass/Vol] 0.1 mg/dL Normal 0.0-0.2 [facility] Comment on above: Result Comment: Test ed at [facility] [address] [facility] [address] Performed By: #### L IVER #### Eva Fernández ([id number]) [facility] [address] [place] [address] Protein [Mass/Vol] 7.0 g/dL Normal 6.0-8.0 [facility] Comment on above: Performed By: #### L IVER #### Eva Fernández ([id number]) [facility] [address] [place] [address] LIPASEon 09-25-2023 Lipase [Catalytic activity/Vol] 51 U/L Normal 11-82 [facility] Comment on above: Result Comment: Test ed at [facility] [address] [facility] [address] Performed By: #### L IPA #### Eva Fernández ([id number]) [facility] [address] [place] [address] UAS REFLEXon 09-25-2023 Appearance (U) Clear Normal Clear [facility] Comment on above: Performed By: #### U ASR #### Eva Fernández ([id number]) [facility] [address] [place] [address] BACTERIA SEE NOTES Abnormal NONE [facility] Comment on above: Result Comment: FEW Performed By: #### U ASR #### Eva Fernández ([id number]) [facility] [address] [place] [address] BILIRUBIN,URINE Negative Normal NEGATIVE [facility] Comment on above: Performed By: #### U ASR #### Eva Fernández ([id number]) [facility] [address] [place] [address] BLOOD, URINE Negative Normal NEGATIVE [facility] Comment on above: Performed By: #### U ASR #### Eva Fernández ([id number]) [facility] [address] [place] [address] Color (U) Yellow Normal Yellow [facility] Comment on above: Result Comment: Ligh t Yellow Performed By: #### U ASR #### Eva Fernández ([id number]) [facility] [address] [place] [address] Glucose Ql (U) Negative Normal NEGATIVE [facility] Comment on above: Performed By: #### U ASR #### Eva Fernández ([id number]) [facility] [address] [place] [address] Ketones Ql (U) Negative Normal NEGATIVE [facility] Comment on above: Performed By: #### U ASR #### Eva Fernández ([id number]) [facility] [address] [place] [address] Leukocyte esterase Test strip Ql (U) 4+ (500 Ena/uL) Abnormal NEGATIVE [facility] Comment on above: Performed By: #### U ASR #### Eva Fernández ([id number]) [facility] [address] [place] [address] Mucus Ql (Urine sed) PRESENT Normal [facility] Comment on above: Result Comment: Test ed at [facility] [address] [facility] [address] Performed By: #### U ASR #### Eva Fernández ([id number]) [facility] [address] [place] [address] Nitrite Ql (U) Negative Normal NEGATIVE [facility] Comment on above: Performed By: #### U ASR #### Eva Fernández ([id number]) [facility] [address] [place] [address] pH (U) 6.0 [pH] Normal 5.0-8.0 [facility] Comment on above: Performed By: #### U ASR #### Eva Fernández ([id number]) [facility] [address] [place] [address] PROTEIN URIN Trace (10-20 mg/dL) Abnormal NEGATIVE [facility] Comment on above: Performed By: #### U ASR #### Eva Fernández ([id number]) [facility] [address] [place] [address] RBC (U) [#/Vol] /uL Normal <6 [facility] Comment on above: Result Comment: 3 to 5 Performed By: #### U ASR #### Eva Fernández ([id number]) [facility] [address] [place] [address] SPEC.GRAVITY,URINE 1.021 Normal 1.005-1.029 [facility] Comment on above: Performed By: #### U ASR #### Eva Fernández ([id number]) [facility] [address] [place] [address] SQUAMOUS EPI CELLS 6 to 10 Normal [facility] Comment on above: Performed By: #### U ASR #### Eva Fernández ([id number]) [facility] [address] [place] [address] UROBILINOGEN 1+ (2-3 mg/dL) Abnormal NORMAL [facility] Comment on above: Performed By: #### U ASR #### Eva Fernández ([id number]) [facility] [address] [place] [address] WBC 11 to 20 Abnormal <6 [facility] Comment on above: Performed By: #### U ASR #### Eva Fernández ([id number]) [facility] [address] [place] [address] SPECIMEN SOURCE Urine, Clean Catch Normal [facility] Comment on above: Performed By: #### U ASR #### Eva Fernández ([id number]) [facility] [address] [place] [address] URINE TYPE Urine Normal [facility] Comment on above: Performed By: #### U ASR #### Eva Fernández ([id number]) [facility] [address] [place] [address] CBC W Auto Differential pane l (Bld)on 10-09-2022 Basophils (Bld) [#/Vol] 0.1 10*3/uL 0.0 - 0.2 K/uL [employer] [facility] Basophils/100 WBC (Bld) 0.8 % [facility] Eosinophils (Bld) [#/Vol] 0.0 10*3/uL 0.0 - 0.6 K/uL [employer] [facility] Eosinophils/100 WBC (Bld) 0.3 % [employer] [facility] Erythrocyte distribution width (RBC) [Entitic vol] 13.7 % 12.4 - 15.4 % [facility] Hematocrit (Bld) [Volume fraction] 41.1 % 36.0 - 48.0 % [facility] Hemoglobin (Bld) [Mass/Vol] 13.6 g/dL 12.0 - 16.0 g/dL [facility] Lymphocytes (Bld) [#/Vol] 1.3 10*3/uL 1.0 - 5.1 K/uL [facility] Lymphocytes/100 WBC (Bld) 14.4 % [facility] MCH (RBC) [Entitic mass] 29.7 pg 26.0 - 34.0 pg [facility] MCHC (RBC) [Mass/Vol] 33.0 g/dL 31.0 - 36.0 g/dL [facility] MCV (RBC) [Entitic vol] 89.8 fL 80.0 - 100.0 fL [facility] Monocytes (Bld) [#/Vol] 0.8 10*3/uL 0.0 - 1.3 K/uL [facility] Monocytes/100 WBC (Bld) 9.3 % [facility] Neutrophils (Bld) [#/Vol] 6.8 10*3/uL 1.7 - 7.7 K/uL [facility] Neutrophils/100 WBC (Bld) 75.2 % [facility] Platelet mean volume (Bld) [Entitic vol] 7.7 fL 5.0 - 10.5 fL [facility] Platelets (Bld) [#/Vol] 238 10*3/uL 135 - 450 K/uL [facility] RBC (Bld) [#/Vol] 4.57 10*6/uL [facility] WBC (Bld) [#/Vol] 9.0 10*3/uL 4.0 - 11.0 K/uL [facility] Comprehensive metabolic 2000 panelon 10-09-2022 Albumin [Mass/Vol] 3.7 g/dL 3.4 - 5.0 g/dL [facility] Albumin/Globulin [Mass ratio] 0.9 {ratio} Low 1.1 - 2.2 [facility] ALP [Catalytic activity/Vol] 66 U/L 40 - 129 U/L [facility] ALT [Catalytic activity/Vol] 8 U/L Low 10 - 40 U/L [facility] Anion gap [Moles/Vol] 8 mmol/L 3 - 16 [facility] AST [Catalytic activity/Vol] 15 U/L 15 - 37 U/L [facility] Bilirubin [Mass/Vol] 0.4 mg/dL 0.0 - 1 .0 mg/dL [facility] Calcium [Mass/Vol] 9.6 mg/dL 8.3 - 10. 6 mg/dL [facility] Chloride [Moles/Vol] 103 mmol/L 99 - 11 0 mmol/L [facility] CO2 [Moles/Vol] 26 mmol/L 21 - 32 mmol/L [facility] Creatinine [Mass/Vol] 0.7 mg/dL 0.6 - 1.1 mg/dL [facility] GFR/1.73 sq M.predicted CKD-EPI (S/P/Bld) [Vol rate/Area] 60 - PINF [facility] Comment on above: Pediatric calculator link https://www.kidney.org/professionals/kdoqi/gfr_calculatorped [...] [Mass/Vol] 91 mg/dL 70 - 99 mg/dL [facility] Interpretation and review of laboratory results Abnormal [facility] Potassium [Moles/Vol] 4.1 mmol/L 3.5 - 5.1 mmol/L [facility] Protein [Mass/Vol] 7.6 g/dL 6.4 - 8.2 g/dL [facility] Sodium [Moles/Vol] 137 mmol/L 136 - 145 mmol/L [facility] Urea nitrogen [Mass/Vol] 10 mg/dL 7 - 20 mg/dL [facility] HCG ( test) Qlon [facility] HCG Qualitative, Serumon HCG ( test) Ql Negative Detects HCG level >10 MIU/mL [facility] No Panel Informationon 10-09 [facility] Troponinon 10-09-2022 Troponin, High Sensitivity 8 ng/L 0 - 14 ng/L [facility] Comment on above: The high-sensitivity troponin T result should not be compared with other troponin methodologies. [facility] Troponin, High Sensitivity 8 ng/L 0 - 14 ng/L [facility] Comment on above: The high-sensitivity troponin T result should not be compared with other troponin methodologies. XR CHEST PORTABLEon 10-10-19 No definite portable radiographic evidence of acute cardiopulmonary disease when patient rotation to the right, patient body habitus and low lung volumes taken a consideration. [facility] EXAMINATION: ONE XRAY VIEW OF THE CHEST [...] widening when patient positioning taken a consideration [facility] Bucky Barrios D O - 10/09/2022 EXAMINATION: [...] and low lung volumes taken a consideration. [facility] Radiology Study observation (narrative) [facility] XR CHEST PORTABLEOrdered By: Bucky Barrios on 10-09-2022 GEOVANNI PHAM [employer] Work Phone: FOLATESon 03-17-2020 FOLATES 15.3 ng/mL Normal >5.21 [facility] Comment on above: Performed By: #### L [id number] #### [facility] [address] [place] [address] PREG TEST, UA QUALon 020 TEST,UR QL Negative Normal NEGATIVE [facility] Comment on above: Performed By: #### L [id number] #### [facility] [address] [place] [address] SARS CoV-2, OL, PCR RAPIDon 03-17-2020 SARS CoV-2, OL, PCR RAPID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 INTRAEPITHELIAL LESION OR M ALIGNANCY. This liquid based Th inPrep(R) pap test was screened withthe use of an image guided system. Start: 10-15-2024 Procedure Kayla Diego REFINERY TECHNICIAN-C Work Phone: Comment on above: Test Ordered: [id number] NuSwab Vaginitis Pl us (VG+)Test(s) 894234- Atopobium vaginae; 768342- BVAB 2;075458- Megasphaera 1was developed and its performance characteristicsdetermined by [facility]. It has not been cleared or approvedby the Food and Drug Administration.Test(s) 194175-Onxpghk albicans, GENET; 162971-Mgvjhkf glabrata, NAAwas developed and its performance characteristicsdetermined by [facility]. It has not been cleared or approvedby [...] GENET Negative =G Reference Range: NegativePerformed at: = - [facility] [place], [place] [id number] Director: Liz Brown MD, Phone: [phone] at: [facility] [id number] Director: Александр Floiran PhD, Phone: [phone] Start: 10-15-2024 Urine culture Kayla Azar REFINERY TECHNICIAN-C Work Phone: Start: 10-06-2024 Hepatitis A virus antibody, IgM type Kayla Azar REFINERY TECHNICIAN-C Work Phone: Comment on above: A negative anti-HAV IgM result suggests no recent orcurrent HAV infection. Start: 10-06-2024 Hepatitis B core antibody measurement, IgM type [facility] REFINERY TECHNICIAN-C Work Phone: Start: 10-06-2024 Hepatitis C antibody [facility] REFINERY TECHNICIAN-C Work Phone: Comment on above: Client Requested Flag Start: 10-06-2024 Hepatitis C virus RNA assay Kayla Alanis REFINERY TECHNICIAN-C Work Phone: Start: 10-06-2024 Serologic test for syphilis Kayla Alanis REFINERY TECHNICIAN-C Work Phone: Start: 04-14-2024 Adult depression screening assessment [facility] Work Phone: Start: 10-09-2022 Assay of troponin quantitative Tom drake [facility] Work Phone: Start: 10-09-2022 Radiologic exam chest single view Tom Jacobson AUTOMATIC MOUNTER - [facility] Work Phone: Start: 10-09-2022 Gonadotropin chorionic qualitative Tom Jacobson AUTOMATIC MOUNTER - [facility] Work Phone: Start: 10-09-2022 Ecg routine ecg w/least 12 lds w/i&r Tom Jacobson AUTOMATIC MOUNTER - [facility] Work Phone: Plan of Treatment Date Care Activity Detail Author Start: 07-04-2025 DTaP/Tdap/Td vaccine (2 - Td or Tdap) DTaP/Tdap/Td vaccine (2 - Td or Tdap) [facility] Start: 07-04-2025 Immunization: DTaP/Tdap/Td (2 - Td or Tdap) Immunization: DTaP/Tdap/Td (2 - Td or Tdap) [facility] Start: 04-14-2025 Depression screening Depression Screening [facility] Start: 12-17-2024 ambulatory Ambulatory Facility:[facility] Start: 11-22-2024 [facility] Start: 10-06-2024 Serologic test for syphilis [facility] Start: 10-06-2024 [facility] Start: 12-01-2023 Immunization: COVID-19 ( season) Immunization: COVID-19 ( season) [facility] Start: 12-01-2023 Immunization: Influenza (MyChart) (#1) Immunization: Influenza (MyChart) (#1) [facility] Start: 11-20-2023 Hemoglobin A1c measurement Diabetes Screening [facility] Start: 11-20-2023 Physical examination Comprehensive Physical Exam [facility] Start: 03-15-2023 Screening for malignant neoplasm of cervix Cervical Cancer Screening/Pap Smear (MyChart) [facility] Start: 10-30-2022 Influenza vaccination Flu vaccine (#1) [facility] Start: 09-15-2021 COVID-19 Vaccine (4 - Booster for Moderna series) COVID-19 Vaccine (4 - Booster for Moderna series) [facility] Start: 11-27-2020 Screening for malignant neoplasm of colon [facility] Start: 05-17-2020 Immunization: Hepatitis B (2 of 3 - 19+ 3-dose series) Immunization: Hepatitis B (2 of 3 - 19+ 3-dose series) [facility] Start: 05-06-2020 Lipid panel Lipids [facility] Start: 2015 Screening for malignant neoplasm of breast Mammogram (MyChart) [facility] Start: 11-27-2005 Screening for malignant neoplasm of cervix [facility] Start: 11-27-1996 Screening for malignant neoplasm of cervix Pap smear [facility] Start: 11-27-1993 Hepatitis C screening Hepatitis C screen [facility] Start: 11-27-1990 HIV screening HIV screen [facility] Start: 1987 Depression Monitoring Depression Monitoring [facility] Start: 1975 Screening for malignant neoplasm of colon Abnormal Colonoscopy Follow Up [facility] Alanine aminotransfe rase [Enzymatic activity/volume] in Serum or Plasma [facility] Albumin [Mass/volume ] in Serum or Plasma [facility] Alkaline phosphatase [Enzymatic activity/volume] in Serum or Plasma [facility] Anion gap in Serum o r Plasma [facility] Bilirubin, total measurement [facility] BUN/Creatinine ratio [facility] Calcium [Mass/volume ] in Serum or Plasma [facility] Carbon dioxide, tota l [Moles/volume] in Central venous blood [facility] Cholesterol [Mass/vo lume] in Serum or Plasma [facility] Cholesterol in HDL [Mass/volume] in Serum or Plasma [facility] Creatinine [Mass/vol ume] in Serum or Plasma [facility] EKG 12 Lead EKG 12 Lead ECG Routine 10/09/2022 11:58 AM EDT [facility] Work Phone: Glucose [Mass/volume ] in Serum or Plasma [facility] Hepatitis A virus Ig M Ab [Presence] in Serum [facility] Hepatitis B core ant ibody measurement, IgM type [facility] Hepatitis B surface antigen measurement [facility] Hepatitis C antibody measurement [facility] Low density lipoprot ein cholesterol measurement [facility] Measurement of renal function [facility] Potassium measurement [facility] Serum chloride measurement [facility] Sodium measurement [facility] Total cholesterol:HD L ratio measurement [facility] Total protein measurement [facility] Triglycerides measurement [facility] Urea nitrogen [Mass/ volume] in Serum or Plasma [facility] VLDL cholesterol measurement [facility] Immunizations Immunization Date Immunization Notes Care Provider Eden grijalva 07-21-2021 COVID-19, mRNA, Mode rna monovalent, age 12+ Bethany Alejandra BEHAVIORAL THERAPY COORDINATOR Work Phone: [facility] 06-26-2021 influenza, injectabl e, quadrivalent, preservative free Bethany Roberts BEHAVIORAL THERAPY COORDINATOR Work Phone: [facility] 05-09-2020 COVID-19, mRNA, Mode rna monovalent, age 12+ Bethany Roberts BEHAVIORAL THERAPY COORDINATOR Work Phone: [facility] 04-19-2020 hepatitis A vaccine, adult dosage [facility] BEHAVIORAL THERAPY COORDINATOR Work Phone: [facility] 04-19-2020 hepatitis B vaccine, adult dosage [facility] BEHAVIORAL THERAPY COORDINATOR Work Phone: [facility] 04-14-2020 COVID-19, mRNA, Mode rna monovalent, age 12+ Edmeston Roberts BEHAVIORAL THERAPY COORDINATOR Work Phone: [facility] 03-08-2020 influenza, injectabl e, quadrivalent, preservative free [facility] Work Phone: [facility] 03-27-2018 influenza, injectabl e, quadrivalent, preservative free [facility] Work Phone: [facility] 07-05-2015 tetanus toxoid, redu stefani diphtheria toxoid, and acellular pertussis vaccine, adsorbed Orly Brown AUTOMATIC MOUNTER - BEHAVIORAL THERAPY COORDINATOR Work Phone: [facility] Payers Date Payer Category Payer Self-pay 2021 Unknown [id number] 2015 Private Health Insurance [id number] 1975 Unknown [id number] 2.16.8 [id number] 1975 Unknown [id number] 2.16.8 [id number] 1975 Unknown [id number] 2.16.8 [id number] 1975 Unknown [id number] 2.16.8 [id number] Medicare [id number] Unknown [id number] 2.16.8 [id number] Unknown [id number] 2.16.8 [id number] Unknown [id number] 2.16.8 [id number] Unknown [id number] 2.16.8 [id number] Unknown [id number] 2.16.8 [id number] Unknown [id number] 2.16.8 [id number] Unknown [id number] 2.16.8 [id number] Social History Date Type Detail Facility Start: 10-09-2022 End: 04-14-2024 Tobacco smoking status MEIS Ex-smoker [facility] End: 04-01-2000 History of tobacco use Current smoker [facility] End: 04-01-2000 History of tobacco use Cigarette Smoker [facility] Start: 10-09-2022 End: 04-14-2024 Cigarettes smoked current (pack per day) - Reported 0.5 [facility] Start: 10-09-2022 End: 04-14-2024 Tobacco use and exposure Smokeless tobacco non-user [facility] Start: 10-09-2022 Alcohol intake Current non-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 software tester of alcohol (finding) [facility] Start: 11-09-2012 Alcohol Comment rarely [facility] Start: 1975 Sex Assigned At Female B [facility] [email or web address] Start: 04-14-2024 Alcoholic beverage intake Ex-drinker (finding) [facility] Start: 04-14-2024 Tobacco use panel [facility] Adult Depression Screening Assessment 0 Health Start: 01-10-2022 Alcohol Comment not in the past 12 y ears Health Start: 03-27-2022 Gender identity Identifies as female gender (finding) Health Start: 03-27-2022 Sexual orientation Heterosexual (fin ding) Health Start: 11-22-2024 Tobacco smoking stat [facility] Unknown if ever smoked [facility] Clinical Notes 09-25-2023 to 11-22-2024 Note Date & Type Note Facility 11-22-2024 Discharge summary [facility] 11-22-2024 Discharge summary Note Date/Time November 22, 2024 2:19pm [facility] Medical Records Department [address] [place] [address] Emergency Department Summary 11/22/24 MR#: [id number] Acct: [id number] Name: LINDA BRUMFIELD Rep #:[id number] : 1975 48 From: Tom Donald DO PCP: LOLA Turner Status:REG E R Location: ED HPI History of Present Illness Chief Complaint: Lower Extremity Injury Narrative Narrative: Patient is a 40-year-old female with past medical anxiety, methamphetamine use, PTSD, hypokalemia who presented to the emergency department with a chief complaint of left knee pain. Patient states that about 3 weeks ago she was taken her daughter back home was sitting in the backseat of the car and noted that she attempted to move her knee. She states that at that point time she felt like it was twisting on itself. She states that since then she has had pain and notes that today she was going off a set of stairs from her neighbors house and when she stepped down she had extreme pain prompting her to come here for further evaluation management. States that she has been trying to ice use ibuprofen for pain however this is not helping therefore she came here. Patientstates that she has had steroid injections in her knees in the past which seem to help her but her last one was about a year ago. Patient denies any fevers [facility]chills [facility] Medical History Anxiety disorder Hallucinations Insomnia UTI (urinary tract infection) Back pain Abdominal pain Methamphetamine use Suicidal ideation RUQ pain PTSD (post-traumatic stress disorder) Medial meniscus tear Chondromalacia of knee Migraine with aura and without status migrainosus, not intractable Drug overdose, intentional Hypokalemia Home Medications ?Medication ?Instructions ?Recorded ?Last Taken ?Type all seltzer fizzy melts PO PRN 10/06/24 Unknown Hist ory hydrocortisone 2.5 % topical cream 1 applic ND QD-BID PRN rectal pain 10/06/24 Unknown Rx with perineal applicator and bleeding #30 grams lubiprostone 24 mcg capsule 24 mcg PO BID #60 caps 11/23 Unknown Rx (Amitiza) ondansetron HCl 4 mg tablet 4 mg PO Q4-6H PRN 10/06/24 Unknown History pantoprazole 40 mg tablet,delayed 40 mg PO QDAY #90 ta bs 10/06/24 Unknown Rx release peg 3350-electrolytes 236 240 ml PO Q10M #4,000 mL 11/23 Unknown Rx gram-22.74 gram-6.74 gram-5.86 gram solution (Golytely) polyethylene glycol 3350 17 17 g PO Q10M #119 grams Unknown Rx gram/dose oral powder (Miralax) ropinirole 2 mg tablet 2 mg PO QHS 10/06/24 Unknown History diclofenac sodium 1 % topical gel 2 g topical Q6H PRN PRN pain 11/22/24 Unknown Rx (Voltaren Arthritis Pain) (scale score 4-6) #50 grams Allergy/AdvReac Type Severity Reaction Status Date / Time erythromycin base (From Allergy Mild chest pain Verified 11/22/24 12:37 E-Mycin) and swelling hydroxyzine Allergy Mild elevates Verified 11/22/24 12:37 heart rate Family History Brother Alcoholism Mother Anemia affecting fifth Anemia Anxiety Asthma Arthritis Bowel disease Cancer cervical and lung Depression Diabetes Heart disease Hypertension High cholesterol Kidney disease Liver disease Mental disorder Osteoporosis Ovarian cancer Respiratory disease CVA (cerebral vascular accident) Suicide attempt Thyroid disorder COPD (chronic obstructive pulmonary disease) Father Arthritis Diabetes Myocardial infarction Hypertension Surgical History Hx of cholecystectomy H/O tubal ligation Social History Smoking Status: Unknown if ever smoked ROS ROS ED ROS Narrative Constitutional: Denies any fevers, chills Neurological: Denies any numbness, weakness, tingling Musculoskeletal: Complains of left knee pain as noted above Skin: Denies any rashes or lesions EXAM Physical Exam Narrative Exam Narrative: General: Patient is lying in bed did appear to be uncomfortable secondary to herknee pain she was tearful Head: Atraumatic, normocephalic Eyes: PERRL bilateral, EOMI bilateral, no conjunctival injection noted Neck: Soft, supple, trachea midline Cardiovascular: Regular rate and rhythm Respiratory: Clear to auscultation bilaterally Abdomen: Soft, nondistended, nontender to palpation Musculoskeletal: Patient has full range of motion of her left knee no evidence short arc syndrome no concern for septic joint Extremities: DP pulses +2/4 in the left lower extremity, +5/5 strength noted in the bilateral lower extremities Neurological: Patient following commands and that she was at [facility] the year is 2024 sensation grossly intact Skin: Warm, dry, intact no rashes or lesions noted no erythema of her knee no petechia no purpura noted Const Vital Signs: 11/22/24 12:35 Temperature 98.2 F Temperature Source Oral Pulse Rate 82 Respiratory Rate 16 Blood Pressure 162/93 H Blood Pressure Mean 116 Pulse Ox 98 Oxygen Delivery Method Room Air MDM MDM MDM Narrative Medical decision making narrative: Patient is a 48-year-old female who presents to the emergency department the chief complaint of left knee pain. On the differential diagnosis includes but limited to meniscal tear, ligamentous injury, osteoarthritis, septic joint although have low suspicion for this clinically. Once workup is obtained reviewed she will be reevaluated. Patient given [place] and Zofran. Patient's x-ray of her left knee reviewed by myself by radiology showed no acutefractures or dislocations no joint effusion noted. Discussed results with the patient. She states that [place] and we will refer her to 1 today for steroid injections. Nakitawill also be given prescription for Voltaren gel. She is also advised to rotateTylenol and ibuprofen wrkatb-[id number]-[id number]. She advised return with worsening symptoms or concerns. She is agreeable this plan all question concerns answeredshe was discharged home in stable condition. Radiography Diagnostic Testing: Clinical Impression(s) from Imaging Studies Knee X-Ray 11/22/24 13:10 IMPRESSION: No acute osseous abnormalities. Reading Location: [facility] Discharge Plan Triage Chief Complaint: Lower Extremity Injury ED Provider: Tom Donald Dx/Rx/DC Orders Clinical Impression: Knee pain, left, Osteoarthritis, History of depression Prescriptions: New diclofenac sodium [Voltaren Arthritis Pain] 1 % gel 2 g topical Q6H PRN PRN (Reason: pain (scale score 4-6)) Qty: 50 0RF No Action ropinirole 2 mg tablet 2 mg PO QHS Rx Instructions: administer 1-3 hours before bedtime all jeb millery melts 200 mg PO PRN ondansetron HCl 4 mg tablet 4 mg PO Q4-6H PRN pantoprazole 40 mg tablet,delayed release (DR/EC) 40 mg PO QDAY Qty: 90 1RF Rx Instructions: take once daily 30 minutes before breakfast on an empty stomach lubiprostone [Amitiza] 24 mcg capsule 24 mcg PO BID Qty: 60 2RF Rx Instructions: twice a day with breakfast and dinner hydrocortisone 2.5 % cream with perineal applicator 1 applic ND QD-BID PRN (Reason: rectal pain and bleeding) Qty: 30 0RF peg 3350-electrolytes [Golytely] 236-22.74-6.74 -5.86 gram recon soln 240 ml PO Q10M Qty: 4000 0RF Rx Instructions: take as directed for split dose bowel prep polyethylene glycol 3350 [Miralax] 17 gram/dose powder 17 g PO Q10M Qty: 119 0RF Rx Instructions: as directed for split dose bowel prep Primary Care Provider: Kayla Diego Referrals: Kayla Diego NP-C [Primary Care Provider] - Parrish Bullock MD [Med Staff - Active Staff] - Activity Restrictions/Additional Instructions: Your x-ray did not show any acute findings here today. Rotate Tylenol and ibuprofen [id number] when you do this you can take something every 3 hoursfor pain. Max dose of Tylenol in 24 hours 4000 mg max dose of ibuprofen in 24 hours 3200 mg. Use the Voltaren gel that was sent to the pharmacy as prescribed. Follow-up with the orthopedic team they referred to. Return with worsening symptoms or any other concerns Print Language: Peruvian Disposition Disposition: Home, Self Care What to do if you have Problems For any increased pain, shortness of breath, bleeding, nausea or vomiting, chestpain, or any unexpected problems, contact your Primary Care Provider. Call [facility] ([phone]) or report to the closest Emergency Room. Call 911 if necessary. 11/22/24 1419 <Electronically signed by Tom Donald DO> Cosigner Signature (if applicable): CC: REFINERY TECHNICIANCayla Diego ~ Signed [facility] Work Phone: 1(900) 250-723308-24-2025 Radiology Diagnostic study note [facility] Imaging Services [address] [place], [place] [id number] Knee 4 or More Views MR#: [id number] Acct: [id number] Name: LINDA BRUMFIELD Rep #: [id number] : 1975 F 48 From: Dominick Mills MD PCP: LOLA Turner Status: REG E R Study:Knee 4 or More Views Date of Exam: 11/22/24 Exam# [id number] Ordering Dr: Patricia Donald DO PROCEDURE: KNEE 4 OR MORE VIEWS 11/22/2024 REASON FOR EXAM: PAIN, 3 WEEKS TECHNIQUE: KNEE 4 OR MORE VIEWS Laterality: Left COMPARISON: None FINDINGS: Bones: No acute bony abnormalities. Joints: Unremarkable. Effusion: No effusion. Soft tissues: No soft tissue abnormalities. Other: RAD/Knee 4 or More Views IMPRESSION: No acute osseous abnormalities. Reading Location: [facility] CC: LOLA Diego; Dr. Tom Donald DO ~ Projector Operator: Signed [facility]07-08-2025 Evaluation note* Diagnosis Onset Date Resolution Status Admit Date Abdominal pain acute October 06, 2024 9:32am Constipation acute October 06 9:32am Nausea acute October 06, 2024 9:32am [facility] Work Phone: 1(560) 788-266801-14-2025 History of Present illness Narrative* Bethany Roberts CNP - 04/14/2024 4:30 PM EST [facility] AT [address] [address] Subjective Name: Linda Brufmield Date of : 1975 (48 y.o.) Date [...] discussed BETHANY ROBERTS CNP documented in this encounterGeorgetown Behavioral [id number] Instructions* Patient Instructions* Bethany Roberts CNP - 04/14/2024 4:30 PM EST Alternate 1000mg of tylenol with 600mg of ibuprofen Robaxin prn Be aware this causes drowsiness documented in this encounterGeorgetown Behavioral [id number] NoteTranscription Authentication Interface Message Text CURRENT STATUS IS EMERGENCY . : Any questions regarding PATIENT CLASS/STATUS should be directed to the Care Management Departments: [facility] [phone] or [facility] [phone] or [facility] [phone].[facility] note* Diagnosis Chest pain, unspecified type- Primary Elevated blood pressure reading Elevated blood pressure reading without diagnosis of hypertension documented in this encounter GEOVANNI PHAM [facility] SYSTEMAwais [facility]* Diagnosis Acute strain of neck muscle, initial encounter- Primary Other acute back pain Acute non intractable tension-type headache documented in this encounter [facility] noteNo assessment information availableRedwood Memorial Hospital Work Phone: Hospital Discharge instructions* Attachments The following attachments cannot be sent through Care Everywhere. * Chest Pain (Peruvian) * Blood Pressure: Elevated (Peruvian) documented in this encounterBON [facility] Discharge instructionsAdditional Instructions Your x-ray did not show any acute findings here today. Rotate Tylenol and ibuprofen [id number] when you do this you can take something every 3 hours for pain. Max dose of Tylenol in 24 hours 4000 mg max dose of ibuprofen in 24 hours 3200 mg. Use the Voltaren gel that was sent to the pharmacy as prescribed. Follow-up with the orthopedic team they referred to. Return with worsening symptoms or any other concernsWMercy Health Work Phone: Reason for referral (narrative)No reason for referral information availableKing'S Daughters [facility] Services Work Phone: Summary Purpose Family History Relationship Condition Age at Onset Recorded Date/T [...] Arthritis Unknown Myocardial infarction Unknown Advance Directives Latest Code Status on File Code Status Date Activated Date Inactivated Comments Full Code 04/02/2018 6:15 PM 04/09/2018 5:08 PM Code Status History Code Status Date Activated Date Inactivated Comments Full Code 11/13/2017 2:10 AM 11/21/2017 2:42 PM Full Code 11/18/2012 2:04 AM 12/01/2012 4:59 PM Advance Directive Response Recorded Date/ Time Do you have a Healthcare Power of Mechanical Equipment Test Engineer? No November 22, 2024 1:08pm Chief Complaint and Reason for Visit Chief Complaint Admit Date CONSTIPATION October 06, 2024 9:32a m lower November 22, 2024 12 :33pm Reason for Visit Admit Date Abdominal pain October 06, 2024 9:32a m Constipation October 06, 2024 9:32a m Nausea October 06, 2024 9:32a m Chief Complaint Admit Date CONSTIPATION October 06, 2024 9:32a m Chief Complaint Admit Date CONSTIPATION October 06, 2024 9:32a m lower [place] 24th, 2025 12 :33pm lower ext November 24, 2024 1: 20pm Additional Source Comments INFORMATION SOURCE (unrecogn ized section and content) DATE CREATED AUTHOR 09/16/2017 [facility] DATE CREATED AUTHOR AUTHOR'S ORGANIZ ATION 03/18/2020 [facility] DATE CREATED AUTHOR AUTHOR'S ORGANIZ ATION 11/11/2023 [facility] DATE CREATED AUTHOR AUTHOR'S ORGANIZ ATION 04/21/2024 [facility] DATE CREATED AUTHOR AUTHOR'S ORGANIZ ATION 11/23/2024 [facility] Reason for Visit (unrecogniz ed section and [...] Care Teams (unrecognized sec tion and content) Access Representative Relationship Specialty Start Date End Date Orly Pillai APRN - BEHAVIORAL THERAPY COORDINATOR PCP - General Nurse Practitioner 04/03/18 Access Representative Relationship Specialty Start Date End Date MoralesSandraCarlos Muan, BEHAVIORAL THERAPY COORDINATOR [address] [place] [address] PCP - General Nurse Practitioner 01/10/22 Team Status: Active Member Role/Relationship Status Dates Kayladallas Davishof , REFINERY TECHNICIAN-C Primary Care Provider Active Team Status: Active Member Role/Relationship Status Dates Kayladallas Davishocristel , REFINERY TECHNICIAN-C Primary Care Provider Active Start: October 06, 2024 Kayla Diego , REFINERY TECHNICIAN-C Attending Provider Active Start: October 06, 2024 Kayladallas Davishocristel , REFINERY TECHNICIAN-C Referring Provider Active Start: October 06, 2024 Team Status: Inactive Member Role/Relationship Status Dates Candis Stone REFINERY TECHNICIAN-C Attending Provider Active Start: October 06, 2024 End: October 06, 2024 Kayladallas Davishof , REFINERY TECHNICIAN-C Primary Care Provider Active Start: October 06, 2024 End: October 06, 2024 Kayladallas Davishof , REFINERY TECHNICIAN-C Referring Provider Active Start: October 06, 2024 End: October 06, 2024 Team Status: Inactive Member Role/Relationship Status Dates Kayladallas Davishof , REFINERY TECHNICIAN-C Primary Care Provider Active Start: October 06, 2024 End: October 06, 2024 Kayladallas Davishocristel , REFINERY TECHNICIAN-C Attending Provider Active Start: October 06, 2024 End: October 06, 2024 Kayla Davishof , REFINERY TECHNICIAN-C Referring Provider Active Start: October 06, 2024 End: October 06, 2024 Team Status: Inactive Member Role/Relationship Status Dates Kayladallas Davishof , REFINERY TECHNICIAN-C Primary Care Provider Active Start: October 15, 2024 End: October 15, 2024 Kayla Diego , REFINERY TECHNICIAN-C Attending Provider Active Start: October 15, 2024 End: October 15, 2024 Team Status: Active Member Role/Relationship Status Dates Kayla Diego , REFINERY TECHNICIAN-C Primary Care Provider Active Start: November 21, 2024 Dr. Paulo Carpenter DC Attending Provider Active Start: November 21, 2024 Dr. Paulo Carpenter DC Referring Provider Active Start: November 21, 2024 Team Status: Inactive Member Role/Relationship Status Dates Kayla Diego NP-C Primary Care Provider Active Start: November 22, 2024 End: November 22, 2024 Dr. Tom Donald , DO Emergency Provider Active Start: November 22, 2024 End: November 22, 2024 Team Status: Inactive Member Role/Relationship Status Dates Kayla Diego NP-C Primary Care Provider Active Start: November 24, 2024 End: November 24, 2024 Ed Physician Provider Emergency Provider Active Start: November 24, 2024 End: November 24, 2024 Source Comments (unrecognize d section and [...] release of HIV test results or diagnoses. [id number] Goals (unrecognized section and content) Goals [...] BE BASED ON THE PRIMARY CLINICAL RECORDS. [employer] provides no warranty or guarantee of the accuracy or completeness of information in this document.
== END 2024-11-24 14:58 | disposition left against medical advice (07) ==
LOC: ED 15:00
PROVIDERS: PCP Nurse Practitioner Family
DX: Z00.00 Encounter for general adult medical examination without abnormal findings (principal)

== ENCOUNTER → 2024-12-11 | Outpatient (CLI) | payer MEDICAID, SELFPAY ==
--- NOTE | 2024-12-11 16:50 | RAD_ITS ---
PROCEDURE: CHEST PA AND LATERAL 12/11/2024 REASON FOR EXAM: WHEEZING TECHNIQUE: Procedure Code: RADCXR Modality: DX Procedure: CHEST PA AND LATERAL COMPARISON: None. FINDINGS: LUNGS AND PLEURA: The lungs are clear. No pleural effusion or pneumothorax. HEART AND MEDIASTINUM: The heart size and mediastinal contours are normal. BONES: No acute osseous abnormality. RAD/Chest PA and Lateral IMPRESSION: NO ACUTE FINDINGS. Reading Location: [id number]
[2024-12-11 16:58] LABS: Hematocrit 39.4 % (37-47); Hemoglobin 12.7 g/dL (12.0-15.0); Immature Granulocytes Count 0.030 X10^3/uL (0.0-0.0); Mean Corp Hgb Conc 32.2 g/dL (32-36); Mean Corpuscular Volume 89.7 fL (81-99); Mean Platelet Vol. 9.4 fl (6.2-12.0); NRBC Flagged by Analyzer 0 % (0-5); Platelet Count 252 K/mm3 (150-450); RBC Distribution Width CV 13.2 % (11.6-14.6); RBC Distribution Width SD 43.4 fl (35.1-43.9); Red Blood Count 4.39 M/mm3 (4.2-5.4); White Blood Count 5.3 K/mm3 (4.4-11.0)
[2024-12-11 17:31] LABS: AST(SGOT) 24 U/L (<=31); Alanine Aminotransfer ALT/SGPT 17 U/L (<=34); Albumin, Serum 3.6 g/dL (3.5-5.0); Alkaline Phosphatase 63 U/L (35-104); Anion Gap 11 (5-15); BUN 14 mg/dL (4-19); BUN/Creat Ratio 18.2 RATIO (10-20); Calcium,Total 9.5 mg/dL (7.6-11.0); Carbon Dioxide 24.5 mmol/L (21.0-32.0); Chloride 106 mmol/L (98-108); Free T3 3.3 pg/mL (2.18-3.98); Globulin 3.3 g/dL (2.2-4.2); Glucose 101 mg/dL (70-99); Magnesium 3.6 mg/dL (1.5-2.2); Potassium 4.2 mmol/L (3.3-5.1)
== END | disposition home or self-care (01) ==
LOC: LAB 16:31
PROVIDERS: PCP Nurse Practitioner Family; Referring Provider Nurse Practitioner Family; Visit Provider Nurse Practitioner Family
DX: R61 Generalized hyperhidrosis (principal); R06.2 Wheezing
CPT/HCPCS: 36415; 71046; 80053; 83735; 84439; 84443; 84481; 85025; 86376

== ENCOUNTER → 2025-02-13 | Outpatient (CLI) | payer MEDICAID, SELFPAY ==
--- OUTSIDE RECORDS SUMMARY | 2025-02-13 07:58 | XMS RPT_ITS | CCD ---
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 Nurse's Note: Patient has left knee pain. Patient states her knee has been bothering her for 12 weeks and she has been in PT for 6 weeks. Patient states she can't put weight on it and it hurts to bend it. Patient states that living her leg straight feels better. PFSH Medical History Anxiety disorder Hallucinations Insomnia UTI [...] disease) Father Arthritis Diabetes Myocardial infarction Hypertension Social History Smoking Status: Unknown if ever smoked HPI HPI Chief Complaint: Left Knee pain Details: LINDA LYNN, is a 49 F who presents to the office today for complaints of left knee pain, states she has been attending physical therapy under orthopedics direction though no improvement appreciated. Patient states she is unable to get in with her orthopedics office today and therefore is here for evaluation and hopefully work excuse. She states orthopedics would like her to attend 2 more physical therapy sessions for her before discussing the possibility of ordering an MRI though patient feels that she cannot wait at this point. She notes continued intermittent locking of the left knee though no giving way upon questioning. She notes no other associated symptoms and no other alleviating/aggravating factors. ROS Const Constitutional: No other (As above) Exam Const General: cooperative, healthy appearing and no acute distress Orientation: alert and awake Resp Effort Inspection: normal respiratory effort and able to speak in complete sentences Cardio Rate: regular rate Pulses: radial pulses present Skin General: no rashes or lesions noted Neuro General: patient alert and patient awake Cognition: normal cognition Speech: speech normal Extrem General: full ROM, capillary refill normal and normal (more content not included)... Normal [facility] Inital Evaluation (1) - PTon 01-06-2025 Inital Evaluation (1) - PT [facility] Physical Therapy [facility] [address] [place] [address]. [address] [place] [address] / REHABILITATION SERVICES INITIAL EVALUATION MR#: [id number] Acct: [id number] Name: LINDA LYNN Rep #: [id number] : 1975 49 From: Brendan aBrragan DPT Referring Dr.: LOLA Hawkins Status: REG [facility] Insurance: [facility] SELF PAY INSURANCE Patient's Visit Information Visit Information Visit Information: LINDA LYNN is a 49 year old F referred to Physical Therapy by LOLA Hawkins with a diagnosis of L medial knee pain. Date of Evaluation: 12/30/24 Physical Therapist: Brendan Barragan DPT Visit Plan Frequency: 2x /Week Duration: 6 Weeks Plan: L knee ROM progressing extension as tolerated LLE strengthening focus on quad, glute med and HS. Progress to functional strengthening once able May add in mobs for extension progression. Subjective Subjective: Pt. is here today for her initial evaluation with diagnosis of L knee pain. Pt. reports having some relief since being treated. Pt. taking a long car ride 3 hours, her knee became very stiff then went to move it and had intense pain. She did have an and fluid removed from her knee. Pt. reports wearing her brace, but is unsure if it makes it worse or better. Pt. had to stop taking her anti inflammatory meds due to reports of it causing anxiety attacks. Pt. reports doing some icing, daily. She is back to work. Pt. is standing a lot, and does have some increased lifting at work. Pt. reports no N/T, but does have increased increased burning at medial patellar region. Increased: with sitting and with having her knee bent for longer periods of time. Standing is okay, espcially with wt. shifting to R side. Pain L knee: Pain Intensity (Out of 10): 4 Pain Intensity Range: 1 and 6 Comment: medial aspect Objective Objective: POSTURE: Pt has increased lean to R side in stance, lacks TKE in stance as well. PALPATION: Pt. has increased pain with palpation of L medial knee pain, just medial NEURO: normal ROM: L knee: 0-28-85deg, but seated I was able to get full knee extension, 90deg of flex. Flexion limited secondary to pain. MMT: R knee: ext 40.2#, flex 28.7# L Knee: ext 13.6#, flex 14.6# GAIT: Pt. has marked antalgic pattern with gait, during L stance phase. Pt. lacks TKE during stance phase as well STAIRS: Pt. has marked pain with both ascending and descending during L stance phase. Balance/Special Test Scores Lower Extremity Functional Score: 38 Goals Goal 1:: LTG: Pt. to have increased L knee ROM to full allowing for increased tolerance with all functional mobility. Goal Time Frame: 4-6 Weeks Goal 2:: LTG: Pt. to have symmetrical strength between BLEs. Goal Time Frame: 4-6 Weeks Goal 3:: LTG: Pt. to ambulate with normal gait pattern without increase in L knee pain. Goal Time Frame: 4-6 Weeks Goal 4:: LTG: Pt. to negotiate steps with reciprocal pattern without increase in L knee pain allowing for increased access to all home and work. Goal Time Frame: 4-6 Weeks Rehabilitation Potential Physical Therapy Diagnosis: Pt. has signs and symptoms consistent with L medial knee pain. Pt. has some loss of motion with increased symptoms. She also has marked weakness effecting her functional mobility. Rehabilitation Potential: Good Anticipated Interventions Patient/Client Instruction: Educate patient on: Condition, Plan of Care, Risk Factors and Benefits of Fitness Program For the Purpose of:: To foster healthy habits, To improve decision making, To facilitate caregiver knowledge, To improve self management, To prevent re-injury and To improve ability to perform tasks related to life management Therapeutic Exercise to Include: Strength training, Power training, Flexibilty training, Passive ROM and Active ROM For the Purpose of:: To decrease pain, To decrease swelling/inflammation, To increase ROM, To improve nutrient delivery to tissue, To increase oxygenation perfusion and To improve muscle performance and motor function Manual Therapy Techniques to Include: Mobilization For the Purpose of:: To decrease pain, To decrease swelling/inflammation, To increase ROM, To decrease soft tissue restriction and To increase flexibility/ROM Cryotherapy (ice pack, ice massage): Yes For the Purpose of:: To decrease pain, To decrease swelling/inflammation and To increase ROM Text: Thank you for the opportunity to evaluate your patient. For Medicare and Medicare HMO plans, please review the plan of care and approve it. It will need to be FAXED BACK to us at [phone] for Medicare purposes. For Medicare only, by signing this I certify the plan of care. Please let me know if there are questions or concerns regarding this plan of care. Physician Signature: Date: ____ (more content not included)... Normal [facility] Orthopedic Visit Reporton Orthopedic Visit Report [facility] [address] [place], [place] [id number] OFFICE VISIT Date of Service: 12/17/24 MR#: [id number] Acct: [id number] Name: DEYSI LYNNE EARLENE Rep #: [id number] : 1975 Provider: LOLA mcnulty Age/Sex: 49/F Location: [facility] Status: Signed Intake Vital Signs 11/24/24 13:21 12/17/24 09:22 Height 5 ft 7 in 5 ft 7 in Weight: 270 lb BMI 42.3 Intake Visit Reasons: LEFT KNEE Chief Complaint: Left Knee 3 week follow up Accompanied by: Self Is patient in pain?: Yes Pain scale (1-10): 4 Allergies erythromycin base (From E-Mycin) Allergy (Mild, Verified 12/17/24 09:25) chest pain and swelling hydroxyzine Allergy (Mild, Verified 12/17/24 09:25) elevates heart rate sulfamethoxazole (From Bactrim) Adverse Reaction (Verified 12/17/24:) Hives trimethoprim (From Bactrim) Adverse Reaction (Verified 12/17/24:) Hives Medications ???Medication ???Instructions ???Recorded ???Confirmed ???Type hydrocortisone 2.5 % topical cream 1 applic NE QD-BID PRN rectal pa in 10/06/24 12/17/24 Rx with perineal applicator and bleeding #30 grams ondansetron HCl 4 mg tablet 4 mg PO Q4-6H PRN 10/06/24 5 History pantoprazole 40 mg tablet,delayed 40 mg PO QDAY #90 tabs 10/06/24 0 12/17/24 Rx release ropinirole 2 mg tablet 2 mg PO QHS 10/06/24 12/17/24 Hist ory diclofenac sodium 1 % topical gel 2 g topical Q6H PRN PRN pain 10/3112/17/24 Rx (Voltaren Arthritis Pain) (scale score 4-6) #50 grams acetaminophen 325 mg tablet 325 mg PO ONCE PRN 11/26/24 History (Tylenol) furosemide 20 mg tablet 20 mg PO QDAY 11/26/24 12/17/24 Hi story lisinopril 10 mg tablet 10 mg PO QDAY 11/26/24 12/17/24 Hi story methylprednisolone 4 mg tablets in See Rx Instructions PO PER PKG D IR 11/26/24 12/17/24 Rx a dose pack (Medrol (Lisy)) #21 tabs nabumetone 750 mg tablet 750 mg PO BID #60 tabs 12/17/24 Rx Have you fallen in the past year?: No PFSH Medical History Anxiety disorder Hallucinations Insomnia UTI [...] disease) Father Arthritis Diabetes Myocardial infarction Hypertension Social History Smoking Status: Unknown if ever smoked HPI LEFT KNEE Details: This documentation accurately reflects the service provided and the decisions made by me, Katie Sanches NP-C 12/17/24 0922. Part of today???s visit was documented by Dnaiel Gustafson MA, acting as scribe. LINDA LYNN is a 49 year old F here today for left knee pain and swelling 3 week follow up. Patient states that her pain is a 4 today. Patient reports some improvement in swelling, however pain remains about the same. Minimal effect with cortisone injection at last visit, may be 2 days of improved symptoms. Symptoms are worse with weightbearing activity, work or prolonged standing. Eases some with rest, elevation and as needed ice. Did not notice any effect with p.o. meloxicam over the last 3 weeks. No new injuries. ROS Const All systems reviewed are unremarkable except as noted in H and other (A O x 3, no apparent distress. No recent illness.) ENT Denies dizziness Card Denies chest pain, Denies dyspnea and Denies edema Resp Denies cough, Denies dyspnea and Reports other (No recent URI) GI Reports system reviewed and no additional complaints, except as documented, Denies nausea and Denies vomiting Musc Reports as per HPI, Reports abnormal gait, Reports arthralgias, Reports joint swelling and Reports limited range of motion Neuro Yes abnormal gait, No dizziness and Yes other Psych Reports system reviewed and no additional complaints, except as documented Gal/Lymph Denies easy bleeding and Denies easy bruising Ortho Exam General Gener (more content not included)... Normal [facility] Thyroid Peroxidase ABon 11-30 THYR PEROX AB 17 IU/mL Normal 0-34 [facility] Comment on above: Result Comment: Perf ormed at: - [facility] [address] [id number] Enrollment Processor: Александр Florian PhD, Phone: [phone] Performed By: #### L 501.5200, L3300.6900, L501.37874, L500.4050, L100.0100, L501.9520, L506.0400 ####[facility] [address] [place], [address] Absolute lymphocyte countOrd ered By: Kayla Diego on 12-11-2024 Lymphocytes Auto (Unsp spec) [#/Vol] 1.93 10*3/uL 0.83-4.51 [facility] Absolute neutrophil countOrd ered By: Kayladallas Diego on 12-11-2024 Neutrophils (Bld) [#/Vol] 2.6 10*3/uL 2.0-7.7 [facility] Anion gap in Serum or Plasma Ordered By: Kayla Diego on 12-11-2024 Anion gap [Moles/Vol] 11 mmol/L 5-15 [facility] Automated lymphocyte count a s percentage of total leukocytesOrdered By: Kayla Diego on 12-11-2024 Lymphocytes/100 WBC Auto (Unsp spec) 36.6 % 19-41 [facility] BUN/creatinine ratioOrdered By: Kayladallas Diego on 12-11-2024 Urea nitrogen/Creatinine [Mass ratio] 18.2 mg/mg 10-20 [facility] Basophil percentageOrdered B y: Kayla Diego on 12-11-2024 Basophils/100 WBC (Bld) 0.2 % 0-1 [facility] Bilirubin, totalOrdered By: Kayla Diego on 12-11-2024 Bilirubin [Mass/Vol] 0.25 mg/dL 0.00-1.30 [facility] CBC W/Diff, Automatedon 09- 2-2024 Absolute Lymph 1.93 X10 3/uL Normal 0.83-4.51 [facility] Comment on above: Performed By: #### L 501.5200, L3300.6900, L501.34404, L500.4050, L100.0100, L501.9520, L506.0400 ####[facility] [address] [place], [address] Absolute Neut 2.6 X10 3/uL Normal 2.0-7.7 [facility] Comment on above: Performed By: #### L 501.5200, L3300.6900, L501.65648, L500.4050, L100.0100, L501.9520, L506.0400 ####[facility] [address] [place], [address] Basophils/100 WBC (Bld) 0.2 % Normal 0-1 [facility] Comment on above: Performed By: #### L 501.5200, L3300.6900, L501.70584, L500.4050, L100.0100, L501.9520, L506.0400 ####[facility] [address] [place], [address] Eosinophils/100 WBC (Bld) 2.7 % Normal 0-5 [facility] Comment on above: Performed By: #### L 501.5200, L3300.6900, L501.49089, L500.4050, L100.0100, L501.9520, L506.0400 ####[facility] [address] [place], [address] Erythrocyte distribution width (RBC) [Ratio] 13.2 % Normal 11.6-14.6 [facility] Comment on above: Performed By: #### L 501.5200, L3300.6900, L501.96783, L500.4050, L100.0100, L501.9520, L506.0400 ####[facility] [address] [place], [address] Hematocrit (Bld) [Volume fraction] 39.4 % Normal 37-47 [facility] Comment on above: Performed By: #### L 501.5200, L3300.6900, L501.30996, L500.4050, L100.0100, L501.9520, L506.0400 ####[facility] [address] [place], [address] Hemoglobin (Bld) [Mass/Vol] 12.7 g/dL Normal 12.0-15.0 [facility] Comment on above: Performed By: #### L 501.5200, L3300.6900, L501.47498, L500.4050, L100.0100, L501.9520, L506.0400 ####[facility] [address] [place], [address] IG% 0.600 Normal 0.0-0.9 [facility] Comment on above: Result Comment: IG% - Immature Granulocytes (promyelocytes, myelocytes and metamyelocytes) > 1% indicates that a LEFT SHIFT is Present. Performed By: #### L 501.5200, L3300.6900, L501.94568, L500.4050, L100.0100, L501.9520, L506.0400 ####[facility] [address] [place], [address] Lymphocytes/100 WBC (Bld) 36.6 % Normal 19-41 [facility] Comment on above: Performed By: #### L 501.5200, L3300.6900, L501.80682, L500.4050, L100.0100, L501.9520, L506.0400 ####[facility] [address] [place], [address] MCH (RBC) [Entitic mass] 28.9 pg Normal 27.0-32.0 [facility] Comment on above: Performed By: #### L 501.5200, L3300.6900, L501.72326, L500.4050, L100.0100, L501.9520, L506.0400 ####[facility] [address] [place], [address] MCHC (RBC) [Mass/Vol] 32.2 g/dL Normal 32-36 [facility] Comment on above: Performed By: #### L 501.5200, L3300.6900, L501.60597, L500.4050, L100.0100, L501.9520, L506.0400 ####[facility] [address] [place], [address] MCV (RBC) [Entitic vol] 89.7 fL Normal 81-99 [facility] Comment on above: Performed By: #### L 501.5200, L3300.6900, L501.02505, L500.4050, L100.0100, L501.9520, L506.0400 ####[facility] [address] [place], [address] Monocytes/100 WBC (Bld) 10.2 % High 0-10 [facility] Comment on above: Performed By: #### L 501.5200, L3300.6900, L501.01598, L500.4050, L100.0100, L501.9520, L506.0400 ####[facility] [address] [place], [address] Neutrophils/100 WBC (Bld) 49.7 % Normal 47-70 [facility] Comment on above: Performed By: #### L 501.5200, L3300.6900, L501.17542, L500.4050, L100.0100, L501.9520, L506.0400 ####[facility] [address] [place], [address] Nucleated RBC (Bld) [#/Vol] 0 10*3/uL Normal 0-5 [facility] Comment on above: Performed By: #### L 501.5200, L3300.6900, L501.56398, L500.4050, L100.0100, L501.9520, L506.0400 ####[facility] [address] [place], [address] Platelet mean volume (Bld) [Entitic vol] 9.4 fL Normal 6.2-12.0 [facility] Comment on above: Performed By: #### L 501.5200, L3300.6900, L501.67877, L500.4050, L100.0100, L501.9520, L506.0400 ####[facility] [address] [place], [address] Platelets (Bld) [#/Vol] 252 10*3/uL Normal 150-450 [facility] Comment on above: Performed By: #### L 501.5200, L3300.6900, L501.65187, L500.4050, L100.0100, L501.9520, L506.0400 ####[facility] [address] [place], [address] RBC (Bld) [#/Vol] 4.39 10*6/uL Normal 4.2-5.4 [facility] Comment on above: Performed By: #### L 501.5200, L3300.6900, L501.65877, L500.4050, L100.0100, L501.9520, L506.0400 ####[facility] [address] [place], [address] RDW SD 43.4 fl Normal 35.1-43.9 [facility] Comment on above: Performed By: #### L 501.5200, L3300.6900, L501.53063, L500.4050, L100.0100, L501.9520, L506.0400 ####[facility] [address] [place], [address] WBC (Bld) [#/Vol] 5.3 10*3/uL Normal 4.4-11.0 [facility] Comment on above: Performed By: #### L 501.5200, L3300.6900, L501.32678, L500.4050, L100.0100, L501.9520, L506.0400 ####[facility] [address] [facility] [place], [address] Carbon dioxide, total [Moles /volume] in Central venous bloodOrdered By: Kayla Diego on 12-11-2024 CO2 [Moles/Vol] 24.5 mmol/L 21.0-32.0 [facility] Chest PA and Lateralon 12-11 Chest PA and Lateral [facility] Imaging Services [address] [place], [place] [address] Chest PA and Lateral MR#: [id number] Acct: [id number] Name: LINDA LYNN Rep #: [id number] : 1975 F 49 From: Serenity Almonte MD PCP: LOLA Turner Status: REG CLI Study: Chest PA and Lateral Date of Exam: 12/11/24 Exam# [id number] Ordering Dr: Kayla Diego PROCEDURE: CHEST PA AND LATERAL 12/11/2024 REASON FOR EXAM: WHEEZING TECHNIQUE: Procedure Code: RADCXR Modality: DX Procedure: CHEST PA AND LATERAL COMPARISON: None. FINDINGS: LUNGS AND PLEURA: The lungs are clear. No pleural effusion or pneumothorax. HEART AND MEDIASTINUM: The heart size and mediastinal contours are normal. BONES: No acute osseous abnormality. RAD/Chest PA and Lateral IMPRESSION: NO ACUTE FINDINGS. Reading Location: [facility] CC: LOLA Diego Fiber Artist: Signed Normal [facility] Chloride assayOrdered By: Janie Diego on 12-11-2024 Chloride [Moles/Vol] 106 mmol/L 98-108 [facility] Comprehensive Metabolic Prof ilon 12-11-2024 Albumin [Mass/Vol] 3.6 g/dL Normal 3.5-5.0 [facility] Comment on above: Performed By: #### L 501.5200, L3300.6900, L501.41990, L500.4050, L100.0100, L501.9520, L506.0400 ####[facility] [address] [place], [address] Albumin/Globulin [Mass ratio] 1.1 {ratio} Normal 0.9-2.4 [facility] Comment on above: Performed By: #### L 501.5200, L3300.6900, L501.68300, L500.4050, L100.0100, L501.9520, L506.0400 ####[facility] [address] [place], [address] ALK PHOS 63 U/L Normal 35-104 [facility] Comment on above: Performed By: #### L 501.5200, L3300.6900, L501.70554, L500.4050, L100.0100, L501.9520, L506.0400 ####[facility] [address] [place], [address] ALT [Catalytic activity/Vol] 17 U/L Normal <=34 [facility] Comment on above: Performed By: #### L 501.5200, L3300.6900, L501.45558, L500.4050, L100.0100, L501.9520, L506.0400 ####[facility] [address] [place], [address] AST [Catalytic activity/Vol] 24 U/L Normal <=31 [facility] Comment on above: Performed By: #### L 501.5200, L3300.6900, L501.19972, L500.4050, L100.0100, L501.9520, L506.0400 ####[facility] [address] [place], [address] Bilirubin [Mass/Vol] 0.25 mg/dL Normal 0.00-1.30 [facility] Comment on above: Performed By: #### L 501.5200, L3300.6900, L501.83418, L500.4050, L100.0100, L501.9520, L506.0400 ####[facility] [address] [place], [address] BUN/CRE 18.2 RATIO Normal 10-20 [facility] Comment on above: Performed By: #### L 501.5200, L3300.6900, L501.75527, L500.4050, L100.0100, L501.9520, L506.0400 ####[facility] [address] [place], [address] Calcium [Mass/Vol] 9.5 mg/dL Normal 7.6-11.0 [facility] Comment on above: Performed By: #### L 501.5200, L3300.6900, L501.89588, L500.4050, L100.0100, L501.9520, L506.0400 ####[facility] [address] [place], [address] Chloride [Moles/Vol] 106 mmol/L Normal 98-108 [facility] Comment on above: Performed By: #### L 501.5200, L3300.6900, L501.10748, L500.4050, L100.0100, L501.9520, L506.0400 ####[facility] [address] [place], [address] CO2 [Moles/Vol] 24.5 mmol/L Normal 21.0-32.0 [facility] Comment on above: Performed By: #### L 501.5200, L3300.6900, L501.33590, L500.4050, L100.0100, L501.9520, L506.0400 ####[facility] [address] [place], [address] Creatinine [Mass/Vol] 0.79 mg/dL Normal 0.70-1.20 [facility] Comment on above: Performed By: #### L 501.5200, L3300.6900, L501.85902, L500.4050, L100.0100, L501.9520, L506.0400 ####[facility] [address] [place], [address] GAP 11 Normal 5-15 [facility] Comment on above: Performed By: #### L 501.5200, L3300.6900, L501.77320, L500.4050, L100.0100, L501.9520, L506.0400 ####[facility] [address] [place], [address] GFR/1.73 sq M.predicted among non-blacks MDRD (S/P/Bld) [Vol rate/Area] 91 mL/min/{1.73_m2} Normal >60 [facility] Comment on above: Result Comment: mL/m in/1.73m2 CKD-EPI Creatinine Equation (2020) Performed By: #### L 501.5200, L3300.6900, L501.94106, L500.4050, L100.0100, L501.9520, L506.0400 ####[facility] [address] [place], [address] Globulin (S) [Mass/Vol] 3.3 g/dL Normal 2.2-4.2 [facility] Comment on above: Performed By: #### L 501.5200, L3300.6900, L501.83212, L500.4050, L100.0100, L501.9520, L506.0400 ####[facility] [address] [place], [address] Glucose [Mass/Vol] 101 mg/dL High 70-99 [facility] Comment on above: Performed By: #### L 501.5200, L3300.6900, L501.13244, L500.4050, L100.0100, L501.9520, L506.0400 ####[facility] [address] [place], [address] Potassium [Moles/Vol] 4.2 mmol/L Normal 3.3-5.1 [facility] Comment on above: Performed By: #### L 501.5200, L3300.6900, L501.29159, L500.4050, L100.0100, L501.9520, L506.0400 ####[facility] [address] [place], [address] Sodium [Moles/Vol] 141 mmol/L Normal 133-145 [facility] Comment on above: Performed By: #### L 501.5200, L3300.6900, L501.53356, L500.4050, L100.0100, L501.9520, L506.0400 ####[facility] [address] [place], [address] T PROT 7.0 g/dL Normal 5.9-8.4 [facility] Comment on above: Performed By: #### L 501.5200, L3300.6900, L501.87759, L500.4050, L100.0100, L501.9520, L506.0400 ####[facility] [address] [place], [address] Urea nitrogen [Mass/Vol] 14 mg/dL Normal 4-19 [facility] Comment on above: Performed By: #### L 501.5200, L3300.6900, L501.21569, L500.4050, L100.0100, L501.9520, L506.0400 ####[facility] [address] [place], [address] Eosinophil percentageOrdered By: Kayla Diego on 12-11-2024 Eosinophils/100 WBC (Bld) 2.7 % 0-5 [facility] Erythrocyte distribution wid th ratioOrdered By: Kayla Diego on 12-11-2024 Erythrocyte distribution width (RBC) [Ratio] 13.2 % 11.6-14.6 [facility] Erythrocyte distribution wid th standard deviationOrdered By: Kayla Diego on 12-11-2024 Erythrocyte distribution width (RBC) [Ratio] 43.4 fl 35.1-43.9 [facility] Free T3on 12-11-2024 Free T3 [Mass/Vol] 3.3 pg/mL Normal 2.18-3.98 [facility] Comment on above: Performed By: #### L 501.5200, L3300.6900, L501.25691, L500.4050, L100.0100, L501.9520, L506.0400 ####[facility] [address] [place], [address] Free L3Urnkwae By: Kayla urrutia on 12-11-2024 Free T3 [Mass/Vol] 3.3 pg/mL 2.18-3.98 [facility] Glomerular filtration rate ( GFR) estimation/1.73 sq m using serum, plasma, or whole bOrdered By: Kayla Diego on 12-11-2024 GFR/1.73 sq M.predicted among non-blacks MDRD (S/P/Bld) [Vol rate/Area] 91 mL/min/{1.73_m2} >60 [facility] Comment on above: mL/min/1.73m2 CKD-EP I Creatinine Equation (2020) Hematocrit Auto (Bld) [Volum e fraction]Ordered By: Kayla Diego on 12-11-2024 Hematocrit (Bld) [Volume fraction] 39.4 % 37-47 [facility] Hemoglobin measurementOrdere d By: Kayla Diego on 12-11-2024 Hemoglobin (Bld) [Mass/Vol] 12.7 g/dL 12.0-15.0 [facility] Immature granulocytes/100 WB C Auto (Bld)Ordered By: Kayladallas Diego on 12-11-2024 Immature granulocytes/100 WBC (Bld) 0.600 % 0.0-0.9 [facility] Comment on above: IG% - Immature Granu locytes (promyelocytes, myelocytes and metamyelocytes) > 1% indicates that a LEFT SHIFT is Present. Laboratory - Chemistry and C hemistry - challengeOrdered By: Kayla Diego on 12-11-2024 AST [Catalytic activity/Vol] 24 U/L <32 [facility] MCV (mean corpuscular volume ) determinationOrdered By: Kayladallas Diego on 12-11-2024 MCV (RBC) [Entitic vol] 89.7 fL 81-99 [facility] Magnesiumon 12-11-2024 Magnesium [Mass/Vol] 3.6 mg/dL High 1.5-2.2 [facility] Comment on above: Performed By: #### L 501.5200, L3300.6900, L501.05388, L500.4050, L100.0100, L501.9520, L506.0400 ####[facility] [address] [place], [place], [id number] Magnesium measurement (mass/ volume)Ordered By: Kayla Diego on 12-11-2024 Magnesium (Unsp spec) [Mass/Vol] 3.6 mg/dL High 1.5-2.2 [facility] Mean corpuscular hemoglobin (MCH) determinationOrdered By: Kayla Diego on 12-11-2024 MCH (RBC) [Entitic mass] 28.9 pg 27.0-32.0 [facility] Mean corpuscular hemoglobin concentration (MCHC) determinationOrdered By: Kayla Diego on 12-11-2024 MCHC (RBC) [Mass/Vol] 32.2 g/dL 32-36 [facility] Mean platelet volume determi nationOrdered By: Kayla Diego on 12-11-2024 Platelet mean volume (Bld) [Entitic vol] 9.4 fL 6.2-12.0 [facility] Monocyte percentageOrdered B y: Kayla Diego on 12-11-2024 Monocytes/100 WBC (Bld) 10.2 % High 0-10 [facility] Neutrophil percentageOrdered By: Kayla Diego on 12-11-2024 Neutrophils/100 WBC (Bld) 49.7 % 47-70 [facility] Nucleated red blood cell per centageOrdered By: Kayla Diego on 12-11-2024 Nucleated RBC/100 WBC (Bld) [Ratio] 0 % 0-5 [facility] Platelet countOrdered By: Janie Diego on 12-11-2024 Platelets (Bld) [#/Vol] 252 10*3/uL 150-450 [facility] Potassium measurement (mass/ volume)Ordered By: Kayla Diego on 12-11-2024 Potassium (Unsp spec) [Mass/Vol] 4.2 mmol/L 3.3-5.1 [facility] RBC Auto (Bld) [#/Vol]Ordere d By: Kayla Diego on 12-11-2024 RBC (Bld) [#/Vol] 4.39 10*6/uL 4.2-5.4 [facility] Serum creatinine measurement (mass/volume)Ordered By: Kayla Diego on 12-11-2024 Creatinine [Mass/Vol] 0.79 mg/dL 0.70-1.20 [facility] Serum globulin measurementOr dered By: Kayla Diego on 12-11-2024 Globulin (S) [Mass/Vol] 3.3 g/dL 2.2-4.2 [facility] Serum glucose measurement (m ass/volume)Ordered By: Kayla Diego on 12-11-2024 Glucose [Mass/Vol] 101 mg/dL High 70-99 [facility] Serum or plasma alanine valdivia otransferase (ALT) measurementOrdered By: Kayla Diego on 12-11-2024 ALT [Catalytic activity/Vol] 17 U/L <35 [facility] Serum or plasma albumin marilee urement (mass/volume)Ordered By: Kayla Diego on 12-11-2024 Albumin [Mass/Vol] 3.6 g/dL 3.5-5.0 [facility] Serum or plasma albumin/glob ulin mass ratioOrdered By: Kayladallas Diego on 12-11-2024 Albumin/Globulin [Mass ratio] 1.1 {ratio} 0.9-2.4 [facility] Serum or plasma alkaline emerson sphatase measurementOrdered By: Kayla Diego on 12-11-2024 ALP [Catalytic activity/Vol] 63 U/L 35-104 [facility] Serum or plasma calcium marilee urement (mass/volume)Ordered By: Kayla Diego on 12-11-2024 Calcium [Mass/Vol] 9.5 mg/dL 7.6-11.0 [facility] Serum or plasma thyroperoxid ase antibody assay (units/volume)Ordered By: Kayla Diego on 12-11-2024 TPO Ab Qn 17 [IU]/mL 0-34 [facility] Comment on above: Performed at: [place] [id number] Director: Александр Florian PhD, Phone: [phone] Serum or plasma urea nitroge n measurement (mass/volume)Ordered By: Kayla Diego on 12-11-2024 Urea nitrogen [Mass/Vol] 14 mg/dL 4-19 [facility] Sodium levelOrdered By: Amaris Diego on 12-11-2024 Sodium [Moles/Vol] 141 mmol/L 133-145 [facility] T4 Free Directon 12-11-2024 T4 FREE DIRECT 1.20 ng/dL Normal 0.76-1.46 [facility] Comment on above: Performed By: #### L 501.5200, L3300.7430, L501.19135, L500.4050, L100.0100, L501.9520, L506.0400 ####[facility] [address] [place], [place], [id number] T4 freeOrdered By: Kayla urrutia on 12-11-2024 Free T4 [Mass/Vol] 1.20 ng/dL 0.76-1.46 [facility] TSH DL <= 0.005 mIU/L QnOrde red By: Kayla Diego on 12-11-2024 TSH Qn 1.610 uIU/mL 0.300-4.200 [facility] Thyroid Stim Hormone (TSH)on 12-11-2024 TSH 1.610 uIU/mL Normal 0.300-4.200 [facility] Comment on above: Performed By: #### L 501.5200, L3300.6900, L501.85717, L500.4050, L100.0100, L501.9520, L506.0400 ####[facility] [address] [place], [place], [address] Total proteinOrdered By: Rey Diego on 12-11-2024 Protein [Mass/Vol] 7.0 g/dL 5.9-8.4 [facility] White blood cell (WBC) count Ordered By: Kayla Diego on 12-11-2024 WBC (Bld) [#/Vol] 5.3 10*3/uL 4.4-11.0 [facility] CNOVon 12-05-2024 CNOV Office Visit ([facility]) -------- LINDA LYNN ([id number]) 1975 F Date Time Provider Department 12/05/24 1:45 PM ERIC BULL During your visit today, we recorded the following information about you: Temperature Pulse Respiration Blood pressure 98.4 degrees 88/minute 18/minute 106/75 Weight 122.6 kg Eric Bull APRN.CNP 12/05/2024 2:26 PM Signed [facility] Subjective Linda Lynn is a 49 year old female. Patient presents with: Sore Throat: MCKEON, chest congestion x1 day Sore Throat The patient is a 49-year-old female with a history of a heart murmur, presenting with a sore throat, headache, and fever. Sore Throat and Headache: - Onset yesterday. - Sore throat worsens with swallowing. - Associated with headache and subjective fever. - Denies myalgias, cough, or congestion. - Reports green mucus production, but denies chest congestion. - Denies facial pressure. - No history of allergies or sinus issues. Heart Murmur: - Known history of heart murmur. Review of Systems HENT: Positive for sore throat. Constitutional: (+) fever Head: (+) headache Ears/Nose/Mouth/Throat: (+) sore throat, (-) nasal congestion, (-) facial pressure Respiratory: (+) green sputum, (-) cough, (-) chest congestion Musculoskeletal: (-) myalgia Objective BP 106/75 Pulse 88 Temp 36.9 ?C (98.4 ?F) Resp 18 Wt 122.6 kg (270 lb 4.5 oz) SpO2 97% Physical Exam General: No acute distress. HEENT: Erythematous pharynx, no abscesses or swelling noted. CV: Cardiac murmur auscultated. { 1. Sore throat (J02.9) - Acute onset with associated headache, subjective fever, and green mucus drainage; no cough, congestion, or facial pressure. - Throat exam reveals erythema without abscess or swelling. - Strep test negative. - Patient declines viral testing at this time. - Supportive care at home. - Follow-up in 10-14 days if symptoms do not improve. and Recording using ambient [employer] software for draft documentation of the visit was discussed with the patient/authorized assisted sales representative; all questions welcomed and answered. Patient/authorized assisted sales representative agreed to proceed History and Record Review External record(s) reviewed: no prior records. Disposition The patient was discharged. Procedures Allergies As of Date: 12/05/2024 Noted Allergy Reaction ERYTHROMYCIN 01/09/2012 4 - Hives 8 - GI Upset 14 - Other: See Comments 12 - Shortness of Breath Comments: Heart palpitations BACTRIM (SULFAMETHOXAZOLE-TRIMET H*12/05/2024 4 - Hives HYDROXYZINE 12/05/2024 14 - Other: See Comments Comments: Elevated HR Date Reviewed: 12/05/2024 Reviewed by: Mary Fang MA - Fully Assessed Reason for Visit: Sore Throat [200] Cmt: MCKEON, chest congestion x1 day Primary Visit Diagnosis:Sore throat [J02.9] Order(s):STREP A MOLECULAR (POC) [9011018] Order #: [id number]. #:[id number] Prescriptions as of 12/05/2024 - lisinopril (ZESTRIL) 10 mg tablet Take 1 tablet by mouth once daily. - ondansetron orally disintegrating (ZOFRAN ODT) 4 mg disintegrating tablet DISSOLVE 1 TABLET ON TOP OF TONGUE EVERY 6 TO 8 HOURS NEEDED FOR NAUSEA - pantoprazole DR (PROTONIX) 40 mg tablet - rOPINIRole ER (REQUIP XL) 2 mg tablet Take 2 mg by mouth daily at bedtime. - furosemide (LASIX) 20 mg tablet Take 1 tablet by mouth once daily. - levonorgestrel (MIRENA) 21 mcg/24hr (up to 8 yrs) 52 mg IUD 1 Intra Uterine Device by INTRAUTERINE route. - meloxicam (MOBIC) 15 mg tablet TAKE 1 TABLET BY MOUTH EVERY DAY. Start after completing steroid pack, avoid others NSAIDs while taking - IODINE PO Take by mouth. Problem List As Of Date: 12/05/2024 (None) Letter Text Encounter Status:Closed by ERIC BULL on 12/05/24 Normal [facility] STREP A MOLECULAR (POC)on Procedural Control Valid [facility] Strep A (POCT) Negative Negative [facility] Orthopedic Visit Reporton Orthopedic Visit Report [facility] [address] [place] [address] OFFICE VISIT Date of Service: 11/26/24 MR#: [id number] Acct: [id number] Name: LINDA LYNN Rep #: [id number] : 1975 Provider: LOLA mcnulty Age/Sex: 48/F Location: [facility] Status: Signed Intake Vital Signs 11/22/24 12:35 11/24/24 13:21 Height 5 ft 7 in 5 ft 7 in Intake Visit Reasons: LEFT KNEE Chief Complaint: Left Knee ER Follow-Up Accompanied by: Self Is patient in pain?: Yes Pain scale (1-10): 6 Allergies erythromycin base (From E-Mycin) Allergy (Mild, Verified 11/26/24 15:04) chest pain and swelling hydroxyzine Allergy (Mild, Verified 11/26/24 15:04) elevates heart rate sulfamethoxazole (From Bactrim) Adverse Reaction (Verified 11/26/24 15:04) Hives trimethoprim (From Bactrim) Adverse Reaction (Verified 11/26/24 15:04) Hives Medications ???Medication ???Instructions ???Recorded ???Confirmed ???Type hydrocortisone 2.5 % topical cream 1 applic NE QD-BID PRN rectal pa in 10/06/24 11/26/24 Rx with perineal applicator and bleeding #30 grams ondansetron HCl 4 mg tablet 4 mg PO Q4-6H PRN 10/06/24 5 History pantoprazole 40 mg tablet,delayed 40 mg PO QDAY #90 tabs 10/06/24 0 11/26/24 Rx release ropinirole 2 mg tablet 2 mg PO QHS 10/06/24 11/26/24 Hist ory diclofenac sodium 1 % topical gel 2 g topical Q6H PRN PRN pain 10/3111/26/24 Rx (Voltaren Arthritis Pain) (scale score 4-6) #50 grams acetaminophen 325 mg tablet 325 mg PO ONCE PRN 11/26/24 History (Tylenol) furosemide 20 mg tablet 20 mg PO QDAY 11/26/24 11/26/24 Hi story lisinopril 10 mg tablet 10 mg PO QDAY 11/26/24 11/26/24 Hi story meloxicam 15 mg tablet 15 mg PO QDAY #30 tabs 11/26/24 Rx methylprednisolone 4 mg tablets in See Rx Instructions PO PER PKG D IR 11/26/24 11/26/24 Rx a dose pack (Medrol (Lisy)) #21 tabs PFSH Medical History Anxiety disorder Hallucinations Insomnia UTI [...] disease) Father Arthritis Diabetes Myocardial infarction Hypertension Social History Smoking Status: Unknown if ever smoked HPI LEFT KNEE Details: This documentation accurately reflects the service provided and the decisions made by me, Katie Sanches, [employer] DEVELOPER-C 11/26/24 8627. Part of today???s visit was documented by Alessandra Banda ATC, acting as scribe. LINDA LYNN is a 48 year old F here today for left knee pain. Patient was seen in [facility] ER on 11/22/2024. She rates her pain a 6/10 today. She denies any specific injury to the knee but has had issues with the knees in the past. She states about a month ago she was sitting in the car and it was slightly bent and then she noticed increased pain. She states the other day when she went to the ER the knee started bothering her a lot more. After the hospital she began to notice swelling and bruising and now she notes a bump on the anterior lateral aspect of the upper part of the lower leg. She notes that she has been having grinding in the knee. She states she has had cortisone injections in [place] and her most recent was about a year ago. She states these have given her relief in the past but denies any injections in the right knee. She states the knee does feel unsteady and occasionally does give out on her. She has been taking Tylenol/Ibuprofen for the pain. She has done physical therapy in the past in [place] but has been about 8-10 years ago now. She denies any prior surgeries. Bracing, now bruised where brace was. Works FT in [employer] on concrete floors. Hx cortisone injections, last 1 yr ago helped. Feels, twisted all the time, last MRI about 5 yrs ago, unsure of results No instability or mechanical sx, occasional sensation of give way. ROS Const All systems reviewe (more content not included)... Normal [facility] Emergency Department Summary on 11-22-2024 Emergency Department Summary [facility] Medical Records Department [address] [place] [address] Emergency Department Summary 11/22/24 MR#: [id number] Acct: [id number] Name: LINDA LYNN Rep #: [id number] : 1975 48 From: Tom Donald DO [...] ago. Patient denies any fevers or chills [facility] Medical History Anxiety disorder Hallucinations Insomnia UTI (urinary tract infection) Back pain Abdominal pain Methamphetamine use Suicidal ideation RUQ pain PTSD (post-traumatic stress disorder) Medial meniscus tear Chondromalacia of knee Migraine with aura and without status migrainosus, not intractable Drug overdose, intentional Hypokalemia Home Medications ???Medication ???Instructions ???Recorded ???Last Taken ???Type all jeb millery melts PO PRN 10/06/24 Unknown History hydrocortisone 2.5 % topical cream 1 applic NE QD-BID PRN rectal pa in 10/06/24 Unknown [...] following commands and that she was at [facility] (more content not included)... Normal [facility] Knee 4 or More Viewson 11-22 Knee 4 or More Views [facility] Imaging Services [address] [place], [place] [address] Knee 4 or More Views MR#: [id number] Acct: [id number] Name: LINDA LYNN Rep #: [id number] : 1975 F 48 From: Cheli Mills MD PCP: LOLA Turner Status: REG ER Study: Knee 4 or More Views Date of Exam: 11/22/24 Exam# [id number] Ordering Dr: Tom Donald DO PROCEDURE: KNEE 4 OR MORE VIEWS 11/22/2024 REASON FOR EXAM: PAIN, 3 WEEKS TECHNIQUE: KNEE 4 OR MORE VIEWS Laterality: Left COMPARISON: None FINDINGS: Bones: No acute bony abnormalities. Joints: Unremarkable. Effusion: No effusion. Soft tissues: No soft tissue abnormalities. Other: RAD/Knee 4 or More Views IMPRESSION: No acute osseous abnormalities. Reading Location: [facility] CC: JAVA SYBASE DEVELOPERCayla Diego; Dr. Tom Donald DO Fiber Artist: Signed Normal [facility] Cerv Spine 4 or 5 Viewson Cerv Spine 4 or 5 Views [facility] Imaging Services [address] [place] [address] Cerv Spine 4 or 5 Views MR#: [id number] Acct: [id number] Name: LINDA LYNN Rep #: [id number] : 1975 F 48 From: Nestor Rios DO PCP: LOLA Turner Status: REG CLI Study: Cerv Spine 4 or 5 Views Date of Exam: 11/21/24 Exam# [id number] Ordering Dr: Paulo Carpenter D.C. PROCEDURE: CERV [...] stenosis as detailed above Disclaimer: Reading Location[facility] CC: CHRISTOPHER Carpenter; LOLA Diego Fiber Artist: Signed Normal [facility] PAP IG HPV APTIMA 16/18,45on 10-20-2024 ADEQ Comment Normal . [facility] Comment on above: Order Comment: Speci men Comment: [id number] Comment: Source.............CervixSpecimen Comment: Other..............OtherSpecimen Comment: No. of containers..01 ThinPrep Vial Result Comment: Sati sfactory for evaluation. Endocervical and/or squamous metaplastic cells (endocervical component) are present. Performed By: #### L 7400.0280, L3410.9992, L400.0001, L100.0100, M100.2200, L503.7505, L500.4050 ####[facility] [address] [place], [place], [id number] COMM . Normal . [facility] Comment on above: Order Comment: Speci men Comment: [id number] Comment: Source.............CervixSpecimen Comment: Other..............OtherSpecimen Comment: No. of containers..01 ThinPrep Vial Performed By: #### L 7400.0280, L3410.9992, L400.0001, L100.0100, M100.2200, L503.7505, L500.4050 ####[facility] [address] [place], [address] COMMENT Comment Normal . [facility] Comment on above: Order Comment: Speci men Comment: [id number] Comment: Source.............CervixSpecimen Comment: Other..............OtherSpecimen Comment: No. of containers..01 ThinPrep Vial Result Comment: This liquid based ThinPrep(R) pap test was screened with the use of an image guided system. Performed By: #### L 7400.0280, L3410.9992, L400.0001, L100.0100, M100.2200, L503.7505, L500.4050 ####[facility] [address] [place], [place], [id number] DIAG Comment Normal . [facility] Comment on above: Order Comment: Speci men Comment: [id number] Comment: Source.............CervixSpecimen Comment: Other..............OtherSpecimen Comment: No. of containers..01 ThinPrep Vial Result Comment: NEGA TIVE FOR INTRAEPITHELIAL LESION OR MALIGNANCY. Performed By: #### L 7400.0280, L3410.9992, L400.0001, L100.0100, M100.2200, L503.7505, L500.4050 ####[facility] [address], [address] HPV APTIMA, HR Negative Normal Negative [facility] Comment on above: Order Comment: Speci men Comment: [id number] Comment: Source.............CervixSpecimen Comment: Other..............OtherSpecimen Comment: No. of containers..01 ThinPrep Vial Result Comment: This nucleic acid amplification test detects fourteen high- risk HPV types (16,18,31,33,35,39,45,51,52,56,58,59,66,68) without differentiation. Performed By: #### L 7400.0280, L3410.9992, L400.0001, L100.0100, M100.2200, L503.7505, L500.4050 ####[facility] [address] [place], [address] HPV Ana Rfx Comment Normal . [facility] Comment on above: Order Comment: Speci men Comment: [id number] Comment: Source.............CervixSpecimen Comment: Other..............OtherSpecimen Comment: No. of containers..01 ThinPrep Vial Result Comment: Crit eria not met, HPV Genotype not performed. Performed at: [facility], [place] [id number] Enrollment Processor: Liz Brown MD, Phone: [phone] Performed at: = - [facility] [address] Street[address], [place] [id number] Enrollment Processor: Liz Brown MD, Phone: [phone] Performed By: #### L 7400.0280, L3410.9992, L400.0001, L100.0100, M100.2200, L503.7505, L500.4050 ####[facility] [address] [place], [place], [id number] PAPSMR Comment Normal . [facility] Comment on above: Order Comment: Speci men Comment: [id number] Comment: Source.............CervixSpecimen Comment: Other..............OtherSpecimen Comment: No. of [...] reports do occur. Performed By: #### L 7400.0280, L3410.9992, L400.0001, L100.0100, M100.2200, L503.7505, L500.4050 ####[facility] [address] [place], [place], [address] PERFORM Comment Normal . [facility] Comment on above: Order Comment: Speci men Comment: [id number] Comment: Source.............CervixSpecimen Comment: Other..............OtherSpecimen Comment: No. of containers..01 ThinPrep Vial Result Comment: Reid Landa Financial Aid Advisor (ASCP) Performed By: #### L 7400.0280, L3410.9992, L400.0001, L100.0100, M100.2200, L503.7505, L500.4050 ####[facility] [address] [place], [address] L3410.9992on 10-19-2024 [facility] COMMENT Normal . [facility] Comment on above: Order Comment: STEPHANY RUVALCABA/[id number] [id number]+ Result Comment: Test Ordered: [id number] NuSwab Vaginitis Plus (VG+) Test(s) 476402- Atopobium vaginae; 905198- BVAB 2; 468964- Megasphaera 1 was developed and its performance characteristics determined by [facility]. It has not been cleared or approved by the Food and Drug Administration. Test(s) 129985-Oiiyyig albicans, GENET; 396075- Susanne glabrata, GENET was developed and its performance characteristics determined by [facility]. It has not been cleared or approved [...] =G Reference Range: Negative Performed at: =[facility] [id number] Enrollment Processor: Liz Brown MD, Phone: [phone] Performed at: [address] [id number] Enrollment Processor: Александр Florian PhD, Phone: [phone] Performed By: #### L 7400.0280, L3410.9992, L400.0001, L100.0100, M100.2200, L503.7505, L500.4050 ####[facility] [address] [place], [place], [id number] Urine Cultureon 10-16-2024 [facility] Mixed Gram Positive Organisms [place] Count 25,000-50,000 MIXC Mixed contaminants. Submit a new specimen if indicated. Normal [facility] Comment on above: Performed By: #### L 7400.0280, L3410.9992, L400.0001, L100.0100, M100.2200, L503.7505, L500.4050 ####[facility] [address] [place], [place], [address] Absolute lymphocyte countOrd ered By: Kayla Diego on 10-15-2024 Lymphocytes Auto (Unsp spec) [#/Vol] 1.73 10*3/uL 0.83-4.51 [facility] Absolute neutrophil countOrd ered By: Kayla Diego on 10-15-2024 Neutrophils (Bld) [#/Vol] 2.1 10*3/uL 2.0-7.7 [facility] Anion gap in Serum or Plasma Ordered By: Kayla Diego on 10-15-2024 Anion gap [Moles/Vol] 10 mmol/L 5-15 [facility] Automated lymphocyte count a s percentage of total leukocytesOrdered By: Kayla Diego on 10-15-2024 Lymphocytes/100 WBC Auto (Unsp spec) 39.8 % 19-41 [facility] BUN/creatinine ratioOrdered By: Kayla Diego on 10-15-2024 Urea nitrogen/Creatinine [Mass ratio] 11.6 mg/mg 10-20 [facility] Basophil percentageOrdered B y: Kayla Diego on 10-15-2024 Basophils/100 WBC (Bld) 0.2 % 0-1 [facility] Bilirubin Test strip Ql (U)O rdered By: Kayla Diego on 07-17-2025 Bilirubin Ql (U) Negative Negative [facility] Bilirubin, totalOrdered By: Kayla Diego on 10-15-2024 Bilirubin [Mass/Vol] 0.27 mg/dL 0.00-1.30 [facility] CBC W/Diff, Automatedon 09-29 Absolute Lymph 1.73 X10 3/uL Normal 0.83-4.51 [facility] Comment on above: Performed By: #### L 7400.0280, L3410.9992, L400.0001, L100.0100, M100.2200, L503.7505, L500.4050 ####[facility] [address] [place], [address] Absolute Neut 2.1 X10 3/uL Normal 2.0-7.7 [facility] Comment on above: Performed By: #### L 7400.0280, L3410.9992, L400.0001, L100.0100, M100.2200, L503.7505, L500.4050 ####[facility] [address] [place], [address] Basophils/100 WBC (Bld) 0.2 % Normal 0-1 [facility] Comment on above: Performed By: #### L 7400.0280, L3410.9992, L400.0001, L100.0100, M100.2200, L503.7505, L500.4050 ####[facility] [address] [place], [address] Eosinophils/100 WBC (Bld) 1.4 % Normal 0-5 [facility] Comment on above: Performed By: #### L 7400.0280, L3410.9992, L400.0001, L100.0100, M100.2200, L503.7505, L500.4050 ####[facility] [address] [place], [address] Erythrocyte distribution width (RBC) [Ratio] 13.7 % Normal 11.6-14.6 [facility] Comment on above: Performed By: #### L 7400.0280, L3410.9992, L400.0001, L100.0100, M100.2200, L503.7505, L500.4050 ####[facility] [address] [place], [address] Hematocrit (Bld) [Volume fraction] 39.7 % Normal 37-47 [facility] Comment on above: Performed By: #### L 7400.0280, L3410.9992, L400.0001, L100.0100, M100.2200, L503.7505, L500.4050 ####[facility] [address] [place], [address] Hemoglobin (Bld) [Mass/Vol] 12.8 g/dL Normal 12.0-15.0 [facility] Comment on above: Performed By: #### L 7400.0280, L3410.9992, L400.0001, L100.0100, M100.2200, L503.7505, L500.4050 ####[facility] [address] [place], [address] IG% 0.500 Normal 0.0-0.9 [facility] Comment on above: Result Comment: IG% - Immature Granulocytes (promyelocytes, myelocytes and metamyelocytes) > 1% indicates that a LEFT SHIFT is Present. Performed By: #### L 7400.0280, L3410.9992, L400.0001, L100.0100, M100.2200, L503.7505, L500.4050 ####[facility] [address] [place], [address] Lymphocytes/100 WBC (Bld) 39.8 % Normal 19-41 [facility] Comment on above: Performed By: #### L 7400.0280, L3410.9992, L400.0001, L100.0100, M100.2200, L503.7505, L500.4050 ####[facility] [address] [place], [address] MCH (RBC) [Entitic mass] 29.1 pg Normal 27.0-32.0 [facility] Comment on above: Performed By: #### L 7400.0280, L3410.9992, L400.0001, L100.0100, M100.2200, L503.7505, L500.4050 ####[facility] [address] [place], [address] MCHC (RBC) [Mass/Vol] 32.2 g/dL Normal 32-36 [facility] Comment on above: Performed By: #### L 7400.0280, L3410.9992, L400.0001, L100.0100, M100.2200, L503.7505, L500.4050 ####[facility] [address] [place], [address] MCV (RBC) [Entitic vol] 90.2 fL Normal 81-99 [facility] Comment on above: Performed By: #### L 7400.0280, L3410.9992, L400.0001, L100.0100, M100.2200, L503.7505, L500.4050 ####[facility] [address] [place], [address] Monocytes/100 WBC (Bld) 9.2 % Normal 0-10 [facility] Comment on above: Performed By: #### L 7400.0280, L3410.9992, L400.0001, L100.0100, M100.2200, L503.7505, L500.4050 ####[facility] [address] [place], [address] Neutrophils/100 WBC (Bld) 48.9 % Normal 47-70 [facility] Comment on above: Performed By: #### L 7400.0280, L3410.9992, L400.0001, L100.0100, M100.2200, L503.7505, L500.4050 ####[facility] [address] [place], [address] Nucleated RBC (Bld) [#/Vol] 0 10*3/uL Normal 0-5 [facility] Comment on above: Performed By: #### L 7400.0280, L3410.9992, L400.0001, L100.0100, M100.2200, L503.7505, L500.4050 ####[facility] [address] [place], [address] Platelet mean volume (Bld) [Entitic vol] 9.6 fL Normal 6.2-12.0 [facility] Comment on above: Performed By: #### L 7400.0280, L3410.9992, L400.0001, L100.0100, M100.2200, L503.7505, L500.4050 ####[facility] [address] [place], [address] Platelets (Bld) [#/Vol] 253 10*3/uL Normal 150-450 [facility] Comment on above: Performed By: #### L 7400.0280, L3410.9992, L400.0001, L100.0100, M100.2200, L503.7505, L500.4050 ####[facility] [address] [place], [address] RBC (Bld) [#/Vol] 4.40 10*6/uL Normal 4.2-5.4 [facility] Comment on above: Performed By: #### L 7400.0280, L3410.9992, L400.0001, L100.0100, M100.2200, L503.7505, L500.4050 ####[facility] [address] [place], [address] RDW SD 45.6 fl High 35.1-43.9 [facility] Comment on above: Performed By: #### L 7400.0280, L3410.9992, L400.0001, L100.0100, M100.2200, L503.7505, L500.4050 ####[facility] [address] [place], [address] WBC (Bld) [#/Vol] 4.4 10*3/uL Normal 4.4-11.0 [facility] Comment on above: Performed By: #### L 7400.0280, L3410.9992, L400.0001, L100.0100, M100.2200, L503.7505, L500.4050 ####[facility] [address] [facility], [address] Carbon dioxide, total [Moles /volume] in Central venous bloodOrdered By: Kayla Diego on 10-15-2024 CO2 [Moles/Vol] 26.1 mmol/L 21.0-32.0 [facility] Cervical or vaginal specimen microscopic examination by liquid based cytology (reportOrdered By: Kayla Diego on 10-15-2024 Cytology report Cyto stain.thin prep Doc (Cvx/Vag) Comment . [facility] Comment on above: Criteria not met, HP V Genotype not performed.Performed at: - [address] [id number] Director: Liz Brown MD, Phone: [phone] at: = - [address] [id number] Director: Liz Brown MD, Phone: [phone] Cervical or vagninal specime n microscopic examination by cytology stain (reported asOrdered By: Kayla Diego on 10-15-2024 Cytology report Cyto stain Doc (Cvx/Vag) Comment . [facility] Comment on above: The Pap smear is a s creening test designed to aid in thedetection of premalignant and malignant conditions of theuterine cervix. It is not a diagnostic procedure andshould not be used as the sole means of detecting cervicalcancer. Both false-positive and false-negative reports dooccur. Chloride assayOrdered By: Janie Diego on 10-15-2024 Chloride [Moles/Vol] 102 mmol/L 98-108 [facility] Comprehensive Metabolic Prof ilon 10-15-2024 Albumin [Mass/Vol] 3.8 g/dL Normal 3.5-5.0 [facility] Comment on above: Performed By: #### L 7400.0280, L3410.9992, L400.0001, L100.0100, M100.2200, L503.7505, L500.4050 ####[facility] [address] [place], [address] Albumin/Globulin [Mass ratio] 1.1 {ratio} Normal 0.9-2.4 [facility] Comment on above: Performed By: #### L 7400.0280, L3410.9992, L400.0001, L100.0100, M100.2200, L503.7505, L500.4050 ####[facility] [address] [place], [address] ALK PHOS 77 U/L Normal 35-104 [facility] Comment on above: Performed By: #### L 7400.0280, L3410.9992, L400.0001, L100.0100, M100.2200, L503.7505, L500.4050 ####[facility] [address] [place], [address] ALT [Catalytic activity/Vol] 18 U/L Normal <=34 [facility] Comment on above: Performed By: #### L 7400.0280, L3410.9992, L400.0001, L100.0100, M100.2200, L503.7505, L500.4050 ####[facility] [address] [place], [address] AST [Catalytic activity/Vol] 25 U/L Normal <=31 [facility] Comment on above: Performed By: #### L 7400.0280, L3410.9992, L400.0001, L100.0100, M100.2200, L503.7505, L500.4050 ####[facility] [address] [place], [address] Bilirubin [Mass/Vol] 0.27 mg/dL Normal 0.00-1.30 [facility] Comment on above: Performed By: #### L 7400.0280, L3410.9992, L400.0001, L100.0100, M100.2200, L503.7505, L500.4050 ####[facility] [address] [place], [address] BUN/CRE 11.6 RATIO Normal 10-20 [facility] Comment on above: Performed By: #### L 7400.0280, L3410.9992, L400.0001, L100.0100, M100.2200, L503.7505, L500.4050 ####[facility] [address] [place], [address] Calcium [Mass/Vol] 9.5 mg/dL Normal 7.6-11.0 [facility] Comment on above: Performed By: #### L 7400.0280, L3410.9992, L400.0001, L100.0100, M100.2200, L503.7505, L500.4050 ####[facility] [address] [place], [address] Chloride [Moles/Vol] 102 mmol/L Normal 98-108 [facility] Comment on above: Performed By: #### L 7400.0280, L3410.9992, L400.0001, L100.0100, M100.2200, L503.7505, L500.4050 ####[facility] [address] [place], [address] CO2 [Moles/Vol] 26.1 mmol/L Normal 21.0-32.0 [facility] Comment on above: Performed By: #### L 7400.0280, L3410.9992, L400.0001, L100.0100, M100.2200, L503.7505, L500.4050 ####[facility] [address] [place], [address] Creatinine [Mass/Vol] 0.72 mg/dL Normal 0.70-1.20 [facility] Comment on above: Performed By: #### L 7400.0280, L3410.9992, L400.0001, L100.0100, M100.2200, L503.7505, L500.4050 ####[facility] [address] [place], [address] GAP 10 Normal 5-15 [facility] Comment on above: Performed By: #### L 7400.0280, L3410.9992, L400.0001, L100.0100, M100.2200, L503.7505, L500.4050 ####[facility] [address] [place], [address] GFR/1.73 sq M.predicted among non-blacks MDRD (S/P/Bld) [Vol rate/Area] 104 mL/min/{1.73_m2} Normal >60 [facility] Comment on above: Result Comment: mL/m in/1.73m2 CKD-EPI Creatinine Equation (2020) Performed By: #### L 7400.0280, L3410.9992, L400.0001, L100.0100, M100.2200, L503.7505, L500.4050 ####[facility] [address] [place], [address] Globulin (S) [Mass/Vol] 3.5 g/dL Normal 2.2-4.2 [facility] Comment on above: Performed By: #### L 7400.0280, L3410.9992, L400.0001, L100.0100, M100.2200, L503.7505, L500.4050 ####[facility] [address] [place], [address] Glucose [Mass/Vol] 110 mg/dL High 70-99 [facility] Comment on above: Performed By: #### L 7400.0280, L3410.9992, L400.0001, L100.0100, M100.2200, L503.7505, L500.4050 ####[facility] [address] [place], [address] Potassium [Moles/Vol] 4.2 mmol/L Normal 3.3-5.1 [facility] Comment on above: Performed By: #### L 7400.0280, L3410.9992, L400.0001, L100.0100, M100.2200, L503.7505, L500.4050 ####[facility] [address] [place], [address] Sodium [Moles/Vol] 138 mmol/L Normal 133-145 [facility] Comment on above: Performed By: #### L 7400.0280, L3410.9992, L400.0001, L100.0100, M100.2200, L503.7505, L500.4050 ####[facility] [address] [place], [address] T PROT 7.3 g/dL Normal 5.9-8.4 [facility] Comment on above: Performed By: #### L 7400.0280, L3410.9992, L400.0001, L100.0100, M100.2200, L503.7505, L500.4050 ####[facility] [address] [place], [address] Urea nitrogen [Mass/Vol] 8 mg/dL Normal 4-19 [facility] Comment on above: Performed By: #### L 7400.0280, L3410.9992, L400.0001, L100.0100, M100.2200, L503.7505, L500.4050 ####[facility] [address] [place], [address] Detection in cervical specim en of any of human papilloma virus (HPV) 16, 18, 31, 33,Ordered By: Kayla Diego on 10-15-2024 HPV 16+18+31+33+35+39+45+ 51+52+56+58+59+66+68 DNA Probe+sig amp Ql (Cvx) Negative Negative [facility] Comment on above: This nucleic acid am plification test detects fourteen high- risk HPV types (16,18,31,33,35,39,45,51,52,56,58,59,66,68)without differentiation. Eosinophil percentageOrdered By: Kayla Diego on 10-15-2024 Eosinophils/100 WBC (Bld) 1.4 % 0-5 [facility] Erythrocyte distribution wid th ratioOrdered By: Kayla Diego on 10-15-2024 Erythrocyte distribution width (RBC) [Ratio] 13.7 % 11.6-14.6 [facility] Erythrocyte distribution wid th standard deviationOrdered By: Kayla Diego on 10-15-2024 Erythrocyte distribution width (RBC) [Ratio] 45.6 fl High 35.1-43.9 [facility] Glomerular filtration rate ( GFR) estimation/1.73 sq m using serum, plasma, or whole bOrdered By: Kayla Diego on 10-15-2024 GFR/1.73 sq M.predicted among non-blacks MDRD (S/P/Bld) [Vol rate/Area] 104 mL/min/{1.73_m2} >60 [facility] Comment on above: mL/min/1.73m2 CKD-EP I Creatinine Equation (2020) Hematocrit Auto (Bld) [Volum e fraction]Ordered By: Kayla Diego on 10-15-2024 Hematocrit (Bld) [Volume fraction] 39.7 % 37-47 [facility] Hemoglobin measurementOrdere d By: Kayla Diego on 10-15-2024 Hemoglobin (Bld) [Mass/Vol] 12.8 g/dL 12.0-15.0 [facility] Immature granulocytes/100 WB C Auto (Bld)Ordered By: Kayla Diego on 10-15-2024 Immature granulocytes/100 WBC (Bld) 0.500 % 0.0-0.9 [facility] Comment on above: IG% - Immature Granu locytes (promyelocytes, myelocytes and metamyelocytes) > 1% indicates that a LEFT SHIFT is Present. Ketones Test strip Ql (U)Ord ered By: Kayla Diego on 10-15-2024 Ketones Ql (U) Negative Negative [facility] L503.7505on 10-15-2024 Natriuretic peptide B (Bld) [Mass/Vol] 103 pg/mL Normal <=450 [facility] Comment on above: Result Comment: Hear t Failure Unlikely: < 300 pg/mL Heart Failure Likely < 50 Years: > 450 pg/mL 50-75 Years: > 900 pg/mL >75 Years: > 1800 pg/mL Performed By: #### L 7400.0280, L3410.9992, L400.0001, L100.0100, M100.2200, L503.7505, L500.4050 ####[facility] [address] [place], [place], [id number] Laboratory - Chemistry and C hemistry - challengeOrdered By: Kayla Diego on 10-15-2024 AST [Catalytic activity/Vol] 25 U/L <32 [facility] Laboratory - CytologyOrdered By: Kayla Diego on 10-15-2024 Financial Aid Advisor Cyto stain Nom (Cvx/Vag) [ID] Comment . [facility] Comment on above: Andres Soares ologist (ASCP) Laboratory - Miscellaneous t estsOrdered By: Kayla Diego on 10-15-2024 Service comment (Unsp spec) [Interp] . . [facility] MCV (mean corpuscular volume ) determinationOrdered By: Kayla Diego on 10-15-2024 MCV (RBC) [Entitic vol] 90.2 fL 81-99 [facility] Mean corpuscular hemoglobin (MCH) determinationOrdered By: Kayla Diego on 10-15-2024 MCH (RBC) [Entitic mass] 29.1 pg 27.0-32.0 [facility] Mean corpuscular hemoglobin concentration (MCHC) determinationOrdered By: Kayla Diego on 10-15-2024 MCHC (RBC) [Mass/Vol] 32.2 g/dL 32-36 [facility] Mean platelet volume determi nationOrdered By: Kayla Diego on 10-15-2024 Platelet mean volume (Bld) [Entitic vol] 9.6 fL 6.2-12.0 [facility] Microscopic analysis of urin e for red blood cells (RBC)Ordered By: Kayla Diego on 10-15-2024 Microscopic analysis of urine for red blood cells (RBC) 0 SEEN /hpf 0-5 [facility] Monocyte percentageOrdered B y: Kayla Diego on 10-15-2024 Monocytes/100 WBC (Bld) 9.2 % 0-10 [facility] Mucus LM Ql (Urine sed)Order ed By: Kayla Diego on 10-15-2024 Mucus Ql (Urine sed) 0 SEEN /hpf [facility] Natriuretic peptide.B prohor vee N-Terminal [Mass/volume] in Serum or PlasmaOrdered By: Kayla Diego on 10-15-2024 Natriuretic peptide.B prohormone N-Terminal [Mass/Vol] 103 pg/mL <450 [facility] Comment on above: Heart Failure Unlike ly: < 300 pg/mLHeart Failure Likely< 50 Years: > 450 pg/mL50-75 Years: > 900 pg/mL>75 Years: > 1800 pg/mL Neutrophil percentageOrdered By: Kayla Diego on 10-15-2024 Neutrophils/100 WBC (Bld) 48.9 % 47-70 [facility] Nitrite Test strip Ql (U)Ord ered By: Kayla Diego on 10-15-2024 Nitrite Ql (U) Negative Negative [facility] No Panel InformationOrdered By: Kayla Diego on 10-15-2024 Pap Smear Specimen Adequacy Comment . [facility] Comment on above: Satisfactory for jeannie luation. Endocervical and/or squamous metaplasticcells (endocervical component) are present. Nucleated red blood cell per centageOrdered By: Kayla Diego on 10-15-2024 Nucleated RBC/100 WBC (Bld) [Ratio] 0 % 0-5 [facility] Platelet countOrdered By: Janie Diego on 10-15-2024 Platelets (Bld) [#/Vol] 253 10*3/uL 150-450 [facility] Potassium measurement (mass/ volume)Ordered By: Kayla Diego on 10-15-2024 Potassium (Unsp spec) [Mass/Vol] 4.2 mmol/L 3.3-5.1 [facility] Protein Test strip Ql (U)Ord ered By: Kayla Diego on 10-15-2024 Protein Ql (U) Negative Negative [facility] RBC Auto (Bld) [#/Vol]Ordere d By: Kayla Diego on 10-15-2024 RBC (Bld) [#/Vol] 4.40 10*6/uL 4.2-5.4 [facility] Serum creatinine measurement (mass/volume)Ordered By: Kayla Diego on 10-15-2024 Creatinine [Mass/Vol] 0.72 mg/dL 0.70-1.20 [facility] Serum globulin measurementOr dered By: Kayla Diego on 10-15-2024 Globulin (S) [Mass/Vol] 3.5 g/dL 2.2-4.2 [facility] Serum glucose measurement (m ass/volume)Ordered By: Kayla Diego on 10-15-2024 Glucose [Mass/Vol] 110 mg/dL High 70-99 [facility] Serum or plasma alanine valdivia otransferase (ALT) measurementOrdered By: Kayla Diego on 10-15-2024 ALT [Catalytic activity/Vol] 18 U/L <35 [facility] Serum or plasma albumin marilee urement (mass/volume)Ordered By: Kayla Diego on 10-15-2024 Albumin [Mass/Vol] 3.8 g/dL 3.5-5.0 [facility] Serum or plasma albumin/glob ulin mass ratioOrdered By: Kayladallas Diego on 10-15-2024 Albumin/Globulin [Mass ratio] 1.1 {ratio} 0.9-2.4 [facility] Serum or plasma alkaline emerson sphatase measurementOrdered By: Kayladallas Diego on 10-15-2024 ALP [Catalytic activity/Vol] 77 U/L 35-104 [facility] Serum or plasma calcium marilee urement (mass/volume)Ordered By: Kayla Diego on 10-15-2024 Calcium [Mass/Vol] 9.5 mg/dL 7.6-11.0 [facility] Serum or plasma urea nitroge n measurement (mass/volume)Ordered By: Kayla Diego on 10-15-2024 Urea nitrogen [Mass/Vol] 8 mg/dL 4-19 [facility] Sodium levelOrdered By: Amaris Diego on 10-15-2024 Sodium [Moles/Vol] 138 mmol/L 133-145 [facility] Squamous epithelial cells de tection in urine sediment by light microscopyOrdered By: Kayla Diego on 10-15-2024 Epithelial cells.squamous LM Ql (Urine sed) 0-5 SEEN /hpf 5-10 [facility] Total proteinOrdered By: Rey Diego on 10-15-2024 Protein [Mass/Vol] 7.3 g/dL 5.9-8.4 [facility] Urinalysis, Completeon 10-15 EPI,SQUAMOUS 0-5 SEEN Normal 5-10 [facility] Comment on above: Order Comment: CLEAN CATCH Performed By: #### L 7400.0280, L3410.9992, L400.0001, L100.0100, M100.2200, L503.7505, L500.4050 ####[facility] [address] [place], [address] WBC 0-5 SEEN Normal 0-5 [facility] Comment on above: Order Comment: CLEAN CATCH Performed By: #### L 7400.0280, L3410.9992, L400.0001, L100.0100, M100.2200, L503.7505, L500.4050 ####[facility] [address] [place], [address] BACTERIA 0 SEEN Normal None Seen [facility] Comment on above: Order Comment: CLEAN CATCH Performed By: #### L 7400.0280, L3410.9992, L400.0001, L100.0100, M100.2200, L503.7505, L500.4050 ####[facility] [address] [place], [address] Mucus Ql (Urine sed) 0 SEEN Normal [facility] Comment on above: Order Comment: CLEAN CATCH Performed By: #### L 7400.0280, L3410.9992, L400.0001, L100.0100, M100.2200, L503.7505, L500.4050 ####[facility] [address] [place], [address] RBC 0 SEEN Normal 0-5 [facility] Comment on above: Order Comment: CLEAN CATCH Performed By: #### L 7400.0280, L3410.9992, L400.0001, L100.0100, M100.2200, L503.7505, L500.4050 ####[facility] [address] [place], [address] Urine clarityOrdered By: Rey Diego on 10-15-2024 Clarity (U) Clear Clear [facility] Urine color determinationOrd ered By: Kayla Diego on 10-15-2024 Color (U) Yellow Yellow [facility] Urine cultureOrdered By: Rey Diego on 10-15-2024 Bacteria identified Cx Nom (U) Positive Abnormal [facility] Urine glucose detectionOrder ed By: Kayla Diego on 10-15-2024 Glucose Ql (U) Normal mg/dl Normal [facility] Urine leukocyte esterase det ection by dipstickOrdered By: Kayla Diego on 10-15-2024 Leukocyte esterase Test strip Ql (U) Negative Negative [facility] Urine pHOrdered By: Kayla gonzales on 10-15-2024 pH (U) 7.0 [pH] 5.0 - 8.0 [facility] Urine sediment bacteria coun t by microscopy (number/high power field)Ordered By: Kayla Diego on 10-15-2024 Bacteria LM.HPF (Urine sed) [#/Area] 0 /[HPF] None Seen [facility] Urine specific gravity measu rementOrdered By: Kayla Diego on 10-15-2024 Specific gravity (U) [Rel density] 1.010 1.002-1.030 [facility] Urine urobilinogen measureme ntOrdered By: Kayla Diego on 10-15-2024 Urobilinogen Ql (U) 1 mg/dl High Normal [facility] White blood cell (WBC) count Ordered By: Kayla Diego on 10-15-2024 WBC (Bld) [#/Vol] 4.4 10*3/uL 4.4-11.0 [facility] White blood cell countOrdere d By: Kayla Diego on 10-15-2024 White blood cell count 0-5 SEEN /hpf 0-5 [facility] Hepatitis Panel Acuteon 09-29 HCV Interpretat Comment Normal . [facility] Comment on above: Result Comment: Posi tive HCV antibody screen without the presence of HCV RNA is consistent with a resolved past infection or a false positive HCV antibody. Consider repeat testing after one month. Performed at: [facility] [address] [id number] Enrollment Processor: Александр Florian PhD, Phone: [phone] Performed at: [facility] [address] [id number] Enrollment Processor: Radha Roche MD, Phone: [phone] Performed By: #### L 243.2974, F227.8478, L501.9985, L3000.0375, L3890.6006, L500.4050 #### [facility] [address] [place], [address] HCV log 10 TNP Normal . [facility] Comment on above: Performed By: #### L 509.8002, L500.4100, L501.9985, L3000.0375, L3890.6006, L500.4050 #### [facility] [address] [place], [address] HEP B CORE,IgM Negative Normal Negative [facility] Comment on above: Performed By: #### L 509.8002, L500.4100, L501.9985, L3000.0375, L3890.6006, L500.4050 #### [facility] [address] [place], [address] HEP B SURF AG Negative Normal Negative [facility] Comment on above: Performed By: #### L 509.8002, L500.4100, L501.9985, L3000.0375, L3890.6006, L500.4050 #### [facility] [address] [place], [address] Hep C Quant Not detected Normal . [facility] [facility] Comment on above: Performed By: #### L 509.8002, L500.4100, L501.9985, L3000.0375, L3890.6006, L500.4050 #### [facility] [address] [place], [address] HEP C VIRUS AB Reactive Abnormal Non Reactive [facility] Comment on above: Result Comment: Carlito nt Requested Flag Performed By: #### L 509.8002, L500.4100, L501.9985, L3000.0375, L3890.6006, L500.4050 #### [facility] [address] [place], [address] HEPATITIS A-IgM Negative Normal Negative [facility] Comment on above: Result Comment: A ne gative anti-HAV IgM result suggests no recent or current HAV infection. Performed By: #### L 509.8002, L500.4100, L501.9985, L3000.0375, L3890.6006, L500.4050 #### [facility] [address] [place], [place], [address] Test Informatio Comment Normal . [facility] Comment on above: Result Comment: The quantitative range of this assay is 15 IU/mL to 100 million IU/mL. Performed By: #### L 509.8002, L500.4100, L501.9985, L3000.0375, L3890.6006, L500.4050 #### [facility] [address] [place], [address] Anion gap in Serum or Plasma Ordered By: Kayla Diego on 10-06-2024 Anion gap [Moles/Vol] 14 mmol/L 5-15 [facility] BUN/creatinine ratioOrdered By: Kayla Diego on 10-06-2024 Urea nitrogen/Creatinine [Mass ratio] 17.2 mg/mg 10-20 [facility] Bilirubin, totalOrdered By: Kayla Diego on 10-06-2024 Bilirubin [Mass/Vol] 0.45 mg/dL 0.00-1.30 [facility] Calculated very low density lipoprotein (VLDL) cholesterol measurementOrdered By: Kayla Diego on 10-06-2024 Calculated very low density lipoprotein (VLDL) cholesterol measurement 28 mg/dL 5-40 [facility] Carbon dioxide, total [Moles /volume] in Central venous bloodOrdered By: Kayla Diego on 10-06-2024 CO2 [Moles/Vol] 22.2 mmol/L 21.0-32.0 [facility] Chloride assayOrdered By: Janie Diego on 10-06-2024 Chloride [Moles/Vol] 103 mmol/L 98-108 [facility] Comprehensive Metabolic Prof ilon 10-06-2024 Albumin [Mass/Vol] 4.0 g/dL Normal 3.5-5.0 [facility] Comment on above: Performed By: #### L 509.8002, L500.4100, L501.9985, L3000.0375, L3890.6006, L500.4050 #### [facility] [address] [place], [address] Albumin/Globulin [Mass ratio] 1.0 {ratio} Normal 0.9-2.4 [facility] Comment on above: Performed By: #### L 509.8002, L500.4100, L501.9985, L3000.0375, L3890.6006, L500.4050 #### [facility] [address] [place], [address] ALK PHOS 83 U/L Normal 35-104 [facility] Comment on above: Performed By: #### L 509.8002, L500.4100, L501.9985, L3000.0375, L3890.6006, L500.4050 #### [facility] [address] [place], [address] ALT [Catalytic activity/Vol] 24 U/L Normal <=34 [facility] Comment on above: Performed By: #### L 509.8002, L500.4100, L501.9985, L3000.0375, L3890.6006, L500.4050 #### [facility] [address] [place], [address] AST [Catalytic activity/Vol] 26 U/L Normal <=31 [facility] Comment on above: Performed By: #### L 509.8002, L500.4100, L501.9985, L3000.0375, L3890.6006, L500.4050 #### [facility] [address] [place], [address] Bilirubin [Mass/Vol] 0.45 mg/dL Normal 0.00-1.30 [facility] Comment on above: Performed By: #### L 509.8002, L500.4100, L501.9985, L3000.0375, L3890.6006, L500.4050 #### [facility] [address] [place], [address] BUN/CRE 17.2 RATIO Normal 10-20 [facility] Comment on above: Performed By: #### L 509.8002, L500.4100, L501.9985, L3000.0375, L3890.6006, L500.4050 #### [facility] [address] [place], [address] Calcium [Mass/Vol] 9.2 mg/dL Normal 7.6-11.0 [facility] Comment on above: Performed By: #### L 509.8002, L500.4100, L501.9985, L3000.0375, L3890.6006, L500.4050 #### [facility] [address] [place], [address] Chloride [Moles/Vol] 103 mmol/L Normal 98-108 [facility] Comment on above: Performed By: #### L 509.8002, L500.4100, L501.9985, L3000.0375, L3890.6006, L500.4050 #### [facility] [address] [place], [address] CO2 [Moles/Vol] 22.2 mmol/L Normal 21.0-32.0 [facility] Comment on above: Performed By: #### L 509.8002, L500.4100, L501.9985, L3000.0375, L3890.6006, L500.4050 #### [facility] [address] [place], [address] Creatinine [Mass/Vol] 0.88 mg/dL Normal 0.70-1.20 [facility] Comment on above: Performed By: #### L 509.8002, L500.4100, L501.9985, L3000.0375, L3890.6006, L500.4050 #### [facility] [address] [place], [address] GAP 14 Normal 5-15 [facility] Comment on above: Performed By: #### L 509.8002, L500.4100, L501.9985, L3000.0375, L3890.6006, L500.4050 #### [facility] [address] [place], [address] GFR/1.73 sq M.predicted among non-blacks MDRD (S/P/Bld) [Vol rate/Area] 81 mL/min/{1.73_m2} Normal >60 [facility] Comment on above: Result Comment: mL/m in/1.73m2 CKD-EPI Creatinine Equation (2020) Performed By: #### L 509.8002, L500.4100, L501.9985, L3000.0375, L3890.6006, L500.4050 #### [facility] [address] [place], [address] Globulin (S) [Mass/Vol] 3.8 g/dL Normal 2.2-4.2 [facility] Comment on above: Performed By: #### L 509.8002, L500.4100, L501.9985, L3000.0375, L3890.6006, L500.4050 #### [facility] [address] [place], [address] Glucose [Mass/Vol] 96 mg/dL Normal 70-99 [facility] Comment on above: Performed By: #### L 509.8002, L500.4100, L501.9985, L3000.0375, L3890.6006, L500.4050 #### [facility] [address] [place], [address] Potassium [Moles/Vol] 4.3 mmol/L Normal 3.3-5.1 [facility] Comment on above: Performed By: #### L 509.8002, L500.4100, L501.9985, L3000.0375, L3890.6006, L500.4050 #### [facility] [address] [place], [address] Sodium [Moles/Vol] 140 mmol/L Normal 133-145 [facility] Comment on above: Performed By: #### L 509.8002, L500.4100, L501.9985, L3000.0375, L3890.6006, L500.4050 #### [facility] [address] [place], [address] T PROT 7.7 g/dL Normal 5.9-8.4 [facility] Comment on above: Performed By: #### L 509.8002, L500.4100, L501.9985, L3000.0375, L3890.6006, L500.4050 #### [facility] [address] [place], [address] Urea nitrogen [Mass/Vol] 15 mg/dL Normal 4-19 [facility] Comment on above: Performed By: #### L 509.8002, L500.4100, L501.9985, L3000.0375, L3890.6006, L500.4050 #### [facility] [address] [place], [address] Gastroenterology Visit Repor ton 10-06-2024 Gastroenterology Visit Report [facility] [address] [place] [address] OFFICE VISIT Date of Service: 10/06/24 MR#: [id number] Acct: [id number] Name: LINDA LYNN Rep #: [id number] : 1975 Provider: LOLA plata Age/Sex: 48/F Location: [facility] Status: Signed Intake Vital Signs 10/06/24 09:46 Height 5 ft 7 in Weight: 269 lb 6 oz BMI 42.2 BP 128/69 H Respiration 18 Pulse 79 Temp 97.5 F L Pulse Oximetry (%) 97 Oxygen Delivery Method room air Intake Visit Reasons: CONSTIPATION Chief Complaint: constipation Linen Keeper Required: No Accompanied by: Self Is patient in pain?: Yes Allergies erythromycin base (From E-Mycin) Allergy (Mild, Verified 10/06/24 09:44) chest pain and swelling hydroxyzine Allergy (Mild, Verified 10/06/24 09:44) elevates heart rate Medications ???Medication ???Instructions ???Recorded ???Confirmed ???Type all indigoer fizzy melts PO PRN 10/06/24 History hydrocortisone 2.5 % topical cream 1 applic NE QD-BID PRN rectal pa in 10/06/24 10/06/24 [...] HPI HPI Chief Complaint: constipation Details: LINDA LYNN, is a 48 F who presents to [...] month ago - just moved here from [facility] - Marijuana use intermittent - reports [...] ectasia lik (more content not included)... Normal [facility] Glomerular filtration rate ( GFR) estimation/1.73 sq m using serum, plasma, or whole bOrdered By: Kayla Diego on 10-06-2024 GFR/1.73 sq M.predicted among non-blacks MDRD (S/P/Bld) [Vol rate/Area] 81 mL/min/{1.73_m2} >60 [facility] Comment on above: mL/min/1.73m2 CKD-EP I Creatinine Equation (2020) HIVon 10-06-2024 HIV Non-Reactive Normal Nonreactive [facility] Comment on above: Result Comment: Non- Reactive Reactive Repeatedly reactive samples must be confirmed according to CDC recommended confirmatory algorithms. The subresults for either HIVAG or AHIV can be used as an aid in the selection of the confirmation algorithm for reactive samples. Send out specimens with Reactive results to [facility] for confirmation. Order the HIV antibody detection and differentiation: #[id number] Performed By: #### L 509.8002, L500.4100, L501.9985, L3000.0375, L3890.6006, L500.4050 #### [facility] [address] [place], [place], [id number] Hemoglobin A1con 10-06-2024 HbA1c (Bld) [Mass fraction] 5.7 % Normal <=5.6 [facility] Comment on above: Result Comment: Norm al < 5.7 % Prediabetic 5.7 - 6.4 % Diabetic >or= 6.5 % Please note range changes. Performed By: #### L 509.8002, L500.4100, L501.9985, L3000.0375, L3890.6006, L500.4050 #### [facility] [address] [place], [place], [address] Hemoglobin A1c percentageOrd ered By: Kayla Diego on 10-06-2024 HbA1c (Bld) [Mass fraction] 5.7 % <5.7 [facility] Comment on above: Normal < 5.7 % Predi abetic 5.7 - 6.4 % Diabetic >or= 6.5 % Please note range changes. LDL calc ser/plasOrdered By: Kayla Diego on 10-06-2024 Cholesterol in LDL [Mass/Vol] 130 mg/dL [facility] Comment on above: Jkieplvbgh=094-014 m g/dL & Higher Otcn=880 mg/dL or greater Laboratory - Chemistry and C hemistry - challengeOrdered By: Kayla Diego on 10-06-2024 AST [Catalytic activity/Vol] 26 U/L <32 [facility] Lipid Profileon 10-06-2024 CHOL:HDL 3.79 Normal [facility] Comment on above: Performed By: #### L 509.8002, L500.4100, L501.9985, L3000.0375, L3890.6006, L500.4050 #### [facility] [address] [place], [address] (021) Cholesterol [Mass/Vol] 215 mg/dL High <=200 [facility] Comment on above: Result Comment: Chol esterol level, Desirable <200 mg/dL Borderline high cholesterol 200-239 mg/dL High cholesterol >=240 mg/dL Recommendations of the NCEP Adult Treatment Panel for the following risk-cutoff thresholds for the [place] population. Performed By: #### L 509.8002, L500.4100, L501.9985, L3000.0375, L3890.6006, L500.4050 #### [facility] [address] [place], [address] Cholesterol in HDL [Mass/Vol] 57 mg/dL Normal [facility] Comment on above: Result Comment: Margaret onal Cholesterol Education Program (NCEP) guidelines: <40 mg/dL: Low HDL-cholesterol (major risk factor for CHD) >= 60 mg/dL: High HDL-cholesterol (negative risk factor for CHD) HDL-cholesterol is affected by a number of factors, e.g. smoking, exercise, hormones, sex and age. Performed By: #### L 509.8002, L500.4100, L501.9985, L3000.0375, L3890.6006, L500.4050 #### [facility] [address] [place], [address] Cholesterol in LDL [Mass/Vol] 130 mg/dL Normal [facility] Comment on above: Result Comment: Bord xbsaat=702-540 mg/dL Higher Wmhl=770 mg/dL or greater Performed By: #### L 509.8002, L500.4100, L501.9985, L3000.0375, L3890.6006, L500.4050 #### [facility] [address] [place], [address] Cholesterol in VLDL [Mass/Vol] 28 mg/dL Normal 5-40 [facility] Comment on above: Performed By: #### L 509.8002, L500.4100, L501.9985, L3000.0375, L3890.6006, L500.4050 #### [facility] [address] [place], [address] Triglyceride [Mass/Vol] 142 mg/dL Normal [facility] Comment on above: Result Comment: The drugs N-Acetylcysteine and Metamizole may falsely depress this assay. Normal range: <150 mg/dL Borderline High: 150-199 mg/dL High: 200-499 mg/dL Very High: >500 mg/dL Performed By: #### L 509.8002, L500.4100, L501.9985, L3000.0375, L3890.6006, L500.4050 #### [facility] [address] [place], [address] No Panel InformationOrdered By: Kayla Diego on 10-06-2024 HCV log10 Confirmation TNP [facility] Comment on above: Test not performed Hepatitis C RNA Qnt (PCR) Test Info Comment . [facility] Comment on above: The quantitative ran ge of this assay is 15 IU/mL to 100million IU/mL. Hepatitis C Virus Note Comment . [facility] Comment on above: Positive HCV antibod y screen without the presence of HCVRNA is consistent with a resolved past infection or a falsepositive HCV antibody. Consider repeat testing after onemonth.Performed at: [address] [id number] Director: Александр Florian PhD, Phone: [phone] at: [address] [id number] Director: Radha Roche MD, Phone: [phone] HIV (1&2) Antibody Non-Reactive Nonreactive [facility] Comment on above: Non-ReactiveReactive Repeatedly reactive samples must be confirmed according to CDC recommended confirmatory algorithms. The subresults for either HIVAG or AHIV can be used as an aid in the selection of the confirmation algorithm for reactive samples.Send out specimens with Reactive results to [facility] for confirmation.Order the HIV antibody detection and differentiation: #[id number] Potassium measurement (mass/ volume)Ordered By: Kayla Diego on 10-06-2024 Potassium (Unsp spec) [Mass/Vol] 4.3 mmol/L 3.3-5.1 [facility] Screening total cholesterol/ high density lipoprotein (HDL) cholesterol ratioOrdered By: Kayla Diego on 10-06-2024 Cholesterol.total/Cho lesterol in HDL [Mass ratio] 3.79 {ratio} [facility] Serum creatinine measurement (mass/volume)Ordered By: Kayla Diego on 10-06-2024 Creatinine [Mass/Vol] 0.88 mg/dL 0.70-1.20 [facility] Serum globulin measurementOr dered By: Kayla Diego on 10-06-2024 Globulin (S) [Mass/Vol] 3.8 g/dL 2.2-4.2 [facility] Serum glucose measurement (m ass/volume)Ordered By: Kayla Diego on 10-06-2024 Glucose [Mass/Vol] 96 mg/dL 70-99 [facility] Serum or plasma alanine valdivia otransferase (ALT) measurementOrdered By: Kayla Diego on 10-06-2024 ALT [Catalytic activity/Vol] 24 U/L <35 [facility] Serum or plasma albumin marilee urement (mass/volume)Ordered By: Kayladallas Diego on 10-06-2024 Albumin [Mass/Vol] 4.0 g/dL 3.5-5.0 [facility] Serum or plasma albumin/glob ulin mass ratioOrdered By: Westford Doe on 10-06-2024 Albumin/Globulin [Mass ratio] 1.0 {ratio} 0.9-2.4 [facility] Serum or plasma alkaline emerson sphatase measurementOrdered By: Westford Johnathon on 10-06-2024 ALP [Catalytic activity/Vol] 83 U/L 35-104 [facility] Serum or plasma calcium marilee urement (mass/volume)Ordered By: Kayla Diego 10-06-2024 Calcium [Mass/Vol] 9.2 mg/dL 7.6-11.0 [facility] Serum or plasma cholesterol in HDL measurement (mass/volume)Ordered By: Kayla Doe on 10-06-2024 Cholesterol in HDL [Mass/Vol] 57 mg/dL >40 [facility] Comment on above: National Cholesterol Education Program (NCEP) guidelines:<40 mg/dL: Low HDL-cholesterol (major risk factor for CHD)>= 60 mg/dL: High HDL-cholesterol (negative risk factor for CHD)HDL-cholesterol is affected by a number of factors, e.g. smoking, exercise, hormones, sex and age. Serum or plasma cholesterol measurement (mass/volume)Ordered By: Kayla Diego on 10-06-2024 Cholesterol [Mass/Vol] 215 mg/dL High <201 [facility] Comment on above: Cholesterol level, D esirable <200 mg/dLBorderline high cholesterol 200-239 mg/dLHigh cholesterol >=240 mg/dLRecommendations of the NCEP Adult Treatment Panel for the following risk-cutoff thresholds for the [place] population. Serum or plasma hepatitis B virus surface antigen detection by immunoassayOrdered By: Kayla Diego on 10-06-2024 HBV surface Ag IA Ql Negative Negative [facility] Serum or plasma urea nitroge n measurement (mass/volume)Ordered By: Kayla Diego on 10-06-2024 Urea nitrogen [Mass/Vol] 15 mg/dL 4-19 [facility] Sodium levelOrdered By: Amaris Diego on 10-06-2024 Sodium [Moles/Vol] 140 mmol/L 133-145 [facility] Syphilis Antibodieson 2024 Syphilis Abs Non-Reactive Normal Nonreactive [facility] Comment on above: Performed By: #### L 509.8002, L500.4100, L501.9985, L3000.0375, L3890.6006, L500.4050 #### [facility] [address] [place], [address] Total proteinOrdered By: Rey Diego on 10-06-2024 Protein [Mass/Vol] 7.7 g/dL 5.9-8.4 [facility] Triglycerides measurementOrd ered By: Kayla Diego on 10-06-2024 Triglyceride [Mass/Vol] 142 mg/dL <199 [facility] Comment on above: The drugs N-Acetylcy steine and Metamizole may falsely depress this assay. Normal range: <150 mg/dLBorderline High: 150-199 mg/dLHigh: 200-499 mg/dLVery High: >500 mg/dL CULT URINEon 09-27-2023 CULT URINE SPECIMEN DESCRIPTION Urine, Clean Catch SPECIMEN TYPE Urine Tested at [facility] [address] [facility] [address] CULTURE RESULTS Multiple bacterial species isolated from urine consistent with urogenital commensal organisms. REPORT STATUS 09/27/[address] [facility] Comment on above: Performed By: #### U RNC #### Eva Fernández ([id number]) [facility] [address] [place] [address] TROPONIN I HIGH SENSITIVEon 09-26-2023 TROPONIN I HIGH SENSITIVE <3 Normal <15 [facility] Comment on above: Result Comment: Inte rpretive Guidelines: LOW RISK: <3 ng/L or Delta <4 and below 15 ng/L LOW INTERMEDIATE RISK: <15 ng/L HIGH INTERMEDIATE RISK: >/=15 ng/L HIGH RISK: >/=88 ng/L or Delta >/=22 Tested at [facility] [address] [facility] [address] Performed By: #### H JANISI #### Eva Fernández ([id number]) [facility] [address] [place] [address] BASIC METABOLIC PNLon 2023 Anion gap [Moles/Vol] 9 mmol/L Normal 4-16 [facility] Comment on above: Performed By: #### B AMP #### Eva Frenández ([id number]) [facility] [address] [place] [address] Calcium [Mass/Vol] 9.0 mg/dL Normal 8.5-10.4 [facility] Comment on above: Performed By: #### B AMP #### Eva Fernández ([id number]) [facility] [address] [place] [address] Chloride [Moles/Vol] 104 mmol/L Normal 98-111 [facility] Comment on above: Performed By: #### B AMP #### Eva Fernández ([id number]) [facility] [address] [place] [address] CO2 [Moles/Vol] 26 mmol/L Normal 21-31 [facility] Comment on above: Performed By: #### B AMP #### Eva Fernández ([id number]) [facility] [address] [place] [address] Creatinine [Mass/Vol] 0.74 mg/dL Normal 0.60-1.20 [facility] Comment on above: Performed By: #### B AMP #### Eva Fernández ([id number]) [facility] [address] [place] [address] ESTIMATED GFR 100 mL/min/1.73 m2 Normal >59 [facility] Comment on above: Result Comment: Alis mated GFR was calculated using the CKD-EPI cr (2020) equation refit without race. The equation is recommended by the National Kidney Foundation - [place] Society of Nephrology Task Force. Tested at [facility] [address] [facility] [address] Performed By: #### B AMP #### Eva Fernández ([id number]) [facility] [address] [place] [address] Glucose [Mass/Vol] 97 mg/dL Normal 70-99 [facility] Comment on above: Performed By: #### B AMP #### Eva Fernández ([id number]) [facility] [address] [place] [address] Potassium [Moles/Vol] 3.7 mmol/L Normal 3.6-5.1 [facility] Comment on above: Performed By: #### B AMP #### Eva Fernández ([id number]) [facility] [address] [place] [address] Sodium [Moles/Vol] 139 mmol/L Normal 135-145 [facility] Comment on above: Performed By: #### B AMP #### Eva Fernández ([id number]) [facility] [address] [place] [address] Urea nitrogen [Mass/Vol] 13 mg/dL Normal 8-26 [facility] Comment on above: Performed By: #### B AMP #### Eva Fernández ([id number]) [facility] [address] [place] [address] CBC W/ DIFFon 09-24-2023 ABS BASOS 0.00 THOU/mcL Normal 0.00-0.20 [facility] Comment on above: Performed By: #### C BCD #### Eva Fernández ([id number]) [facility] [address] [place] [address] ABS EOS 0.10 THOU/mcL Normal 0.03-0.45 [facility] Comment on above: Performed By: #### C BCD #### Eva Fernández ([id number]) [facility] [address] [place] [address] ABS LYMPHS 2.10 THOU/mcL Normal 1.00-4.00 [facility] Comment on above: Performed By: #### C BCD #### Eva Fernández ([id number]) [facility] [address] [place] [address] ABS MONOS 0.50 THOU/mcL Normal 0.20-0.90 [facility] Comment on above: Performed By: #### C BCD #### Eva Fernández ([id number]) [facility] [address] [place] [address] ABS NEUTROPHIL 2.90 THOU/mcL Normal 1.80-7.70 [facility] Comment on above: Performed By: #### C BCD #### Eva Fernández ([id number]) [facility] [address] [place] [address] Basophils/100 WBC (Bld) 1 % Normal [facility] Comment on above: Result Comment: Test ed at [facility] [address] [facility] [address] Performed By: #### C BCD #### Eva Fernández ([id number]) [facility] [address] [place] [address] Eosinophils/100 WBC (Bld) 1 % Normal [facility] Comment on above: Performed By: #### C BCD #### Eva Fernández ([id number]) [facility] [address] [place] [address] Erythrocyte distribution width (RBC) [Ratio] 13.5 % Normal 12.3-17.0 [facility] Comment on above: Performed By: #### C BCD #### Eva Fernández ([id number]) [facility] [address] [place] [address] Hematocrit (Bld) [Volume fraction] 39.1 % Normal 36-46 [facility] Comment on above: Performed By: #### C BCD #### Eva Fernández ([id number]) [facility] [address] [place] [address] Hemoglobin (Bld) [Mass/Vol] 13.1 g/dL Normal 12.0-15.2 [facility] Comment on above: Performed By: #### C BCD #### Eva Fernández ([id number]) [facility] [address] [place] [address] Lymphocytes/100 WBC (Bld) 38 % Normal [facility] Comment on above: Performed By: #### C BCD #### Eva Fernández ([id number]) [facility] [address] [place] [address] MCH (RBC) [Entitic mass] 29.5 pg Normal 27-33 [facility] Comment on above: Performed By: #### C BCD #### Eva Fernández ([id number]) [facility] [address] [place] [address] MCHC (RBC) [Mass/Vol] 33.4 g/dL Normal 32-36 [facility] Comment on above: Performed By: #### C BCD #### Eva Fernández ([id number]) [facility] [address] [place] [address] MCV (RBC) [Entitic vol] 88.1 fL Normal 82-97 [facility] Comment on above: Performed By: #### C BCD #### Eva Fernández ([id number]) [facility] [address] [place] [address] Monocytes/100 WBC (Bld) 9 % Normal [facility] Comment on above: Performed By: #### C BCD #### Eva Fernández ([id number]) [facility] [address] [place] [address] PLATELET 215 THOU/mcL Normal 140-375 [facility] Comment on above: Performed By: #### C BCD #### Eva Fernández ([id number]) [facility] [address] [place] [address] Platelet mean volume (Bld) [Entitic vol] 8.0 fL Normal 7.4-11.5 [facility] Comment on above: Performed By: #### C BCD #### Eva Fernández ([id number]) [facility] [address] [place] [address] RBC 4.44 MIL/mcL Normal 3.80-5.20 [facility] Comment on above: Performed By: #### C BCD #### Eva Fernández ([id number]) [facility] [address] [place] [address] SEGS 51 % Normal [facility] Comment on above: Performed By: #### C BCD #### Eva Fernández ([id number]) [facility] [address] [place] [address] WBC 5.6 THOU/mcL Normal 3.6-10.5 [facility] Comment on above: Performed By: #### C BCD #### Eva Fernández ([id number]) [facility] [address] [place] [address] CT ABDOMEN PELVIS WO CONTRAS Ton 09-25-2023 CT ABDOMEN PELVIS WO CONTRAST CT ABDOMEN PELVIS WO CONTRAST HISTORY: Flank pain, kidney stone suspected left flank pain, vomiting , chest pain COMPARISON: Abdomen/pelvis CT 12-19 TECHNIQUE: Noncontrast multiplanar CT images of the abdomen and pelvis NOTE: If there are questions about the content of this report, please contact [facility] radiology by calling [phone] FINDINGS: LOWER CHEST: Unremarkable LIVER: Unremarkable GALLBLADDER/BILE [...] MD on 09/26/2023 12:21 AM 170.2 124.739 [facility] Imaging Report - Main Call Center - [facility] Call Center: Normal [facility] ED PROV NOTEon 09-25-2023 ED PROV NOTE Pool Manager Authentication Interface Message Text [facility] EMERGENCY DEPARTMENT ED Encounter Arrival Date: 09/25/23 214 Linda Lynn : 1975 [address] [place] [address] [facility]: [id number] [facility]: [phone] EMERGENCY DEPARTMENT ENCOUNTER History: Chief Complaint Patient presents with Flank Pain Pt states she has been having flank pain on both sides for the last week with the left side hurting worse than the right, pt states the pain is rated a 7 out of 10, pt states she has been having burning and pain with urination HPI Linda Lynn is a 47 year old female with [...] Recent Results (from the past 24 hour(s)) [facility] (Na,K,Cl,CO2,Glu,BUN,Cre at,Ca) Collection Time: 09/25/23 10:29 PM [...] g/dL RDW (more content not included)... Normal [facility] HCG,POC URINEon 09-25-2023 Beta HCG ( test) Ql (U) Negative Normal NEGATIVE [facility] Comment on above: Performed By: #### P HCG #### Eva Fernández ([id number]) [facility] [address] [place] [address] HEPATIC FUNC PANELon 024 Albumin [Mass/Vol] 3.7 g/dL Normal 3.5-5.7 [facility] Comment on above: Performed By: #### L IVER #### Eva Fernández ([id number]) [facility] [address] [place] [address] ALP [Catalytic activity/Vol] 65 U/L Normal 35-135 [facility] Comment on above: Performed By: #### L IVER #### Eva Fernández ([id number]) [facility] [address] [place] [address] ALT [Catalytic activity/Vol] 10 U/L Normal 10-60 [facility] Comment on above: Performed By: #### L IVER #### Eva Fernández ([id number]) [facility] [address] [place] [address] AST [Catalytic activity/Vol] 13 U/L Normal 10-40 [facility] Comment on above: Performed By: #### L IVER #### Eva Fernández ([id number]) [facility] [address] [place] [address] Bilirubin [Mass/Vol] 0.3 mg/dL Normal 0.0-1.2 [facility] Comment on above: Performed By: #### L IVER #### Eva Fernández ([id number]) [facility] [address] [place] [address] Bilirubin.direct [Mass/Vol] 0.1 mg/dL Normal 0.0-0.2 [facility] Comment on above: Result Comment: Test ed at [facility] [address] [place] [address] Performed By: #### L IVER #### Eva Fernández ([id number]) [facility] [address] [place] [address] Protein [Mass/Vol] 7.0 g/dL Normal 6.0-8.0 [facility] Comment on above: Performed By: #### L IVER #### Eva Fernández ([id number]) [facility] [address] [place] [address] LIPASEon 09-25-2023 Lipase [Catalytic activity/Vol] 51 U/L Normal 11-82 [facility] Comment on above: Result Comment: Test ed at [facility] [address] [place] [address] Performed By: #### L IPA #### Eva Fernández ([id number]) [facility] [address] [place] [address] UAS REFLEXon 09-25-2023 Appearance (U) Clear Normal Clear [facility] Comment on above: Performed By: #### U ASR #### Eva Fernández ([id number]) [address] [address] BACTERIA SEE NOTES Abnormal NONE [facility] Comment on above: Result Comment: FEW Performed By: #### U ASR #### Eva Fernández ([id number]) [address] [address] BILIRUBIN,URINE Negative Normal NEGATIVE [facility] Comment on above: Performed By: #### U ASR #### Eva Fernández ([id number]) [address] [address] BLOOD, URINE Negative Normal NEGATIVE [facility] Comment on above: Performed By: #### U ASR #### Eva Fernández ([id number]) [address] [address] Color (U) Yellow Normal Yellow [facility] Comment on above: Result Comment: Ligh t Yellow Performed By: #### U ASR #### Eva Fernández ([id number]) [facility] [address] [place] [address] Glucose Ql (U) Negative Normal NEGATIVE [facility] Comment on above: Performed By: #### U ASR #### Eva Fernández ([id number]) [facility] [address] [place] [address] Ketones Ql (U) Negative Normal NEGATIVE [facility] Comment on above: Performed By: #### U ASR #### Eva Fernández ([id number]) [facility] [address] [place] [address] Leukocyte esterase Test strip Ql (U) 4+ (500 Ena/uL) Abnormal NEGATIVE [facility] Comment on above: Performed By: #### U ASR #### Eva Fernández ([id number]) [facility] [address] [place] [address] Mucus Ql (Urine sed) PRESENT Normal [facility] Comment on above: Result Comment: Test ed at [facility] [address] [facility] [address] Performed By: #### U ASR #### Eva Fernández ([id number]) [facility] [address] [place] [address] Nitrite Ql (U) Negative Normal [facility] Comment on above: Performed By: #### U ASR #### Eva Fernández ([id number]) [facility] [address] [place] [address] pH (U) 6.0 [pH] Normal 5.0-8.0 [facility] Comment on above: Performed By: #### U ASR #### Eva Fernández ([id number]) [facility] [address] [place] [address] PROTEIN URIN Trace (10-20 mg/dL) Abnormal NEGATIVE [facility] Comment on above: Performed By: #### U ASR #### Eva Fernández ([id number]) [facility] [address] [place] [address] RBC (U) [#/Vol] /uL Normal <6 [facility] Comment on above: Result Comment: 3 to 5 Performed By: #### U ASR #### Eva Fernández ([id number]) [place] [address] SPEC.GRAVITY,URINE 1.021 Normal 1.005-1.029 [facility] Comment on above: Performed By: #### U ASR #### Eva Fernández ([id number]) [place] [address] SQUAMOUS EPI CELLS 6 to 10 Normal [facility] Comment on above: Performed By: #### U ASR #### Eva Fernández ([id number]) [place] [address] UROBILINOGEN 1+ (2-3 mg/dL) Abnormal NORMAL [facility] Comment on above: Performed By: #### U ASR #### Eva Fernández ([id number]) [place] [address] WBC 11 to 20 Abnormal <6 [facility] Comment on above: Performed By: #### U ASR #### Eva Fernández ([id number]) [place] [address] SPECIMEN SOURCE Urine, Clean Catch Normal [facility] Comment on above: Performed By: #### U ASR #### Eva Fernández ([id number]) [place] [address] URINE TYPE Urine Normal [facility] Comment on above: Performed By: #### U ASR #### Eva Fernández ([id number]) [place] [address] CBC W Auto Differential pane l (Bld)on 10-09-2022 Basophils (Bld) [#/Vol] 0.1 10*3/uL 0.0 - 0.2 K/uL [facility] Basophils/100 WBC (Bld) 0.8 % [facility] Eosinophils (Bld) [#/Vol] 0.0 10*3/uL 0.0 - 0.6 K/uL [facility] Eosinophils/100 WBC (Bld) 0.3 % [facility] Erythrocyte distribution width (RBC) [Entitic vol] 13.7 % 12.4 - 15.4 % [facility] Hematocrit (Bld) [Volume fraction] 41.1 % 36.0 - 48.0 % [facility] Hemoglobin (Bld) [Mass/Vol] 13.6 g/dL 12.0 - 16.0 g/dL [facility] Lymphocytes (Bld) [#/Vol] 1.3 10*3/uL 1.0 - 5.1 K/uL [facility] Lymphocytes/100 WBC (Bld) 14.4 % [facility] MCH (RBC) [Entitic mass] 29.7 pg 26.0 - 34.0 pg [facility] MCHC (RBC) [Mass/Vol] 33.0 g/dL 31.0 - 36.0 g/dL [facility] MCV (RBC) [Entitic vol] 89.8 fL 80.0 - 100.0 fL [facility] Monocytes (Bld) [#/Vol] 0.8 10*3/uL 0.0 - 1.3 K/uL [facility] Monocytes/100 WBC (Bld) 9.3 % [facility] Neutrophils (Bld) [#/Vol] 6.8 10*3/uL 1.7 - 7.7 K/uL [facility] Neutrophils/100 WBC (Bld) 75.2 % [facility] Platelet mean volume (Bld) [Entitic vol] 7.7 fL 5.0 - 10.5 fL [facility] Platelets (Bld) [#/Vol] 238 10*3/uL 135 - 450 K/uL [facility] RBC (Bld) [#/Vol] 4.57 10*6/uL [facility] WBC (Bld) [#/Vol] 9.0 10*3/uL 4.0 - 11.0 K/uL [facility] Comprehensive metabolic 2000 panelon 10-09-2022 Albumin [Mass/Vol] 3.7 g/dL 3.4 - 5.0 g/dL [facility] Albumin/Globulin [Mass ratio] 0.9 {ratio} Low 1.1 - 2.2 [facility] ALP [Catalytic activity/Vol] 66 U/L 40 - 129 U/L [facility] ALT [Catalytic activity/Vol] 8 U/L Low 10 - 40 U/L [facility] Anion gap [Moles/Vol] 8 mmol/L 3 - 16 [facility] AST [Catalytic activity/Vol] 15 U/L 15 - 37 U/L [facility] Bilirubin [Mass/Vol] 0.4 mg/dL 0.0 - 1 .0 mg/dL [facility] Calcium [Mass/Vol] 9.6 mg/dL 8.3 - 10. 6 mg/dL [facility] Chloride [Moles/Vol] 103 mmol/L 99 - 11 0 mmol/L [facility] CO2 [Moles/Vol] 26 mmol/L 21 - 32 mmol/L [facility] Creatinine [Mass/Vol] 0.7 mg/dL 0.6 - 1.1 mg/dL [facility] GFR/1.73 sq M.predicted CKD-EPI (S/P/Bld) [Vol rate/Area] 60 - PINF [facility] Comment on above: Pediatric calculator link https://www.kidney.org/professionals/kdoqi/gfr_calculatorped [...] [Mass/Vol] 91 mg/dL 70 - 99 mg/dL [facility] Interpretation and review of laboratory results Abnormal [facility] Potassium [Moles/Vol] 4.1 mmol/L 3.5 - 5.1 mmol/L [facility] Protein [Mass/Vol] 7.6 g/dL 6.4 - 8.2 g/dL [facility] Sodium [Moles/Vol] 137 mmol/L 136 - 145 mmol/L [facility] Urea nitrogen [Mass/Vol] 10 mg/dL 7 - 20 mg/dL [facility] HCG ( test) Qlon [facility] HCG Qualitative, Serumon HCG ( test) Ql Negative Detects HCG level >10 MIU/mL [facility] No Panel Informationon 10-09 [facility] Troponinon 10-09-2022 Troponin, High Sensitivity 8 ng/L 0 - 14 ng/L [facility] Comment on above: The high-sensitivity troponin T result should not be compared with other troponin methodologies. [facility] Troponin, High Sensitivity 8 ng/L 0 - 14 ng/L [facility] Comment on above: The high-sensitivity troponin T result should not be compared with other troponin methodologies. XR CHEST PORTABLEon 10-10-19 No definite portable radiographic evidence of acute cardiopulmonary disease when patient rotation to the right, patient body habitus and low lung volumes taken a consideration. [facility] EXAMINATION: ONE XRAY VIEW OF THE [...] widening when patient positioning taken a consideration [facility] Bucky Barrios D O - 10/09/2022 [...] and low lung volumes taken a consideration. [facility] Radiology Study observation (narrative) [facility] XR CHEST PORTABLEOrdered By: Bucky Barrios on 10-09-2022 [facility] [employer] Work Phone: FOLATESon 03-17-2020 FOLATES 15.3 ng/mL Normal >5.21 [facility] Comment on above: Performed By: #### L [id number] #### [facility] [address] [place] [address] PREG TEST, UA QUALon 020 TEST,UR QL Negative Normal NEGATIVE [facility] Comment on above: Performed By: #### L [id number] #### [facility] [address] [place] [address] SARS CoV-2, OL, PCR RAPIDon 03-17-2020 SARS CoV-2, OL, PCR RAPID Undetected Normal Undetected [facility] Comment on above: Order Comment: Sympt omatic?->No Indications (select all that apply)->Admission Result Comment: Testing was performed using the Quidel [employer] Direct. Fact sheets for this Emergency Use Authorization (EUA) assay can be found at the following links: For Healthcare Providers: https://www.fda.gov/media/767980/download For Patients: https://www.fda.gov/media/913966/download Test Performed by: [facility],[address] [place] [address], Enrollment Processor: Umu Cuello MD; CLIA#: [id number] Performed By: #### L [id number] #### [facility] [address] [place]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 Patient encounter procedure Kayla Diego JAVA SYBASE DEVELOPER-C -Laboratory [facility] Start: 10-15-2024 End: 10-15-2024 ambulatory Kayla Diego Facility:[facility] Start: 10-06-2024 End: 10-06-2024 ambulatory Kayla Diego JAVA SYBASE DEVELOPER-C Work Phone: -[facility] Start: 10-06-2024 End: 10-06-2024 Patient encounter procedure Candis Chase JAVA SYBASE DEVELOPER-C -[facility] Work Phone: Start: 10-06-2024 End: 10-06-2024 ambulatory [facility] Facility:[facility] Start: 04-14-2024 End: 04-14-2024 Office outpatient visit 15 minutes Bethany Roberts CNP Work Phone: [facility] Comment on above: Acute strain of neck muscle, initial encounter (Primary Dx); Other acute back pain; Acute non intractable tension-type headache Start: 04-14-2024 ambulatory BETHANY ROBERTS [facility] Start: 09-25-2023 ambulatory KYUNG VANG [facility] Start: 09-25-2023 End: 09-26-2023 Emergency department patient visit CARLOS RAQU[facility] Start: 10-09-2022 End: 10-09-2022 Emergency department patient visit Orly Pillai STORE ASSISTANT - CRIMPING PRESS OPERATOR Work Phone: [facility] ED Comment on above: Chest pain, unspecif ied type (Primary Dx); Elevated blood pressure reading Start: 03-16-2020 End: 03-18-2020 Evaluation and management of inpatient NORMA FENTON [facility] Start: 03-04-2020 Patient encounter procedure CHASE~[id number] [facility] Start: 03-04-2020 Patient encounter procedure CHASE~[id number] JEMMA [facility] Start: 02-18-2020 End: 02-18-2020 Patient encounter procedure CHASE~[id number] JEMMA EASTON [facility] Start: 02-18-2020 Patient encounter procedure JULIOCESAR Youssef~[id number] [place] [facility] Start: 09-16-2017 End: 09-16-2017 Emergency department patient visit NAG [facility] Procedures Date Procedure Procedure Detail Performing Clinician Start: 12-11-2024 Radiologic exam chest 2 views Kayla Platt wvof JAVA SYBASE DEVELOPER-C Work Phone: Start: 12-05-2024 Iadna streptococcus group a amplified probe tq Eric Bull STORE ASSISTANT.CRIMPING PRESS OPERATOR Work Phone: Start: 11-22-2024 X-ray of knee, four or more views Kayla Azar JAVA SYBASE DEVELOPER-C Work Phone: Start: 11-21-2024 X-ray of cervical spine Kayla Azar JAVA SYBASE DEVELOPER-C Work Phone: Start: 10-15-2024 Urnls dip stick/tablet reagent auto microscopy Kayla Azarf JAVA SYBASE DEVELOPER-C Work Phone: Start: 10-15-2024 Liquid based cervical cytology screening Kayla Azar JAVA SYBASE DEVELOPER-C Work Phone: Comment on above: NEGATIVE FOR INTRAEPITHELIAL LESION OR M ALIGNANCY. This liquid based Th inPrep(R) pap test was screened withthe use of an image guided system. Start: 10-15-2024 Procedure Kayla Diego JAVA SYBASE DEVELOPER-C Work Phone: Comment on above: Test Ordered: [id number] NuSwab Vaginitis Pl us (VG+)Test(s) 098920- Atopobium vaginae; 695732- BVAB 2;055343- Megasphaera 1was developed and its performance characteristicsdetermined by [employer]. It has not been cleared or approvedby the Food and Drug Administration.Test(s) 469328-Trbftzg albicans, GENET; 630773-Savksrj glabrata, NAAwas developed and its performance characteristicsdetermined by [employer]. It has not been cleared or approvedby [...] Negative =G Reference Range: NegativePerformed at: =[facility] [id number] Director: Liz Brown MD, Phone: [phone] at: [address] [id number] Director: Александр Florian PhD, Phone: [phone] Start: 10-15-2024 Urine culture [facility] [employer] Work Phone: Start: 10-06-2024 Hepatitis A virus antibody, IgM type [facility] Work Phone: Comment on above: A negative anti-HAV IgM result suggests no recent orcurrent HAV infection. Start: 10-06-2024 Hepatitis B core antibody measurement, IgM type Kayla [facility] Work Phone: Start: 10-06-2024 Hepatitis C antibody measurement [facility] Work Phone: Comment on above: Client Requested Flag Start: 10-06-2024 Hepatitis C virus RNA assay [facility]la DavisFram[facility] Work Phone: Start: 10-06-2024 Serologic test for syphilis Kayla Alanis [facility] Work Phone: Start: 04-14-2024 Adult depression screening assessment Bethany Roberts [facility] Work Phone: Start: 11-19-2022 Lipid 1996 panel - Serum or Plasma Viviane Bull STORE ASSISTANT.CRIMPING PRESS OPERATOR Work Phone: Start: 10-09-2022 Assay of troponin quantitative Tom drake STORE ASSISTANT - CRIMPING PRESS OPERATOR Work Phone: Start: 10-09-2022 Radiologic exam chest single view Tom Jacobson STORE ASSISTANT - CRIMPING PRESS OPERATOR Work Phone: Start: 10-09-2022 Gonadotropin chorionic qualitative Tom Jacobson STORE ASSISTANT - CRIMPING PRESS OPERATOR Work Phone: Start: 10-09-2022 Ecg routine ecg w/least 12 lds w/i&r Tom Jacobson STORE ASSISTANT - CRIMPING PRESS OPERATOR Work Phone: Plan of Treatment Date Care Activity Detail Author Start: 11-20-2027 Lipid panel Lipid Screening [facility] Start: 11-19-2025 Diabetes Screening Diabetes Screening [facility] Start: 07-04-2025 DTaP/Tdap/Td vaccine (2 - Td or Tdap) DTaP/Tdap/Td vaccine (2 - Td or Tdap) [facility] Start: 07-04-2025 Immunization: DTaP/Tdap/Td (2 - Td or Tdap) Immunization: DTaP/Tdap/Td (2 - Td or Tdap) [facility] Start: 07-04-2025 Urine microalbumin profile DTaP,Tdap,Td Vaccine (2 - Td or Tdap) [facility] Start: 04-14-2025 Depression screening Depression Screening [facility] Start: 11-30-2024 Influenza vaccination Influenza Vaccine (#1) [facility] Start: 11-22-2024 [facility] Start: 10-06-2024 Serologic test for syphilis [facility] Start: 10-06-2024 [facility] Start: 12-01-2023 Immunization: COVID-19 ( season) Immunization: COVID-19 ( season) [facility] Start: 12-01-2023 Immunization: Influenza (MyChart) (#1) Immunization: Influenza (MyChart) (#1) [facility] Start: 11-20-2023 Hemoglobin A1c measurement Diabetes Screening [facility] Start: 11-20-2023 Physical examination Comprehensive Physical Exam [facility] Start: 03-15-2023 Screening for malignant neoplasm of cervix Cervical Cancer Screening/Pap Smear (MyChart) [facility] Start: 10-30-2022 Influenza vaccination Flu vaccine (#1) [facility] Start: 09-15-2021 COVID-19 Vaccine (4 - Booster for Moderna series) COVID-19 Vaccine (4 - Booster for Moderna series) [facility] Start: 11-27-2020 Screening for malignant neoplasm of colon [facility] Start: 05-17-2020 Hepatitis B Vaccine (2 of 3 - 19+ 3-dose series) Hepatitis B Vaccine (2 of 3 - 19+ 3-dose series) [facility] Start: 05-17-2020 Immunization: Hepatitis B (2 of 3 - 19+ 3-dose series) Immunization: Hepatitis B (2 of 3 - 19+ 3-dose series) [facility] Start: 05-06-2020 Lipid panel Lipids [facility] Start: 2015 Screening for malignant neoplasm of breast [facility] Start: 11-27-2005 Screening for malignant neoplasm of cervix [facility] Start: 11-27-1996 Screening for malignant neoplasm of cervix [facility] Start: 11-27-1993 Anxiety Screening Anxiety Screening [facility] Start: 11-27-1993 Depression Screening Depression Screening [facility] Start: 11-27-1993 Hepatitis C screening Hepatitis C screen [facility] Start: 11-27-1993 HIV screening HIV Screening [facility] Start: 11-27-1990 HIV screening HIV screen [facility] Start: 1987 Depression Monitoring Depression Monitoring [facility] Start: 1975 Screening for malignant neoplasm of colon Abnormal Colonoscopy Follow Up [facility] Alanine aminotransfe rase [Enzymatic activity/volume] in Serum or Plasma [facility] Albumin [Mass/volume ] in Serum or Plasma [facility] Alkaline phosphatase [Enzymatic activity/volume] in Serum or Plasma [facility] Anion gap in Serum o r Plasma [facility] Bilirubin, total measurement [facility] BUN/Creatinine ratio [facility] Calcium [Mass/volume ] in Serum or Plasma [facility] Carbon dioxide, tota l [Moles/volume] in Central venous blood [facility] Cholesterol [Mass/vo lume] in Serum or Plasma [facility] Cholesterol in HDL [Mass/volume] in Serum or Plasma [facility] Creatinine [Mass/vol ume] in Serum or Plasma [facility] EKG 12 Lead EKG 12 Lead ECG Routine 10/09/2022 11:58 AM EDT [facility] Work Phone: Glucose [Mass/volume ] in Serum or Plasma [facility] Hepatitis A virus Ig M Ab [Presence] in Serum [facility] Hepatitis B core ant ibody measurement, IgM type [facility] Hepatitis B surface antigen measurement [facility] Hepatitis C antibody measurement [facility] Low density lipoprot ein cholesterol measurement [facility] Measurement of renal function [facility] Potassium measurement [facility] Serum chloride measurement [facility] Sodium measurement [facility] Total cholesterol:HD L ratio measurement [facility] Total protein measurement [facility] Triglycerides measurement [facility] Urea nitrogen [Mass/ volume] in Serum or Plasma [facility] VLDL cholesterol measurement [facility] Immunizations Immunization Date Immunization Notes Care Provider Eden grijalva 07-21-2021 COVID-19, mRNA, Mode rna monovalent, age 12+ [facility] CRIMPING PRESS OPERATOR Work Phone: [facility] 06-26-2021 influenza, injectabl e, quadrivalent, preservative free [facility] CRIMPING PRESS OPERATOR Work Phone: [facility] 06-26-2021 influenza virus vaccine, unspecified formulation Eric Bull APRN.CRIMPING PRESS OPERATOR Work Phone: [facility] 05-09-2020 COVID-19, mRNA, Mode rna monovalent, age 12+ [facility] CRIMPING PRESS OPERATOR Work Phone: [facility] 04-19-2020 hepatitis A vaccine, adult dosage [facility] CRIMPING PRESS OPERATOR Work Phone: [facility] 04-19-2020 hepatitis B vaccine, adult dosage [facility] CRIMPING PRESS OPERATOR Work Phone: [facility] 04-14-2020 COVID-19, mRNA, Mode rna monovalent, age 12+ [facility] CRIMPING PRESS OPERATOR Work Phone: [facility] 03-08-2020 influenza, injectabl e, quadrivalent, preservative free [facility] CRIMPING PRESS OPERATOR Work Phone: [facility] 03-27-2018 influenza, injectabl e, quadrivalent, preservative free [facility] CRIMPING PRESS OPERATOR Work Phone: [facility] 07-05-2015 tetanus toxoid, redu stefani diphtheria toxoid, and acellular pertussis vaccine, adsorbed Orly Brown STORE ASSISTANT - CRIMPING PRESS OPERATOR Work Phone: [facility] Payers Date Payer Category Payer Self-pay 2024 Medicaid [facility] [id number] 2021 Unknown [id number] 2015 Private Health Insurance [id number] 1975 Unknown [id number]. 128 1975 Unknown [id number] 2.0.1.217083.3.579.2. 1287 1975 Unknown [id number] .[id number]. 1287 1975 Unknown [id number] 2.840.1.247456.3.579.2. 1279 Medicare [id number] Unknown [id number] 2.840.1.758877.3.579.2. 462 Unknown [id number] 2.16.840.1.673505.3.579.2. 462 Unknown [id number] 2.16.840.1.952277.3.579.2. 462 Unknown [id number] 2.16.840.1.050891.3.579.2. 462 Unknown [id number] 2.16.840.1.838131.3.579.2. 462 Unknown [id number] 2.16.840.1.010387.3.579.2. 462 Unknown [id number] 2.16.840.1.807775.3.579.2. 462 Unknown [id number] 2.16.840.1.883527.3.579.2. 462 Unknown [id number] 2.16.840.1.611426.3.579.2. 462 Unknown [id number] 2.16840.1.006911.3.579.2. 462 Unknown [id number] 2.16.840.1.572739.3.579.2. 462 Unknown [id number] 2.16.840.1.954796.3.579.2. 462 Unknown [id number] 2.16.840.1.858532.3.579.2. 462 Unknown [id number] 2.16840.1.982634.3.579.2. 462 Unknown [id number] 2.16840.1.886184.3.579.2. 462 Unknown [id number] 2.16840.1.905258.3.579.2. 462 Unknown [id number] 2.840.1.532367.3.579.2. 462 Social History Date Type Detail Facility Start: 10-09-2022 End: 04-14-2024 Tobacco smoking status RIIS Ex-smoker [facility] End: 04-01-2000 History of tobacco use Current smoker [facility] End: 04-01-2000 History of tobacco use Cigarette Smoker [facility] Start: 10-09-2022 End: 12-05-2024 Cigarettes smoked current (pack per day) - Reported 0.5 [facility] Host Committee [facility] Start: 10-09-2022 End: 12-05-2024 Tobacco use and exposure Smokeless tobacco non-user [facility] Host Committee [facility] Start: 10-09-2022 Alcohol intake 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 of alcohol (finding) [facility] Host Committee [facility] Start: 11-09-2012 Alcohol Comment rarely [facility] [employer] [facility] Start: 1975 Sex Assigned At Female B ON Host Committee [facility] Start: 04-14-2024 Alcoholic beverage intake Ex-drinker (finding) [facility] Start: 04-14-2024 End: 12-05-2024 Tobacco use panel [facility] Start: 12-05-2024 Adult Depression Screening Assessment 0 [facility] Start: 01-10-2022 Alcohol Comment not in the past 12 y ears [facility] Start: 03-27-2022 Gender identity Identifies as female gender (finding) [facility] Start: 03-27-2022 Sexual orientation Heterosexual (fin ding) [facility] Start: 11-22-2024 [facility] ever smoked [facility] Start: 12-05-2024 Tobacco smoking [facility] Start: 1975 Sex assigned at Not on file C [facility] Clinical Notes 09-25-2023 to 12-13-2024 Eric Bull APRN.CRIMPING PRESS OPERATOR - 12/05/2024 2:22 PM EDT Note Date & Type Note Facility 12-13-2024 Radiology Diagnostic study note [facility] Imaging Services [address] [place] [address] Chest PA and Lateral MR#: [id number] Acct: [id number] Name: LINDA LYNN Rep #: [id number] : 1975 F 49 From: [place] Almonte MD PCP: LOLA Turner Status: REG C DONNA Study:Chest PA and Lateral Date of Exam: 12/11/24 Exam# [id number] Ordering Dr: Kayla Diego PROCEDURE: CHEST PA AND LATERAL 12/11/2024 REASON FOR EXAM: WHEEZING TECHNIQUE: Procedure Code: RADCXR Modality: DX Procedure: CHEST PA AND LATERAL COMPARISON: None. FINDINGS: LUNGS AND PLEURA: The lungs are clear. No pleural effusion or pneumothorax. HEART AND MEDIASTINUM: The heart size and mediastinal contours are normal. BONES: No acute osseous abnormality. RAD/Chest PA and Lateral IMPRESSION: NO ACUTE FINDINGS. Reading Location: [id number] CC: LOLA Diego ~ Fiber Artist: Signed [facility] 12-05-2024 Note HNO ID: [id number] Author: ERIC BULL APRN.CRIMPING PRESS OPERATOR Service: ? Author Type: Nurse Practitioner Type: Progress Notes Filed: 12/05/2024 14:26 Note Text: [facility] Denisse Lynn is a 49 year old female. Patient presents with: Sore Throat: MCKEON, chest congestion x1 day Sore Throat The patient is a 49-year-old female with a history of a heart murmur, presenting with a sore throat, headache, and fever. Sore Throat and Headache: - Onset yesterday. - Sore throat worsens with swallowing. - Associated with headache and subjective fever. - Denies myalgias, cough, or congestion. - Reports green mucus production, but denies chest congestion. - Denies facial pressure. - No history of allergies or sinus issues. Heart Murmur: - Known history of heart murmur. Review of Systems HENT: Positive for sore throat. Constitutional: (+) fever Head: (+) headache Ears/Nose/Mouth/Throat: (+) sore throat, (-) nasal congestion, (-) facial pressure Respiratory: (+) green sputum, (-) cough, (-) chest congestion Musculoskeletal: (-) myalgia Objective BP 106/75 Pulse 88 Temp 36.9 ?C (98.4 ?F) Resp 18 Wt 122.6 kg (270 lb 4.5 oz) SpO2 97% Physical Exam General: No acute distress. HEENT: Erythematous pharynx, no abscesses or swelling noted. CV: Cardiac murmur auscultated. { 1. Sore throat (J02.9) - Acute onset with associated headache, subjective fever, and green mucus drainage; no cough, congestion, or facial pressure. - Throat exam reveals erythema without abscess or swelling. - Strep test negative. - Patient declines viral testing at this time. - Supportive care at home. - Follow-up in 10-14 days if symptoms do not improve. and Recording using [employer] software for draft documentation of the visit was discussed with the patient/authorized assisted sales representative; all questions welcomed and answered. Patient/authorized assisted sales representative agreed to proceed History and Record Review External record(s) reviewed: no prior records. Disposition The patient was discharged. Procedures [facility] 12-05-2024 History of Present illness Narrative [facility] Denisse Lynn is a 49 year old female. Patient presents with: Sore Throat: MCKEON, chest congestion x1 day Sore Throat The patient is a 49-year-old female with a history of a heart murmur, presenting with a sore throat, headache, and fever. Sore Throat and Headache: - Onset yesterday. - Sore throat worsens with swallowing. - Associated with headache and subjective fever. - Denies myalgias, cough, or congestion. - Reports green mucus production, but denies chest congestion. - Denies facial pressure. - No history of allergies or sinus issues. Heart Murmur: - Known history of heart murmur. Review of Systems HENT: Positive for sore throat. Constitutional: (+) fever Head: (+) headache Ears/Nose/Mouth/Throat: (+) sore throat, (-) nasal congestion, (-) facial pressure Respiratory: (+) green sputum, (-) cough, (-) chest congestion Musculoskeletal: (-) myalgia Objective BP 106/75 Pulse 88 Temp 36.9 C (98.4 F) Resp 18 Wt 122.6 kg (270 lb 4.5 oz) SpO2 97% Physical Exam General: No acute distress. HEENT: Erythematous pharynx, no abscesses or swelling noted. CV: Cardiac murmur auscultated. { 1. Sore throat (J02.9) - Acute onset with associated headache, subjective fever, and green mucus drainage; no cough, congestion, or facial pressure. - Throat exam reveals erythema without abscess or swelling. - Strep test negative. - Patient declines viral testing at this time. - Supportive care at home. - Follow-up in 10-14 days if symptoms do not improve. and Recording using [employer] software for draft documentation of the visit was discussed with the patient/authorized assisted sales representative; all questions welcomed and answered. Patient/authorized assisted sales representative agreed to proceed History and Record Review External record(s) reviewed: no prior records. Disposition The patient was discharged. Procedures documented in this encounter [facility] 11-22-2024 Discharge summary [facility] 11-22-2024 Discharge summary Note Date/Time November 22, 2024 2:19pm [facility] Medical Records Department [address] [place] [address] Emergency Department Summary 11/22/24 MR#: [id number] Acct: [id number] Name: LINDA LYNN Rep #:[id number] : 1975 48 From: [...] year ago. Patient denies any fevers orchills PFSH PFS Medical History Anxiety disorder Hallucinations Insomnia UTI [...] hydrocortisone 2.5 % topical cream 1 applic NE QD-BID PRN rectal pain 10/06/24 Unknown Rx [...] following commands and that she was at [facility] the year is 2024 sensation grossly [...] reviewed she will be reevaluated. Patient given Melvin and Zofran. Patient's x-ray of her left knee reviewed by myself by radiology showed no acutefractures or dislocations no joint effusion noted. Discussed results with the patient. She [place] and we will refer her to 1 today for steroid injections. Shewill also be given prescription for Voltaren gel. She is also advised to rotateTylenol and ibuprofen [id number]. She advised return with worsening symptoms or concerns. She is agreeable this plan all question concerns answeredshe was discharged home in stable condition. Radiography Diagnostic Testing: Clinical Impression(s) from Imaging Studies Knee X-Ray 11/22/24 13:10 IMPRESSION: No acute osseous abnormalities. Reading Location: [facility] Discharge Plan Triage Chief Complaint: Lower Extremity [...] Instructions: administer 1-3 hours before bedtime all seltzer fizzy melts 200 mg PO PRN ondansetron HCl [...] % cream with perineal applicator 1 applic NE QD-BID PRN (Reason: rectal pain and bleeding) [...] findings here today. Rotate Tylenol and ibuprofen [id number]-[id number] when you do this you can take something every 3 hoursfor pain. Max dose of Tylenol in 24 hours 4000 mg max dose of ibuprofen in 24 hours 3200 mg. Use the Voltaren gel that was sent to the pharmacy as prescribed. Follow-up with the orthopedic team they referred to. Return with worsening symptoms or any other concerns Print Language: Barbadian Disposition Disposition: Home, Self Care What to do if you have Problems For any increased pain, shortness of breath, bleeding, nausea or vomiting, chestpain, or any unexpected problems, contact your Primary Care Provider. Call [facility] ([phone]) or report to the closest Emergency Room. Call 911 if necessary. 11/22/24 1419 <Electronically signed by Tom Donald DO> Cosigner Signature (if applicable): CC: LOLA Diego ~ Signed [facility] Work Phone: 1(559) 140-276408-24-2025 Radiology Diagnostic study note [facility] Imaging Services [address] [place] [address] Knee 4 or More Views MR#: [id number] Acct: [id number] Name: LINDA LYNN Rep #: [id number] : 1975 F 48 From: Dominick Mills MD PCP: LOLA Turner Status: REG E R Study:Knee 4 or More Views Date of Exam: 11/22/24 Exam# [id number] Ordering Dr: Patricia Donald DO PROCEDURE: KNEE 4 OR MORE VIEWS 11/22/2024 REASON FOR EXAM: PAIN, 3 WEEKS TECHNIQUE: KNEE 4 OR MORE VIEWS Laterality: Left COMPARISON: None FINDINGS: Bones: No acute bony abnormalities. Joints: Unremarkable. Effusion: No effusion. Soft tissues: No soft tissue abnormalities. Other: RAD/Knee 4 or More Views IMPRESSION: No acute osseous abnormalities. Reading Location: [facility] CC: LOLA Diego; Dr. Tom Donald DO ~ Fiber Artist: Signed [facility]08-23-2025 Radiology Diagnostic study note [facility] Imaging Services [address] [place] [address] Cerv Spine 4 or 5 Views MR#: [id number] Acct: [id number] Name: LINDA LYNN Rep #: [id number] : 1975 F 48 From: Pet er Peer DO PCP: LOLA Turner Status: REG C LI Study:Cerv Spine 4 or 5 Views Date of Exam: 11/21/24 Exam# [id number] Ordering Dr: Jacobo Carpenter D.C. PROCEDURE: CERV SPINE 4 OR 5 VIEWS 11/21/2024 REASON FOR EXAM: CERVICAL RADICULOPATHY TECHNIQUE: CERV SPINE 4 OR 5 VIEWS FINDINGS: Vertebrae: Vertebral body heights are intact. disc spaces: Disc heights are fairly well-maintained. Alignment: Alignment is fairly well-maintained with some cervical spine lordosispresent. soft tissues: No prevertebral soft tissue thickening Other: The right neural foramen are widely patent. There is questionable narrowing of the left C3-4and C4-5 neural foramina from uncovertebral joint spurring and endplate spondylosis RAD/Cerv Spine 4 or 5 Views IMPRESSION: Possible neural foramen stenosis as detailed above Disclaimer: Reading Location: [facility] CC: DC Dr. Paulo Carpenter; BELKIS-C Kayla Diego ~ Fiber Artist: Signed [facility]07-08-2025 Evaluation note* Diagnosis Onset Date Resolution Status Admit Date Abdominal pain acute October 06, 2024 9:32am Constipation acute October 06 9:32am Nausea acute October 06, 2024 9:32am [facility] Work Phone: 1(305) 820-735407-08-2025 Evaluation note* Diagnosis Onset Date Resolution Status Admit Date Abdominal pain acute October 06, 2024 9:32am Constipation acute October 06 9:32am Nausea acute October 06, 2024 9:32am Osteoarthritis of left knee acute November 26, 2024 3:01pm Suprapatellar effusion of knee acute November 26, 2024 3:01pm Osteoarthritis of left knee acute December 17, 2024 9:18am Suprapatellar effusion of knee acute December 17, 2024 9:18am [facility] Work Phone: 1(558) 878-950001-14-2025 History of Present illness Narrative* Bethany Roberts, CRIMPING PRESS OPERATOR - 04/14/2024 4:30 PM EST [facility] [address] [id number] Subjective Name: Linda Lynn Date of : 1975 (48 y.o.) Date of Service: 04/14/2024 Chief Complaint Patient presents with Back Pain Pulled muscle in neck and back,MCKEON Sx started yesterday History of Present Illness: Linda Lynn is a(n) 48 y.o. female here today [...] discussed BETHANY ROBERTS CNP documented in this encounterUniversity [facility]als [facility] [id number] Instructions* Patient Instructions* Bethany Roberts CNP - 04/14/2024 4:30 PM EST Alternate 1000mg of tylenol with 600mg of ibuprofen Robaxin prn Be aware this causes drowsiness documented in this encounterUniversity Hospitals Elyria Medical [id number] NoteTranscription Authentication Interface Message Text CURRENT STATUS IS EMERGENCY . : Any questions regarding PATIENT CLASS/STATUS should be directed to the Care Management Departments: [facility] [phone] or [facility] [phone] or [facility] [phone].[facility] note* Diagnosis Chest pain, unspecified type- Primary Elevated blood pressure reading Elevated blood pressure reading without diagnosis of hypertension [facility]* Diagnosis Acute strain of neck muscle, initial encounter- Primary Other acute back pain Acute non intractable tension-type headache documented in this encounter HealthEvaluation noteNo assessment information availableKaiser Medical Center Work Phone: Evaluation note* Diagnosis Sore throat- Primary Acute pharyngitis [facility]* Attachments The following attachments cannot be sent through Care Everywhere. * Chest Pain (Barbadian) * Blood Pressure: Elevated (Barbadian) [facility] Discharge instructionsAdditional Instructions Your x-ray did not show any acute findings here today. Rotate Tylenol and ibuprofen [id number] when you do this you can take something every 3 hours for pain. Max dose of Tylenol in 24 hours 4000 mg max dose of ibuprofen in 24 hours 3200 mg. Use the Voltaren gel that was sent to the pharmacy as prescribed. Follow-up with the orthopedic team they referred to. Return with worsening symptoms or any other concernsWReg[facility] Work Phone: Hospital Discharge instructionsAmbulatory Orders* Physical Therapy Referral Location: None Selected [facility] Work Phone: Reason for referral (narrative)No reason for referral information availableKaiser Medical Center Work Phone: Summary Purpose Family History No [...] Do you have a Healthcare Power of Certified Medical Biller? No November 22, 2024 1:08pm Chief Complaint [...] m lower November 22, 2024 12 :33pm lower ext November 24, 2024 1: 20pm Chief Complaint Admit Date CONSTIPATION October 06, 2024 9:32a m lower November 22, 2024 12 :33pm lower ext November 24, 2024 1: 20pm LEFT KNEE November 26, 2024 3: 01pm Chief Complaint Admit Date CONSTIPATION October 06, 2024 9:32a m lower November 22, 2024 12 :33pm lower ext November 24, 2024 1: 20pm LEFT KNEE November 26, 2024 3: 01pm LABS AND XRAY December 11, 2024 4:30pm LEFT KNEE December 17, 2024 9:18am Reason for Visit Admit Date Abdominal pain October 06, 2024 9:32a m Constipation October 06, 2024 9:32a m Nausea October 06, 2024 9:32a m Osteoarthritis of left knee November 26, 2024 3:01pm Suprapatellar effusion of knee November 262024 3:01pm Osteoarthritis of left knee December 172024 9:18am Suprapatellar effusion of knee December 17, 2024 9:18am Additional Source Comments INFORMATION SOURCE (unrecogn ized section and content) DATE CREATED AUTHOR 09/16/2017 [facility] DATE CREATED AUTHOR AUTHOR'S ORGANIZ ATION 03/18/2020 [facility] DATE CREATED AUTHOR AUTHOR'S ORGANIZ ATION 11/11/2023 [facility] DATE CREATED AUTHOR AUTHOR'S ORGANIZ ATION 04/21/2024 [facility] DATE CREATED AUTHOR AUTHOR'S ORGANIZ ATION 12/07/2024 [facility] DATE CREATED AUTHOR AUTHOR'S ORGANIZ ATION 02/03/2025 [facility] Reason for Visit (unrecogniz ed section and content) Reason Comments Chest Pain Started at 3am this morning woke her up, hurts in middle of chest and down left arm. Hx anxiety, denies cards hx, also relapsed on cocaine a week ago. Reason Comments Back Pain Pulled muscle in nec k and back,MCKEON Sx started yesterday Reason Comments Sore Throat MCKEON, chest congestion x1 day Scheduled Active and Recently Administ ered Medications (unrecognized section and content) Medication Order 10/07/2022 10/08/2022 10/09/2022 aspirin tablet 325 mg (COMPLETED) 325 mg, Oral, ONCE, 1 dose, On Sat10/09/22 at 1230 1229 (Given - Provid er: Nevaeh Suggs, MALACHI) ketorolac (TORADOL) injection 15 mg (COMPLETED) 15 [...] ordered. 1233 (Given - Provid er: Nevaeh Suggs, MALACHI) ondansetron (ZOFRAN) injection 4 mg (COMPLETED) 4 mg, IntraVENous, ONCE, 1 dose, On Sat10/09/22 at 1230 1233 (Given - Provid er: Nevaeh Suggs, MALACHI) Care Teams (unrecognized sec tion and content) [employer] Rep[employer]r Relationship Specialty Start Date End Date Orly Pillai APRN - MELODY PCP - General Nurse Practitioner 04/03/18 [employer] Relationship Specialty Start Date End Date Carlos García, CRIMPING PRESS OPERATOR [address] [facility] [place] [address] PCP - General Nurse Practitioner 01/10/22 Team Status: Active Member Role/Relationship Status Dates Kayla Diego , JAVA SYBASE DEVELOPER-C Primary Care Provider Active Team Status: Active Member Role/Relationship Status Dates Kayla Diego , JAVA SYBASE DEVELOPER-C Primary Care Provider Active Start: October 06, 2024 Kayla Diego , JAVA SYBASE DEVELOPER-C Attending Provider Active Start: October 06, 2024 Kayla Diego , JAVA SYBASE DEVELOPER-C Referring Provider Active Start: October 06, 2024 Team Status: Inactive Member Role/Relationship Status Dates Candis Stone JAVA SYBASE DEVELOPER-C Attending Provider Active Start: October 06, 2024 End: October 06, 2024 Kayla Diego , JAVA SYBASE DEVELOPER-C Primary Care Provider Active Start: October 06, 2024 End: October 06, 2024 Kayla Davishocristel , JAVA SYBASE DEVELOPER-C Referring Provider Active Start: October 06, 2024 End: October 06, 2024 Team Status: Inactive Member Role/Relationship Status Dates Kayladallas Diego , JAVA SYBASE DEVELOPER-C Primary Care Provider Active Start: October 06, 2024 End: October 06, 2024 Kayla Diego , JAVA SYBASE DEVELOPER-C Attending Provider Active Start: October 06, 2024 End: October 06, 2024 Kayla Diego , JAVA SYBASE DEVELOPER-C Referring Provider Active Start: October 06, 2024 End: October 06, 2024 Team Status: Inactive Member Role/Relationship Status Dates Kyala Diego , JAVA SYBASE DEVELOPER-C Primary Care Provider Active Start: October 15, 2024 End: October 15, 2024 Kayla Diego , JAVA SYBASE DEVELOPER-C Attending Provider Active Start: October 15, 2024 End: October 15, 2024 Team Status: Active Member Role/Relationship Status Dates Kayla Diego , JAVA SYBASE DEVELOPER-C Primary Care Provider Active Start: November 21, 2024 Dr. Paulo Carpenter DC Attending Provider Active Start: November 21, 2024 Dr. Paulo Carpenter DC Referring Provider Active Start: November 21, 2024 Team Status: Inactive Member Role/Relationship Status Dates Kayla Diego , JAVA SYBASE DEVELOPER-C Primary Care Provider Active Start: November 22, 2024 End: November 22, 2024 Dr. Tom Donald DO Emergency Provider Active Start: November 22, 2024 End: November 22, 2024 Team Status: Inactive Member Role/Relationship Status Dates Kayla Diego , JAVA SYBASE DEVELOPER-C Primary Care Provider Active Start: November 24, 2024 End: November 24, 2024 Ed Physician Provider Emergency Provider Active Start: November 24, 2024 End: November 24, 2024 Team Status: Inactive Member Role/Relationship Status Dates Kayla Diego , JAVA SYBASE DEVELOPER-C Primary Care Provider Active Start: November 21, 2024 End: November 21, 2024 Dr. Paulo Carpenter DC Attending Provider Active Start: November 21, 2024 End: November 21, 2024 Dr. Paulo Carpenter DC Referring Provider Active Start: November 21, 2024 End: November 21, 2024 Team Status: Active Member Role/Relationship Status Dates Kayla Diego , JAVA SYBASE DEVELOPER-C Primary Care Provider Active Start: November 26, 2024 Kayla Diego , JAVA SYBASE DEVELOPER-C Referring Provider Active Start: November 26, 2024 Katie Sanches JAVA SYBASE DEVELOPER-C Attending Provider Active Start: November 26, 2024 Team Status: Inactive Member Role/Relationship Status Dates Kayla Diego JAVA SYBASE DEVELOPER-C Primary Care Provider Active Start: November 26, 2024 End: November 26, 2024 Kayla Diego , JAVA SYBASE DEVELOPER-C Referring Provider Active Start: November 26, 2024 End: November 26, 2024 Katie Sanches JAVA SYBASE DEVELOPER-C Attending Provider Active Start: November 26, 2024 End: November 26, 2024 Team Status: Active Member Role/Relationship Status Dates Kayla Diego , JAVA SYBASE DEVELOPER-C Primary care physician Active Team Status: Inactive Member Role/Relationship Status Dates Kayla Diego JAVA SYBASE DEVELOPER-C Primary care physician Active Start: October 06, 2024 End: October 06, 2024 Kayla Diego JAVA SYBASE DEVELOPER-C Attending physician Active Start: October 06, 2024 End: October 06, 2024 Kayla Diego JAVA SYBASE DEVELOPER-C Referring Provider Active Start: October 06, 2024 End: October 06, 2024 Team Status: Inactive Member Role/Relationship Status Dates Candis Stone JAVA SYBASE DEVELOPER-C Attending physician Active Start: October 06, 2024 End: October 06, 2024 Kayla Diego , JAVA SYBASE DEVELOPER-C Primary care physician Active Start: October 06, 2024 End: October 06, 2024 Kayla Diego , JAVA SYBASE DEVELOPER-C Referring Provider Active Start: October 06, 2024 End: October 06, 2024 Team Status: Inactive Member Role/Relationship Status Dates Kayla Diego NP-C Primary care physician Active Start: October 15, 2024 End: October 15, 2024 THUY TurnerC Attending physician Active Start: October 15, 2024 End: October 15, 2024 Team Status: Inactive Member Role/Relationship Status Dates Kayla Diego JAVA SYBASE DEVELOPER-C Primary care physician Active Start: November 21, 2024 End: November 21, 2024 Dr. Paulo Carpenter DC Attending physician Active Start: November 21, 2024 End: November 21, 2024 Dr. Paulo Carpenter DC Referring Provider Active Start: November 21, 2024 End: November 21, 2024 Team Status: Inactive Member Role/Relationship Status Dates Kayla Diego NP-C Primary care physician Active Start: November 22, 2024 End: November 22, 2024 Dr. Tom Donald DO Attending physician Active Start: November 22, 2024 End: November 22, 2024 Dr. Tom Donald DO Emergency Department Physician A ctive Start: November 22, 2024 End: November 22, 2024 Team Status: Inactive Member Role/Relationship Status Dates Kayla Diego NP-C Primary care physician Active Start: November 24, 2024 End: November 24, 2024 Ed Physician Provider Attending physician Active Start: November 24, 2024 End: November 24, 2024 Ed Physician Provider Emergency Department Physician A ctive Start: November 24, 2024 End: November 24, 2024 Team Status: Inactive Member Role/Relationship Status Dates Kayla Diego NP-C Primary care physician Active Start: November 26, 2024 End: November 26, 2024 Kayla Diego NP-C Referring Provider Active Start: November 26, 2024 End: November 26, 2024 LOLA Hawkins Attending physician Active Start: November 26, 2024 End: November 26, 2024 Team Status: Active Member Role/Relationship Status Dates Kayla Diego NP-C Primary care physician Active Start: December 11, 2024 Kayla Diego NP-C Attending physician Active Start: December 11, 2024 Kayla Diego NP-C Referring Provider Active Start: December 11, 2024 Team Status: Inactive Member Role/Relationship Status Dates LOLA Turner Primary care physician Active Start: December 17, 2024 End: December 17, 2024 LOLA Turner Referring Provider Active Start: December 17, 2024 End: December 17, 2024 LOLA Hawkins Attending physician Active Start: December 17, 2024 End: December 17, 2024 Team Status: Inactive Member Role/Relationship Status Dates LOLA Turner Primary care physician Active Start: December 11, 2024 End: December 11, 2024 LOLA Turner Attending physician Active Start: December 11, 2024 End: December 11, 2024 LOLA Turner Referring Provider Active Start: December 11, 2024 End: December 11, 2024 Source Comments (unrecognize d section and [...] release of HIV test results or diagnoses. [id number] CenterIn the event this information is protected by the Federal Confidentiality of Alcohol and Drug Abuse Patient Records regulations: The Federal rules restrict any use of the information to criminally investigate or prosecute any alcohol or drug abuse patient.[facility] Goals (unrecognized section and content) Goals may [...] BE BASED ON THE PRIMARY CLINICAL RECORDS. [facility]. provides no warranty or guarantee of the accuracy or completeness of information in this document.
--- NOTE | 2025-02-13 08:01 | MRI_ITS ---
PROCEDURE: LOWER EXT JOINT ONLY (ROUTINE) 02/13/2025 REASON FOR EXAM: LEFT KNEE PAIN TECHNIQUE: Procedure Code: MRILEJ Modality: MR Procedure: LOWER EXT JOINT ONLY (ROUTINE) T1, T2, PD, multiplanar and multisequence images were obtained of the left knee, without IV contrast administration. COMPARISON: None FINDINGS: Bone Marrow: There is no bony contusion or occult fracture. There is subcortical cyst formation in the superior central patellar articular surface with a component of the developing osteochondral defect measuring 0.8 x 0.7 cm with no free fragment. Subcortical edema is noted in the medial tibial plateau. Cruciate ligaments: There is a edema and attenuation throughout the anterior cruciate ligament without laxity, grade 2 sprain. The posterior cruciate appears intact. Collateral ligaments: There is thickening, edema, and attenuation in the mid and upper portion of the medial collateral ligament without laxity, grade 2 sprain. The lateral collateral ligament complex appears intact. Menisci: There is a horizontal tear in the posterior horn and body of the medial meniscus which extends to the tibial surface. The lateral meniscus has a horizontal tear in the posterior horn which extends to the tibial surface. Extensor components. The distal quadriceps and patellar tendon appear intact. Effusion: There is a moderate joint effusion. There is a 3.5 x 1.2 x 0.8 cm Shah's cyst. 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 There is severe chondromalacia in the central portion of the lateral patellar facet. MRI/Lower Ext Joint Only (Routine) IMPRESSION: There is subcortical cyst formation in the superior central patellar articular surface with a component of the developing osteochondral defect measuring 0.8 x 0.7 cm with no free fragment. Subcortical edema is noted in the medial tibial plateau. There is a edema and attenuation throughout the anterior cruciate ligament with out laxity, grade 2 sprain. There is thickening, edema, and attenuation in the mid and upper portion of the medial collateral ligament without laxity, grade 2 sprain. There is a horizontal tear in the posterior horn and body of the medial meniscu s which extends to the tibial surface. The lateral meniscus has a horizontal tear in the posterior horn which extends to the tibial surface. There is a moderate joint effusion. There is a 3.5 x 1.2 x 0.8 cm Shah's cyst. 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 There is severe chondromalacia in the central portion of the lateral patellar f acet. Reading Location: [facility]
== END | disposition home or self-care (01) ==
LOC: MRI 07:52
PROVIDERS: PCP Nurse Practitioner Family; Referring Provider Nurse Practitioner Family; Visit Provider Nurse Practitioner Family
DX: M25.469 Effusion, unspecified knee (principal)
CPT/HCPCS: 73721